=== PATIENT | male | born 1995 | race Hispanic/Latino ===

== ENCOUNTER 2018-04-02 12:14 | Inpatient (IN) | payer SELFPAY ==
[2018-04-02] MEDS ORDERED: NA CHLORIDE 0.9% 2,000 ML ONE (12:32)
[2018-04-02] MEDS ORDERED: ONDANSETRON 4 MG/2 ML VIAL ONE (12:32)
[2018-04-02] MEDS ORDERED: FENTANYL CITR 100 MCG/2 ML ONE (12:47)
[2018-04-02 12:49] LABS: Arterial Blood Carboxyhemoglob 1.4 % (0-1.5); Blood Gas Oxyhemoglobin 93.9 % (94-97); Blood O2 Saturation 96.6 % (92-98.5)
--- NOTE | 2018-04-02 12:58 | ER ---
Nurse's Notes [facility] Name: Tano Shelley Jr Age: 22 yrs Sex: Male : 1995 Arrival Date: 04/02/2018 Time: 12:18 Bed 6 Private MD: None, None Diagnosis: Type 1 diabetes mellitus with ketoacidosis without coma Presentation: 04/02 12:24 Presenting complaint: Patient states: N/V shortness of breath with high FSBS at home. aj Transition of care: patient was not received from another setting of care. Onset of symptoms was April 02, 2018. Risk Assessment: Do you want to hurt yourself or someone else? Patient reports no desire to harm self or others. Care prior to arrival: None. 12:24 Method Of Arrival: Wheelchair 12:24 Acuity: SELIN 2 aj Triage Assessment: 12:25 General: Appears in no apparent distress. ill, slender, Behavior is calm, cooperative. aj Pain: Denies pain. Neuro: Level of Consciousness is awake, alert, obeys commands, Oriented to person, place, time, situation, Appropriate for age. Respiratory: Airway is patent Respiratory effort is even, unlabored, Respiratory pattern is regular, symmetrical. GI: Reports nausea, vomiting. Derm: Skin is intact, is healthy with good turgor, Skin is pink, warm \T\ dry. normal. Historical: - Allergies: 12:25 No Known Drug Allergies; aj - Home Meds: 12:25 Novolin 70/30 [place] Sub-Q [Active]; aj - PMHx: 12:25 Diabetes - IDDM; aj - Immunization history:: Adult Immunizations up to date. - Social history:: Smoking status: Patient uses tobacco products, smokes one-half pack cigarettes per day, Patient/guardian denies using alcohol, street drugs. - Ebola Screening: : Patient negative for fever greater than or equal to 101.5 degrees Fahrenheit, and additional compatible Ebola Virus Disease symptoms Patient denies exposure to infectious person Patient denies travel to an Ebola-affected area in the 21 days before illness onset No symptoms or risks identified at this time. Screenin:00 Abuse screen: Denies threats or abuse. Denies injuries from another. Nutritional hb screening: No deficits noted. Tuberculosis screening: No symptoms or risk factors identified. Fall Risk None identified. Assessment: 12:40 General: Appears in no apparent distress. ill, Behavior is calm, cooperative. Pain: hb Pain currently is 7 out of 10 on a pain scale. Neuro: Level of Consciousness is obeys commands, lethargic, Oriented to person, place, time, situation. Cardiovascular: Heart tones S1 S2 present Capillary refill < 3 seconds Patient's skin is warm and dry. Rhythm is sinus tachycardia. Respiratory: Airway is patent Trachea midline Respiratory effort is even, unlabored, Respiratory pattern is tachypnea Breath sounds are clear bilaterally. GI: Abdomen is non-distended, Bowel sounds present X 4 quads. Abd is soft and non tender X 4 quads. Reports nausea. : No signs and/or symptoms were reported regarding the genitourinary system. EENT: No signs and/or symptoms were reported regarding the EENT system. Derm: Skin is intact, with poor turgor Skin is dry. Musculoskeletal: No signs and/or symptoms reported regarding the musculoskeletal system. 13:35 Reassessment: Insulin drip started at 5units/hr. hb 14:30 Reassessment: BGL 360. Insulin drip continues at 5 units/hr. Family remains at bedside. hb Admission ordered, awaiting room assignment at this time. 15:30 Reassessment: Patient appears in no apparent distress at this time. BGL 303, Report hb called to DAVID Potter. VSS. Insulin infusion continues at 5units/hrf. Vital Signs: 12:25 BP 120 / 89; Pulse 124; Resp 28; Temp 97.4; Pulse Ox 98% on R/A; Weight 45.36 kg; aj Height 5 ft. 6 in. (167.64 cm); 13:30 BP 124 / 85; Pulse 116; Resp 24; Pulse Ox 98% on R/A; Pain 6/10; hb 14:30 BP 126 / 88; Pulse 109; Resp 25; Pulse Ox 98% on R/A; Pain 6/10; hb 15:30 BP 122 / 80; Pulse 104; Resp 22; Pulse Ox 100% on R/A; Pain 6/10; hb 12:25 Body Mass Index 16.14 (45.36 kg, 167.64 cm) aj ED Course: 12:18 Patient arrived in ED. sb2 12:18 None, None is Private Physician. sb2 12:25 Triage completed. aj 12:25 Arm band placed on left wrist. Patient placed in an exam room, on a stretcher. aj 12:27 Mauro Beavers PA is PHCP. jr8 12:27 Moncho Birch MD is Attending Physician. jr8 12:29 Milagros Reynolds, DAVID is Primary Nurse. hb 12:30 Patient has correct armband on for positive identification. Placed in gown. Bed in low hb position. Call light in reach. Side rails up X 1. 12:43 Inserted saline lock: 20 gauge in right antecubital area, using aseptic technique. hb Blood collected. 12:57 Annalee Martinez MD is Hospitalizing Provider. jr8 13:17 EKG done, by medication technician. reviewed by Mauro AC. at1 13:23 Inserted saline lock: 20 gauge in right forearm, using aseptic technique. wrist, using dh3 aseptic technique. 13:58 CT completed. Patient tolerated procedure well. Patient moved to CT via stretcher. Patient moved back from CT. 15:30 No provider procedures requiring assistance completed. Patient admitted, IV remains in hb place. Administered Medications: 12:43 Drug: NS 0.9% 1000 ml Route: IV; Rate: 1000 ml; Site: right antecubital; hb 12:43 Drug: NS 0.9% 1000 ml Route: IV; Rate: 1000 ml; Site: right antecubital; hb 12:43 Drug: Zofran 4 mg Route: IVP; Site: right antecubital; hb 12:47 Drug: fentaNYL (PF) 25 mcg Route: IVP; Site: right antecubital; hb 13:28 Drug: Insulin Drip - (Insulin Regular Human 100 units, NS 0.9% 100 ml) {Co-Signature: hb ss (Porsha Guerra RN).} Route: IV; Rate: calculated rate; Site: right wrist; Point of Care Testing: Blood Glucose: 12:27 Blood Glucose: High (>450 mg/dL); aj 14:39 Blood Glucose: 360 mg/dL; hb 15:25 Blood Glucose: 303 mg/dL; hb Ranges: Outcome: 12:57 Decision to Hospitalize by Provider. jr8 15:30 Admitted to Tele accompanied by nurse, via stretcher, room ICU6, on monitor, with hb chart, Report called to DAVID Potter 15:30 Condition: stable 15:30 Instructed on the need for admit, Demonstrated understanding of instructions. 15:53 Patient left the ED. hb Signatures: Sydni Bowman, Patt Sahu RN, Josh, PA PA jr8 Sydni koo, lieutenant governor EKG Tat1 Milagros Reynolds RN RN hb Herrera, Deanna 3 Becky Faust 2 Porsha Guerra RN ss
--- NOTE | 2018-04-02 12:58 | EDPHYS ---
Physician Documentation [facility] Name: Tano Shelley Jr Age: 22 yrs Sex: Male : 1995 Arrival Date: 04/02/2018 Time: 12:18 Bed 6 Private MD: None, None ED Physician Moncho Birch HPI: 04/02 12:53 This 22 yrs old Male presents to ER via Wheelchair with complaints of DIBETIC jr8 PROBLEM. 12:53 Sudden onset today of nausea, weakness, shortness of breath. History of Type 1 jr8 diabetes. BGL > 500 per reader here. Denies recent illness or change in medications. Stated that he has been in DKA in past . Onset: The symptoms/episode began/occurred acutely, today. Severity of symptoms: At their worst the symptoms were moderate in the emergency department the symptoms are unchanged. The patient has experienced similar episodes in the past, a few times. The patient has not recently seen a physician. Historical: - Allergies: 12:25 No Known Drug Allergies; aj - Home Meds: 12:25 Novolin 70/30 [place] Sub-Q [Active]; aj - PMHx: 12:25 Diabetes - IDDM; aj - Immunization history:: Adult Immunizations up to date. - Social history:: Smoking status: Patient uses tobacco products, smokes one-half pack cigarettes per day, Patient/guardian denies using alcohol, street drugs. - Ebola Screening: : Patient negative for fever greater than or equal to 101.5 degrees Fahrenheit, and additional compatible Ebola Virus Disease symptoms Patient denies exposure to infectious person Patient denies travel to an Ebola-affected area in the 21 days before illness onset No symptoms or risks identified at this time. ROS: 12:53 Eyes: Negative for injury, pain, redness, and discharge, ENT: Negative for injury, jr8 pain, and discharge, Neck: Negative for injury, pain, and swelling, Cardiovascular: Negative for chest pain, palpitations, and edema, Back: Negative for injury and pain, MS/Extremity: Negative for injury and deformity, Skin: Negative for injury, rash, and discoloration, Neuro: Negative for headache, weakness, numbness, tingling, and seizure. 12:53 Constitutional: Positive for fatigue, malaise. 12:53 Respiratory: Positive for shortness of breath, Negative for cough, dyspnea on exertion, sputum production, wheezing. 12:53 Abdomen/GI: Positive for nausea, Negative for abdominal pain, vomiting, diarrhea, constipation, abdominal distension, anorexia, dysphagia, hematemesis, black/tarry stool, rectal pain, rectal bleeding, bowel incontinence, flatulence. Exam: 12:53 Eyes: Pupils equal round and reactive to light, extra-ocular motions intact. Lids and jr8 lashes normal. Conjunctiva and sclera are non-icteric and not injected. Cornea within normal limits. Periorbital areas with no swelling, redness, or edema. ENT: Nares patent. No nasal discharge, no septal abnormalities noted. Tympanic membranes are normal and external auditory canals are clear. Oropharynx with no redness, swelling, or masses, exudates, or evidence of obstruction, uvula midline. Mucous membranes moist. Neck: Trachea midline, no thyromegaly or masses palpated, and no cervical lymphadenopathy. Supple, full range of motion without nuchal rigidity, or vertebral point tenderness. No Meningismus. Back: No spinal tenderness. No costovertebral tenderness. Full range of motion. Skin: Warm, dry with normal turgor. Normal color with no rashes, no lesions, and no evidence of cellulitis. MS/ Extremity: Pulses equal, no cyanosis. Neurovascular intact. Full, normal range of motion. Neuro: Awake and alert, GCS 15, oriented to person, place, time, and situation. Cranial nerves II-XII grossly intact. Motor strength 5/5 in all extremities. Sensory grossly intact. Cerebellar exam normal. Normal gait. 12:53 Cardiovascular: Rate: tachycardic, Rhythm: regular, Pulses: Pulses are 2+ in right radial artery and left radial artery. Heart sounds: normal, Edema: is not appreciated. 12:53 Respiratory: the patient does not display signs of respiratory distress, Respirations: tachypnea, Breath sounds: are clear throughout, no bronchial sounds, no decreased breath sounds, no rales, rhonchi, no stridor, no wheezing. 12:53 Abdomen/GI: Inspection: abdomen appears normal, Bowel sounds: active, all quadrants, Palpation: soft, in all quadrants, mild abdominal tenderness, in the anterior aspect of left lateral abdomen, posterior aspect of left lateral abdomen and left upper quadrant, mass, is not appreciated, rebound tenderness, is not appreciated, voluntary guarding, is not appreciated, involuntary guarding, is not appreciated, no appreciated organomegaly, Indicators: McBurney's point is not tender, Rojas's sign is negative, Rovsing's sign is negative, Liver: no appreciated palpable abnormalities, tenderness, is not appreciated. 15:44 ECG was reviewed by the Attending Physician. jr8 Vital Signs: 12:25 BP 120 / 89; Pulse 124; Resp 28; Temp 97.4; Pulse Ox 98% on R/A; Weight 45.36 kg; aj Height 5 ft. 6 in. (167.64 cm); 13:30 BP 124 / 85; Pulse 116; Resp 24; Pulse Ox 98% on R/A; Pain 6/10; hb 14:30 BP 126 / 88; Pulse 109; Resp 25; Pulse Ox 98% on R/A; Pain 6/10; hb 15:30 BP 122 / 80; Pulse 104; Resp 22; Pulse Ox 100% on R/A; Pain 6/10; hb 12:25 Body Mass Index 16.14 (45.36 kg, 167.64 cm) aj MDM: 12:27 Patient medically screened. jr8 12:56 Data reviewed: vital signs, nurses notes, lab test result(s), EKG, and as a result, I 8 will admit patient. Data interpreted: Pulse oximetry: on room air is 98 %. Interpretation: normal. Counseling: I had a detailed discussion with the patient and/or guardian regarding: the historical points, exam findings, and any diagnostic results supporting the discharge/admit diagnosis, lab results, the need for further work-up and treatment in the hospital. 12:56 Physician consultation: Annalee Martinez MD was called at 12:56, was contacted at 12:57, jr8 regarding admission, to the ICU, consult, patient's condition, and will see patient. 04/02 12:27 Order name: Glucose, Ancillary Testing; Complete Time: 12:53 EDNM 04/02 12:27 Order name: Basic Metabolic Panel; Complete Time: 13:48 8 04/02 12:27 Order name: CBC with Diff; Complete Time: 14:33 jr8 04/02 12:27 Order name: Creatinine for Radiology; Complete Time: 13:36 jr8 04/02 12:27 Order name: Hepatic Function; Complete Time: 13:48 8 04/02 12:27 Order name: Lipase; Complete Time: 13:48 jr8 04/02 12:27 Order name: Ketone, Serum; Complete Time: 13:48 jr8 04/02 12:27 Order name: ABG; Complete Time: 13:06 jr8 04/02 13:36 Order name: CT Stone Protocol 8 04/02 14:10 Order name: CT; Complete Time: 14:11 EDMS 04/02 14:33 Order name: Manual Differential; Complete Time: 14:33 EDMS 04/02 14:42 Order name: Glucose, Ancillary Testing; Complete Time: 14:43 EDMS 04/02 15:51 Order name: Glucose, Ancillary Testing; Complete Time: 10:13 EDMS 04/02 12:27 Order name: IV Saline Lock; Complete Time: 12:43 jr8 04/02 12:27 Order name: Labs collected and sent; Complete Time: 12:43 jr8 04/02 12:56 Order name: EKG; Complete Time: 12:57 jr8 04/02 12:56 Order name: EKG - Nurse/Tech; Complete Time: 13:09 jr8 EC:44 Rate is 115 beats/min. Rhythm is regular, Sinus tachycardia. QRS Smyer is Normal. MD jr8 interval is normal at 140 msec. QRS interval is normal at 82 msec. QT interval is prolonged at 484 msec. No Q waves. T waves are Peaked in leads V2, V3, V4. No ST changes noted. Clinical impression: Sinus tachycardia and Suggests hyperkalemia. Reviewed by me. Administered Medications: 12:43 Drug: NS 0.9% 1000 ml Route: IV; Rate: 1000 ml; Site: right antecubital; hb 12:43 Drug: NS 0.9% 1000 ml Route: IV; Rate: 1000 ml; Site: right antecubital; hb 12:43 Drug: Zofran 4 mg Route: IVP; Site: right antecubital; hb 12:47 Drug: fentaNYL (PF) 25 mcg Route: IVP; Site: right antecubital; hb 13:28 Drug: Insulin Drip - (Insulin Regular Human 100 units, NS 0.9% 100 ml) {Co-Signature: hb ss (Porsha Guerra RN).} Route: IV; Rate: calculated rate; Site: right wrist; Point of Care Testing: Blood Glucose: 12:27 Blood Glucose: High (>450 mg/dL); aj 14:39 Blood Glucose: 360 mg/dL; hb 15:25 Blood Glucose: 303 mg/dL; hb Ranges: Critical Glucose Levels:Adult <50 mg/dl or >400 mg/dl <40 mg/dl or >180 mg/dl Disposition: 16:21 Co-signature as Attending Physician, Moncho Birch MD. rn Disposition: 04/02/18 12:57 Hospitalization ordered by Annalee Martinez for Inpatient Admission. Preliminary diagnosis is Type 1 diabetes mellitus with ketoacidosis without coma. - Bed requested for Intensive Care Unit. - Status is Inpatient Admission. hb - Condition is Fair. - Problem is new. - Symptoms are unchanged. UTI on Admission? No Critical care time excluding procedures: 14:21 Critical care time: Bedside Care: 10 minutes, Consultation: 10 minutes, Family jr8 Intervention: 5 minutes, lab and imaging review and interpretation : 20 minutes. Total time: 45 minutes Signatures: Dispatcher [employer] Silvia De Guzman RN RN dw Myers, Amanda, RN RN aj Nieto, Roman, MD MD rn Roszak, Josh, PA PA jr8 Milagros Reynolds RN RN Porsha Guerra RN Corrections: (The following items were deleted from the chart) 14:52 12:57 Hospitalization Ordered by Annalee Martinez MD for Inpatient Admission. Preliminary dw diagnosis is Type 1 diabetes mellitus with ketoacidosis without coma. Bed requested for Intensive Care Unit. Status is Inpatient Admission. Condition is Fair. Problem is new. Symptoms are unchanged. UTI on Admission? No. jr8 15:53 14:52 04/02/2018 12:57 Hospitalization Ordered by Annalee Martinez MD for Inpatient hb Admission. Preliminary diagnosis is Type 1 diabetes mellitus with ketoacidosis without coma. Bed requested for Intensive Care Unit. Status is Inpatient Admission. Condition is Fair. Problem is new. Symptoms are unchanged. UTI on Admission? No. dw
[2018-04-02] MEDS ORDERED: INSULIN -REGULAR HUMAN 100 UNIT in NA CHLORIDE 0.9% 100 ML IV SCH ×2 (13:00→15:49)
[2018-04-02 13:21] LABS: Absolute Lymphocytes (CBC) 2.1 K/uL (0.7-4.9); Absolute Monocytes 0.8 K/uL (0.1-1.3); Absolute Neutrophil 17.9 K/uL (1.8-8.0); Basophils % 0.4 % (0-1.3); Eosinophils % 0.2 % (0-4.4); Hematocrit 58.9 % (39.6-49.0); Lymphocytes % 9.9 % (15.3-44.8); MCH 30.7 pg (27.0-35.0); MCV 101.2 fL (80-100); MPV 9.1 fL (7.6-11.3); RBC Red Blood Cell Count 5.82 M/uL (4.33-5.43)
[2018-04-02 13:35] LABS: Glucose Level 787 mg/dL (65-120); Lipase 23 U/L (22-51); Potassium 5.1 mEq/L (3.6-5.0); Sodium Level 138 mEq/L (135-145)
[2018-04-02 13:36] LABS: Bicarbonate 9 mEq/L (21-31)
[2018-04-02 13:44] LABS: ALT/SGPT 55 IU/L (10-60); AST/SGOT 36 IU/L (10-42); Albumin 5.5 g/dL (3.2-5.5); Alkaline Phosphatase 199 IU/L (42-121); BUN Blood Urea Nitrogen 34 mg/dL (6-20); Bilirubin Direct 0.1 mg/dL (0-0.2); Bilirubin Total 2.2 mg/dL (0.3-1.2); Protein, Total 9.6 g/dL (6.0-8.3)
--- NOTE | 2018-04-02 14:09 | RAD REPORT ---
EXAM DESCRIPTION: CT - Stone Protocol - 04/02/2018 1:58 pm CLINICAL HISTORY: Abdominal pain COMPARISON: November 2017 TECHNIQUE: CT imaging of the abdomen was performed without oral or IV contrast. All CT scans are performed using dose optimization technique as appropriate and may include automated exposure control or mA/KV adjustment according to patient size. FINDINGS: No suspicious findings in the lung bases. No pericardial thickening or effusion. The liver, spleen, and pancreas show no suspicious findings for a non IV contrast study. Cholecystec neelam clips are present. No biliary tree dilatation. Small accessory splenic nodules are present. No hydronephrosis or suspicious mass in either kidney. Isodense masses and pyelonephritis are not exc luded. No bladder abnormality. Prostate gland and seminal vesicles within normal limits. No gastric dilatation or wall thickening. No acute small bowel finding. There is a large amount of st ool filling but not dilating the entirety of the colon. Sigmoid is tortuous and redundant. No appendi citis. No free air, free fluid or inflammatory stranding. No hernia, mass or bulky lymphadenopathy. No suspicious bony findings. Overall exam sensitivity is decreased when no contrast is administered. IMPRESSION: Large stool volume filling the entirety of the colon including a tortuous and redundant sigmoid colon. No appendicitis. No hydronephrosis, obstructing calculus or acute finding. Isodense masses are not excluded and quique lonephritis are not excluded on noncontrast imaging.
[2018-04-02 14:33] LABS: Blood Morphology Comment NOT SEEN (NOT SEEN); Platelet Estimate INCR
--- NOTE | 2018-04-02 15:05 | P.HP ---
Certification for Inpatient Patient admitted to: Inpatient With expected LOS: >2 Midnights Patient will require the following post-hospital care: None Practitioner: I am a practitioner with admitting privileges, knowledge of patient current condition, hospital course, and medical plan of care. Services: Services provided to patient in accordance with Admission requirements found in Title 42 Section 412.3 of the Code of Federal Regulations Patient History Date of Service: 04/02/18 Primary Care Provider: None History of Present Illness: Mr Shelley is a 22 years old male with history of diabetes mellitus type 1, who has recurrently admitted to the hospital due to DKA. At this time he presented to ED complaining of weakness, thirsty, and increasing urination since yesterday. He is known for noncompliance with his medication, however, he states that the last time he got insulin was yesterday. No history of fever or chills. Lab work was remarkable anion gap metabolic acidosis. Toxicology Pending Allergies No Known Drug Allergies Allergy (Verified 11/22/17 21:09) Unknown No Known Allergie Allergy (Uncoded 11/22/17 21:09) Unknown No Known Allergies Allergy (Uncoded 11/22/17 21:09) Unknown Home Medications: Pantoprazole [Protonix Tab*] 40 mg PO DAILY #30 tab 11/23/17 Insulin 70/30 NPH/Reg Human [Novolin 70/30*] 30 unit SQ BIDAC #10 ml 12/04/17 - Past Medical/Surgical History Diabetic: Yes -: Diabetes mellitus type 1 -: Tobacco abuse -: Cocaine abuse -: GERD -: THC abuse -: Noncompliance -: Cholecystectomy Psychosocial/ Personal History: The patient is single. He has 3 children. 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 - Family History Father -: Hypertension, Diabetes - Social History Alcohol use: Yes CD- Drugs: Yes Caffeine use: Yes Review of Systems General: As per HPI Physical Examination - Physical Exam General: Alert, Oriented x3, Mild distress HEENT: Atraumatic, PERRLA, Mucous membr. moist/pink, EOMI, Sclerae nonicteric Neck: Supple, 2+ carotid pulse no bruit, No LAD, Without JVD or thyroid abnormality Respiratory: Clear to auscultation bilaterally, Normal air movement Cardiovascular: Regular rate/rhythm, Normal S1 S2 Gastrointestinal: Normal bowel sounds, No tenderness Musculoskeletal: No tenderness Integumentary: No rashes Neurological: Normal speech, Normal tone Lymphatics: No axilla or inguinal lymphadenopathy - Studies Laboratory Data (last 24 hrs) 04/02/18 12:45: Creatinine 1.56 H 04/02/18 12:45: WBC 21.0 H*, Hgb 17.9, Hct 58.9 H, Plt Count 466 H 04/02/18 12:45: Sodium 138, Potassium 5.1 H, BUN 34 H, Creatinine 1.65 H, Glucose 787 H*, Total Bilirubin 2.2 H, AST 36, ALT 55, Alkaline Phosphatase 199 H, Lipase 23 Assessment and Plan - Problems (Diagnosis) (1) Diabetic ketoacidosis Onset Date: 09/26/15 Current Visit: No Status: Resolved Plan: DKA with Anion gap > 20 -IV fluids, Insulin ggt and Electrolyte replacement -BMP and Acetone q4h -Switch to basal insulin once gap closed x 2 and negative ketones Qualifiers: Diabetes mellitus type: type 2 Diabetes mellitus complication detail: without coma Qualified Code(s): E11.10 - Type 2 diabetes mellitus with ketoacidosis without coma (2) Cocaine abuse Onset Date: 11/25/17 Current Visit: No Status: Chronic (3) Insulin dependent diabetes mellitus Onset Date: 09/26/15 Current Visit: No Status: Chronic (4) Tetrahydrocannabinol (THC) use disorder, mild, abuse Onset Date: 11/25/17 Current Visit: No Status: Chronic (5) Tobacco abuse Onset Date: 11/25/17 Current Visit: No Status: Chronic (6) GERD (gastroesophageal reflux disease) Onset Date: 11/25/17 Current Visit: No Status: Chronic Qualifiers: Esophagitis presence: without esophagitis Qualified Code(s): K21.9 - Gastro -esophageal reflux disease without esophagitis Discharge Plan: Home Plan to discharge in: 24 Hours - Advance Directives Does patient have a Living Will: No Does patient have a Durable POA for Healthcare: No - Code Status/Comfort Care Code Status Assessed: Yes Critical Care: No
[2018-04-02] MEDS ORDERED: ONDANSETRON 4 MG/2 ML VIAL IV PRN (15:49)
[2018-04-02] MEDS ORDERED: NA CHLORIDE 0.9% 1,000 ML IV SCH ×2 (15:49→16:00)
[2018-04-02] MEDS ORDERED: Morphine 2 MG/2 ML SYR IV PRN (16:11)
[2018-04-02] MEDS ORDERED: Morphine 2 MG/2 ML SYR ONE (16:20)
[2018-04-02 16:43] LABS: BUN Blood Urea Nitrogen 28 mg/dL (6-20); Glucose Level 345 mg/dL (65-120); Potassium 4.4 mEq/L (3.6-5.0); Sodium Level 143 mEq/L (135-145)
[2018-04-02 16:50] LABS: Bicarbonate 10 mEq/L (21-31)
[2018-04-02 17:41] VITALS: BMI 18.6
[2018-04-02 18:11] VITALS: O2SAT 98
[2018-04-02] MEDS: D5W 1,000 ML IV SCH (18:40)
[2018-04-02] MEDS ORDERED: D5W 1,000 ML IV ONE (18:41)
[2018-04-02 20:12] LABS: BUN Blood Urea Nitrogen 23 mg/dL (6-20); Bicarbonate 19 mEq/L (21-31); Glucose Level 256 mg/dL (65-120); Potassium 4.7 mEq/L (3.6-5.0); Sodium Level 145 mEq/L (135-145)
[2018-04-02] MEDS: MORPHINE 4 MG/ML SYR IV PRN (22:08)
[2018-04-02 22:18] LABS: Urine Appearance TURBID; Urine Blood NEGATIVE (NEG); Urine Color YELLOW; Urine Glucose 3+ (NEG); Urine Protein 1+ (NEG); Urine Specific Gravity >=1.030 (1.005-1.030); Urine Urobilinogen 0.2 mg/dL (0.2-1.0); Urine pH 5.5 (5.0-7.0)
[2018-04-02 22:32] LABS: Barbiturates NEGATIVE (NEGATIVE); Benzodiazepines NEGATIVE (NEGATIVE); Cocaine NEGATIVE (NEGATIVE); METHAMPHETAM NEGATIVE (NEGATIVE); Opiates NEGATIVE (NEGATIVE); Phencyclidine NEGATIVE (NEGATIVE); THC Cannibis POSITIVE (NEGATIVE)
[2018-04-02 22:35] LABS: Urine Bilirubin NEGATIVE (NEG); Urine Microscopic Reflex ORDER UMIC
--- NOTE | 2018-04-02 22:40 | EKG ---
Test Date: 2018-04-02 Test Time: 13:07:56 Blueprint Developer: NONA MEASUREMENT RESULTS: Intervals: Rate: 115 IN: 140 QRSD: 82 QT: 350 QTc: 484 [place]: P: 68 IN: 140 QRS: 105 T: 56 INTERPRETIVE STATEMENTS: Sinus tachycardia Biatrial enlargement Rightward axis Abnormal ECG Compared to ECG 12/02/2017 10:52:27 No significant changes Electronically Signed On 04-02-18 22:40:30 CDT by Champ Leung
[2018-04-02 23:02] LABS: Urine Bacteria <20 /HPF (NONE SEEN); Urine Culture Reflex Order NOT NEEDED; Urine RBC NONE SEEN /HPF (NONE SEEN)
[2018-04-03 00:35] LABS: BUN Blood Urea Nitrogen 20 mg/dL (6-20); Bicarbonate 22 mEq/L (21-31); Glucose Level 232 mg/dL (65-120); Potassium 3.6 mEq/L (3.6-5.0); Sodium Level 137 mEq/L (135-145)
[2018-04-03] MEDS: D5W 1,000 ML IV SCH ×2 (01:22→07:49)
[2018-04-03 05:23] LABS: Absolute Monocytes 1.9 K/uL (0.1-1.3); Absolute Neutrophil 15.6 K/uL (1.8-8.0); Basophils % 0.6 % (0-1.3); Eosinophils % 0.3 % (0-4.4); Hematocrit 46.7 % (39.6-49.0); MCH 31.1 pg (27.0-35.0); MCV 93.7 fL (80-100); MPV 8.3 fL (7.6-11.3); Monocytes % 9.6 % (3.3-12.3); RBC Red Blood Cell Count 4.99 M/uL (4.33-5.43)
[2018-04-03 05:44] LABS: BUN Blood Urea Nitrogen 18 mg/dL (6-20); Bicarbonate 23 mEq/L (21-31); Glucose Level 261 mg/dL (65-120); Magnesium 1.8 mg/dL (1.8-2.5); Phosphorus 2.3 mg/dL (2.5-4.3); Potassium 3.5 mEq/L (3.6-5.0); Sodium Level 136 mEq/L (135-145)
[2018-04-03] MEDS ORDERED: POTASSIUM PHOS IN 0.9 % NACL 15 MMOL/250 ML BAG IV ONE (07:30)
[2018-04-03] MEDS ORDERED: MAGNESIUM SULFATE 1 gm IVPB 1 GM/100 ML BAG IV ONE (07:30)
[2018-04-03] MEDS ORDERED: INSULIN 70/30 100 UNITS/ML SQ SCH (08:15)
[2018-04-03] MEDS ORDERED: POLYETHYL GLY 3350 17 GM/DOSE PO SCH (09:00)
[2018-04-03] MEDS ORDERED: NA CHLORIDE 0.9% 1,000 ML IV SCH (09:00)
[2018-04-03] MEDS: MORPHINE 4 MG/ML SYR IV PRN (10:14)
[2018-04-03] MEDS ORDERED: GLUCAGON 1 MG/VIAL IM PRN (12:30)
[2018-04-03] MEDS ORDERED: D50W 25 GM/50 ML SYRINGE IV PRN (12:30)
--- NOTE | 2018-04-03 14:56 | P.DS ---
Admission Date: 04/02/18 Discharge Date: 04/03/18 Primary Care Provider: None Disposition: ROUTINE DISCHARGE Discharge Condition: GOOD Brief History of Present Illness: By Dr Martinez Mr Shelley is a 22 years old male with history of diabetes mellitus type 1, who has recurrently admitted to the hospital due to DKA. At this time he presented to ED complaining of weakness, thirsty, and increasing urination since yesterday. He is known for noncompliance with his medication, however, he states that the last time he got insulin was yesterday. No history of fever or chills. Lab work was remarkable anion gap metabolic acidosis. Toxicology Pending Hospital Course: The patient was admitted to the hospital due to DKA. There was no obvious infection on top of this problem. This was potentially secondary to non- comliance with his medication. He was treated with aggressive IV fluids and Insulin drip per DKA protocol. Anion Gap at admission was 36, he had electrolyte disturbance and acute renal Injury. Gradually, the patient improved his sympotms, as well as his metabolic status and renal function. Anion gap is closed. At this point the patient is clinically and hemodynamically stable to be discharged. Highly encourage to establish a PCP. He will be discharge in stable condition. Vital Signs/Physical Exam: Temp Pulse Resp BP Pulse Ox 97.7 F 96 H 16 128/99 H 100 04/03/18 04:00 04/03/18 10:00 04/03/18 10:00 04/03/18 10:00 04/03/18 09:00 General: Alert, In no apparent distress HEENT: Atraumatic, PERRLA, EOMI Neck: Supple, JVD not distended Respiratory: Clear to auscultation bilaterally, Normal air movement Cardiovascular: Regular rate/rhythm, Normal S1 S2 Gastrointestinal: Normal bowel sounds, No tenderness Musculoskeletal: No tenderness Integumentary: No rashes Neurological: Normal speech, Normal tone, Normal affect Lymphatics: No axilla or inguinal lymphadenopathy Laboratory Data at Discharge: WBC 19.6 K/uL (4.3-10.9) H 04/03/18 05:04 Hgb 15.5 g/dL (13.6-17.9) 04/03/18 05:04 Hct 46.7 % (39.6-49.0) D 04/03/18 05:04 Plt Count 370 K/uL (152-406) D 04/03/18 05:04 Sodium 136 mEq/L (135-145) 04/03/18 05:04 Potassium 3.5 mEq/L (3.6-5.0) L 04/03/18 05:04 BUN 18 mg/dL (6-20) 04/03/18 05:04 Creatinine 0.62 mg/dL (0.61-1.24) 04/03/18 05:04 Glucose 261 mg/dL (65-120) H 04/03/18 05:04 Phosphorus 2.3 mg/dL (2.5-4.3) L 04/03/18 05:04 Magnesium 1.8 mg/dL (1.8-2.5) D 04/03/18 05:04 Total Bilirubin 2.2 mg/dL (0.3-1.2) H 04/02/18 12:45 AST 36 IU/L (10-42) 04/02/18 12:45 ALT 55 IU/L (10-60) 04/02/18 12:45 Alkaline Phosphatase 199 IU/L (42-121) H 04/02/18 12:45 Lipase 23 U/L (22-51) 04/02/18 12:45 Home Medications: Insulin 70/30 NPH/Reg Human [Novolin 70/30*] 30 unit SQ BIDAC #10 ml 12/04/17 Patient Discharge Instructions: highly encourage to establish PCP CAM Diet: ADA Activity: Ad miguelito Time spent managing pt's care (in minutes): 40
[2018-04-03 15:10] VITALS: BP 131/91
[2018-04-03 15:21] VITALS: TEMP 97.9
[2018-04-03] MEDS ORDERED: INSULIN -REGULAR HUMAN 50 UNIT/0.5 ML ML SQ SCH (16:30)
== END 2018-04-03 15:10 | disposition home or self-care (01) | DRG 638 ==
LOC: ER 12:14 → ERHOLD 12:57 → 3RD-ICU 15:19
PROVIDERS: ADMIT Physician Assistant; ATTEND Family Medicine
DX: E10.10 Type 1 diabetes mellitus with ketoacidosis without coma (principal); N17.9 Acute kidney failure, unspecified; Z91.14 Patient's other noncompliance with medication regimen; K21.9 Gastro-esophageal reflux disease without esophagitis
CPT/HCPCS: 36415; 74176; 76377; 80048; 80076; 80307; 81003; 81015; 82009; 82805; 82962; 83690; 83735; 84100; 85025; 93005; 99285; J2270; J2405; J3010; J3475; J7030

== ENCOUNTER 2018-10-10 17:38 | Inpatient (IN) | payer SELFPAY ==
--- NOTE | 2018-10-10 18:33 | EDPHYS ---
Physician Documentation [facility] Name: Tano Shelley Jr Age: 23 yrs Sex: Male : 1995 Arrival Date: 10/10/2018 Time: 17:40 Bed 24 Private MD: ED Physician Adonis Ramos HPI: 10/10 18:26 This 23 yrs old Male presents to ER via Ambulatory with complaints of Vomiting keturah Blood. 18:26 The patient presents with abdominal pain. Onset: The symptoms/episode began/occurred 2 keturah day(s) ago. The patient presents to the emergency department with nausea, vomiting, abdominal pain, of the right upper quadrant and left upper quadrant. Onset: The symptoms/episode began/occurred 2 day(s) ago. Possible causes: unknown. Associated signs and symptoms: Pertinent positives: abdominal pain, nausea, vomiting. Modifying factors: The symptoms are alleviated by nothing, the symptoms are aggravated by nothing. Historical: - Allergies: 18:13 No Known Allergies; ss - PMHx: 18:13 Diabetes - IDDM; ss - PSHx: 18:13 Cholecystectomy; ss - Immunization history:: Adult Immunizations up to date. - Social history:: Smoking status: Patient/guardian denies using alcohol, street drugs. - Ebola Screening: : Patient denies exposure to infectious person Patient denies travel to an Ebola-affected area in the 21 days before illness onset. - Family history:: not pertinent. ROS: 18:26 Constitutional: Negative for fever, chills, and weight loss, Eyes: Negative for injury, keturah pain, redness, and discharge, ENT: Negative for injury, pain, and discharge, Neck: Negative for injury, pain, and swelling, Back: Negative for injury and pain, : Negative for injury, bleeding, discharge, and swelling, MS/Extremity: Negative for injury and deformity, Skin: Negative for injury, rash, and discoloration, Psych: Negative for depression, anxiety, suicide ideation, homicidal ideation, and hallucinations, Allergy/Immunology: Negative for hives, rash, and allergies, Endocrine: Negative for neck swelling, polydipsia, polyuria, polyphagia, and marked weight changes, Hematologic/Lymphatic: Negative for swollen nodes, abnormal bleeding, and unusual bruising. 18:26 Cardiovascular: Positive for palpitations. 18:26 Respiratory: Positive for shortness of breath. 18:26 Abdomen/GI: Positive for abdominal pain, nausea and vomiting. 18:26 Neuro: Positive for weakness. 18:26 Endocrine: Positive for polydipsia. Exam: 18:26 Constitutional: This is a well developed, well nourished patient who is awake, alert, keturah and in no acute distress. Head/Face: Normocephalic, atraumatic. Eyes: Pupils equal round and reactive to light, extra-ocular motions intact. Lids and lashes normal. Conjunctiva and sclera are non-icteric and not injected. Cornea within normal limits. Periorbital areas with no swelling, redness, or edema. ENT: Nares patent. No nasal discharge, no septal abnormalities noted. Tympanic membranes are normal and external auditory canals are clear. Oropharynx with no redness, swelling, or masses, exudates, or evidence of obstruction, uvula midline. Mucous membranes moist. Neck: Trachea midline, no thyromegaly or masses palpated, and no cervical lymphadenopathy. Supple, full range of motion without nuchal rigidity, or vertebral point tenderness. No Meningismus. Chest/axilla: Normal chest wall appearance and motion. Nontender with no deformity. No lesions are appreciated. Cardiovascular: Regular rate and rhythm with a normal S1 and S2. No gallops, murmurs, or rubs. Normal PMI, no JVD. No pulse deficits. Back: No spinal tenderness. No costovertebral tenderness. Full range of motion. Male : Normal genitalia with no discharge or lesions. Skin: Warm, dry with normal turgor. Normal color with no rashes, no lesions, and no evidence of cellulitis. MS/ Extremity: Pulses equal, no cyanosis. Neurovascular intact. Full, normal range of motion. Neuro: Awake and alert, GCS 15, oriented to person, place, time, and situation. Cranial nerves II-XII grossly intact. Motor strength 5/5 in all extremities. Sensory grossly intact. Cerebellar exam normal. Normal gait. Psych: Awake, alert, with orientation to person, place and time. Behavior, mood, and affect are within normal limits. 18:26 Respiratory: mild respiratory distress is noted, Respirations: normal, Breath sounds: are clear throughout. 18:26 Abdomen/GI: Inspection: abdomen appears normal, Bowel sounds: hyperactive, Palpation: mild abdominal tenderness, in all quadrants, Liver: no appreciated palpable abnormalities, Hernia: not appreciated. Vital Signs: 18:13 BP 135 / 79; Pulse 120; Resp 30; Temp 98.6(TE); Pulse Ox 100% on R/A; Weight 58.97 kg; ss Height 5 ft. 5 in. (165.10 cm); Pain 10/10; 19:00 BP 132 / 84; Pulse 115; Resp 28; Pulse Ox 99% on R/A; kr2 20:00 BP 135 / 92; Pulse 108; Resp 18; Pulse Ox 100% ; kr2 18:13 Body Mass Index 21.63 (58.97 kg, 165.10 cm) ss MDM: 18:15 Patient medically screened. [facility] 18:30 Data reviewed: vital signs, nurses notes, lab test result(s), EKG, radiologic studies, keturah plain films. 10/10 18:25 Order name: Basic Metabolic Panel; Complete Time: 19:33 [facility] 10/10 18:25 Order name: CBC with Diff; Complete Time: 19:06 [facility] 10/10 18:25 Order name: LFT's; Complete Time: 19:33 [facility] 10/10 18:25 Order name: Magnesium; Complete Time: 19:33 [facility] 10/10 18:25 Order name: NT PRO-BNP; Complete Time: 19:33 [facility] 10/10 18:25 Order name: PT-INR; Complete Time: 19:06 [facility] 10/10 18:25 Order name: Troponin (emerg Dept Use Only); Complete Time: 19:33 [facility] 10/10 18:25 Order name: XRAY Chest (1 view) [facility] 10/10 18:25 Order name: Lipase; Complete Time: 19:33 [facility] 10/10 18:25 Order name: Blood Culture Adult (2) [facility] 10/10 18:26 Order name: Lactate; Complete Time: 19:06 [facility] 10/10 20:52 Order name: Urine Dipstick--Ancillary (enter results) em1 10/10 21:53 Order name: Urine Dipstick-Ancillary [facility] 10/10 22:14 Order name: Lactate Sepsis 2 HR Follow-up [facility] 10/10 18:25 Order name: EKG; Complete Time: 18:27 [facility] 10/10 18:25 Order name: Cardiac monitoring; Complete Time: 18:45 [facility] 10/10 18:25 Order name: EKG - Nurse/Tech; Complete Time: 18:45 [facility] 10/10 18:25 Order name: IV Saline Lock; Complete Time: 18:45 [facility] 10/10 18:25 Order name: Labs collected and sent; Complete Time: 18:45 [facility] 10/10 18:25 Order name: O2 Per Protocol; Complete Time: 18:45 [facility] 10/10 18:25 Order name: O2 Sat Monitoring; Complete Time: 19:33 [facility] 10/10 18:35 Order name: IV Saline Lock - Large Bore; Complete Time: 18:44 [facility] 10/10 20:52 Order name: Urine Dipstick-Ancillary (obtain specimen); Complete Time: 20:52 em1 Administered Medications: 18:44 Drug: NS 0.9% 1000 ml Route: IV; Rate: 1 bolus; Site: right antecubital; kr2 20:16 Follow up: Response: No adverse reaction; IV Status: Completed infusion kr2 18:50 Drug: Pepcid 20 mg Route: IVP; Site: right antecubital; kr2 20:15 Follow up: Response: No adverse reaction kr2 19:05 Drug: Rocephin - (cefTRIAXone) 1 grams Route: IVPB; Infused Over: 30 mins; Site: right kr2 antecubital; 20:15 Follow up: Response: No adverse reaction; IV Status: Completed infusion kr2 19:21 Drug: NS 0.9% 1000 ml Route: IV; Rate: 1 bolus; Site: right antecubital; kr2 20:19 Follow up: Response: No adverse reaction; IV Status: Completed infusion kr2 19:21 Drug: Insulin Drip - (Insulin Regular Human 100 units, NS 0.9% 100 ml) {Co-Signature: kr2 mg2 (Demarcus Carlisle RN).} Route: IV; Rate: 4 units/hr; Site: right antecubital; 22:20 Follow up: Response: No adverse reaction; IV Status: Infusion continued upon admission kr2 19:32 Drug: Zofran 4 mg Route: IVP; Site: left antecubital; kr2 20:15 Follow up: Response: No adverse reaction; Nausea is decreased; Vomiting decreased kr2 19:32 Drug: morphine 2 mg Route: IVP; Site: left antecubital; kr2 20:15 Follow up: Response: No adverse reaction; Pain is decreased kr2 19:45 Drug: Insulin Regular Human 6 units {Co-Signature: mg2 (Demarcus Carlisle RN).} Route: kr2 IVP; Site: left antecubital; 20:50 Follow up: Response: No adverse reaction; Temperature is decreased kr2 20:16 Drug: NS 0.9% 1000 ml Route: IV; Rate: 125 ml/hr; Site: right antecubital; kr2 22:20 Follow up: Response: No adverse reaction; IV Status: Infusion continued upon admission kr2 20:38 Drug: NS 0.9% 500 ml Route: IV; Rate: bolus; Site: left antecubital; kr2 21:15 Follow up: Response: No adverse reaction; IV Status: Completed infusion kr2 23:44 Not Given (Patient Refused): morphine 2 mg IVP once kr2 23:45 Not Given (Patient Refused): Zofran 4 mg IVP once; over 2 minutes kr2 Point of Care Testing: Blood Glucose: 18:26 Blood Glucose: 368 mg/dL; kr2 19:41 Blood Glucose: 387 mg/dL; kr2 21:03 Blood Glucose: 345 mg/dL; kr2 21:51 Blood Glucose: 205 mg/dL; kr2 21:[address] Arauz, admitting physician. Per physician, continue IV saline and kr2 insulin per ER orders Ranges: Critical Glucose Levels:Adult <50 mg/dl or >400 mg/dl <40 mg/dl or >180 mg/dl Disposition: 10/10/18 18:32 Hospitalization ordered by Roxann Ruffin for Inpatient Admission. Preliminary diagnosis are Other specified diabetes mellitus with ketoacidosis without coma, Vomiting. - Bed requested for Intensive Care Unit. - Status is Inpatient Admission. kr2 - Condition is Serious. - Problem is new. - Symptoms have improved. UTI on Admission? No Signatures: Dispatcher [employer] EDMS Adonis Ramos MD MD cha Martinez, Eric em1 Porsha Guerra RN RN Meredith Amaya RN RN kr2 Aleksandr Ervin ag4 Demarcus Carlisle RN mg2 Corrections: (The following items were deleted from the chart) 21:07 18:32 Hospitalization Ordered by Roxann Ruffin MD for Inpatient Admission. Preliminary ag4 diagnosis is Other specified diabetes mellitus with ketoacidosis without coma; Vomiting. Bed requested for Intensive Care Unit. Status is Inpatient Admission. Condition is Serious. Problem is new. Symptoms have improved. UTI on Admission? No. keturah 22:23 21:07 10/10/2018 18:32 Hospitalization Ordered by Roxann Ruffin MD for Inpatient kr2 Admission. Preliminary diagnosis is Other specified diabetes mellitus with ketoacidosis without coma; Vomiting. Bed requested for Intensive Care Unit. Status is Inpatient Admission. Condition is Serious. Problem is new. Symptoms have improved. UTI on Admission? No. ag4
--- NOTE | 2018-10-10 18:33 | ER ---
Nurse's Notes [facility] Name: Tano Shelley Jr Age: 23 yrs Sex: Male : 1995 Arrival Date: 10/10/2018 Time: 17:40 Bed 24 Private MD: Diagnosis: Other specified diabetes mellitus with ketoacidosis without coma;Vomiting Presentation: 10/10 18:12 Presenting complaint: Patient states: vomiting that began last night. Pt smells of ss ketones. Reports he has a history of diabetes. Transition of care: patient was not received from another setting of care. Onset of symptoms was October 09, 2018. Risk Assessment: Do you want to hurt yourself or someone else? Patient reports no desire to harm self or others. Initial Sepsis Screen: Does the patient meet any 2 criteria? RR > 20 per min. HR > 90 bpm. Does the patient have a suspected source of infection? No. Patient's initial sepsis screen is negative. Care prior to arrival: None. 18:12 Method Of Arrival: Ambulatory ss 18:12 Acuity: SELIN 2 ss Triage Assessment: 18:15 General: Appears distressed, uncomfortable, well groomed, well developed, Behavior is kr2 cooperative, anxious, restless, Smells of ketones. Pain: Complains of pain in back and legs Pain does not radiate. Pain currently is 10 out of 10 on a pain scale. Quality of pain is described as aching, sharp, shooting, Is continuous, Alleviated by nothing. Aggravated by increased activity. Historical: - Allergies: 18:13 No Known Allergies; ss - PMHx: 18:13 Diabetes - IDDM; ss - PSHx: 18:13 Cholecystectomy; ss - Immunization history:: Adult Immunizations up to date. - Social history:: Smoking status: Patient/guardian denies using alcohol, street drugs. - Ebola Screening: : Patient denies exposure to infectious person Patient denies travel to an Ebola-affected area in the 21 days before illness onset. - Family history:: not pertinent. Screenin:15 Abuse screen: Denies threats or abuse. Denies injuries from another. Nutritional kr2 screening: No deficits noted. Tuberculosis screening: No symptoms or risk factors identified. Fall Risk IV access (20 points). Gait- Weak (10 pts.). Assessment: 18:20 General: Appears distressed, uncomfortable, well groomed, well developed, Behavior is kr2 cooperative, anxious, restless. Pain: Complains of pain in see triage note. Neuro: Level of Consciousness is awake, alert, obeys commands, Oriented to person, place, time, situation. Cardiovascular: Heart tones S1 S2 present Capillary refill is > 3 seconds in bilateral fingers Patient's skin is warm and dry. Rhythm is regular. Respiratory: Airway is patent Respiratory effort is even, unlabored, Respiratory pattern is hyperventilation Breath sounds are clear bilaterally. GI: Abdomen is flat, non-distended, Pt is actively vomiting clear fluid with small amount of bright red blood. : Reports burning with urination. EENT: Nares are clear bilaterally Oral mucosa is dry. Derm: Skin is intact, with poor turgor Skin is pink, warm \T\ dry. Musculoskeletal: Circulation, motion, and sensation intact. 20:39 Reassessment: Patient appears in no apparent distress at this time. Patient and/or kr2 family updated on plan of care and expected duration. Pain level reassessed. Patient is alert, oriented x 3, equal unlabored respirations, skin warm/dry/pink. Patient denies pain at this time. Patient states feeling better. Vital Signs: 18:13 BP 135 / 79; Pulse 120; Resp 30; Temp 98.6(TE); Pulse Ox 100% on R/A; Weight 58.97 kg; ss Height 5 ft. 5 in. (165.10 cm); Pain 10/10; 19:00 BP 132 / 84; Pulse 115; Resp 28; Pulse Ox 99% on R/A; kr2 20:00 BP 135 / 92; Pulse 108; Resp 18; Pulse Ox 100% ; kr2 18:13 Body Mass Index 21.63 (58.97 kg, 165.10 cm) ED Course: 17:40 Patient arrived in ED. ds1 18:13 Triage completed. ss 18:13 Arm band placed on right wrist. ss 18:15 Adonis Ramos MD is Attending Physician. [facility] 18:15 Patient has correct armband on for positive identification. Placed in gown. Bed in low kr2 position. Call light in reach. Side rails up X2. court monitor on. Pulse ox on. NIBP on. Door closed. Warm blanket given. Head of bed elevated. 18:26 Inserted saline lock: 20 gauge in right antecubital area, using aseptic technique. kr2 Blood collected. 18:30 Roxann Ruffin MD is Hospitalizing Provider. keturah 18:45 XRAY Chest (1 view) In Process Unspecified. EDMS 18:45 Inserted saline lock: 20 gauge in left antecubital area, using aseptic technique. kr2 ,using aseptic technique. By DAVID Tracy. 19:13 Notified ED physician of a critical lab result(s). bicarb 13, glucose 553. fc 20:37 Meredith Amaya, DAVID is Primary Nurse. kr2 22:15 No provider procedures requiring assistance completed. Patient admitted, IV remains in kr2 place. Administered Medications: 18:44 Drug: NS 0.9% 1000 ml Route: IV; Rate: 1 bolus; Site: right antecubital; kr2 20:16 Follow up: Response: No adverse reaction; IV Status: Completed infusion kr2 18:50 Drug: Pepcid 20 mg Route: IVP; Site: right antecubital; kr2 20:15 Follow up: Response: No adverse reaction kr2 19:05 Drug: Rocephin - (cefTRIAXone) 1 grams Route: IVPB; Infused Over: 30 mins; Site: right kr2 antecubital; 20:15 Follow up: Response: No adverse reaction; IV Status: Completed infusion kr2 19:21 Drug: NS 0.9% 1000 ml Route: IV; Rate: 1 bolus; Site: right antecubital; kr2 20:19 Follow up: Response: No adverse reaction; IV Status: Completed infusion kr2 19:21 Drug: Insulin Drip - (Insulin Regular Human 100 units, NS 0.9% 100 ml) {Co-Signature: kr2 mg2 (Demarcus Carlisle RN).} Route: IV; Rate: 4 units/hr; Site: right antecubital; 22:20 Follow up: Response: No adverse reaction; IV Status: Infusion continued upon admission kr2 19:32 Drug: Zofran 4 mg Route: IVP; Site: left antecubital; kr2 20:15 Follow up: Response: No adverse reaction; Nausea is decreased; Vomiting decreased kr2 19:32 Drug: morphine 2 mg Route: IVP; Site: left antecubital; kr2 20:15 Follow up: Response: No adverse reaction; Pain is decreased kr2 19:45 Drug: Insulin Regular Human 6 units {Co-Signature: mg2 (Demarucs Carlisle RN).} Route: kr2 IVP; Site: left antecubital; 20:50 Follow up: Response: No adverse reaction; Temperature is decreased kr2 20:16 Drug: NS 0.9% 1000 ml Route: IV; Rate: 125 ml/hr; Site: right antecubital; kr2 22:20 Follow up: Response: No adverse reaction; IV Status: Infusion continued upon admission kr2 20:38 Drug: NS 0.9% 500 ml Route: IV; Rate: bolus; Site: left antecubital; kr2 21:15 Follow up: Response: No adverse reaction; IV Status: Completed infusion kr2 23:44 Not Given (Patient Refused): morphine 2 mg IVP once kr2 23:45 Not Given (Patient Refused): Zofran 4 mg IVP once; over 2 minutes kr2 Point of Care Testing: Blood Glucose: 18:26 Blood Glucose: 368 mg/dL; kr2 19:41 Blood Glucose: 387 mg/dL; kr2 21:03 Blood Glucose: 345 mg/dL; kr2 21:51 Blood Glucose: 205 mg/dL; kr2 21:[address] Arauz, admitting physician. Per physician, continue IV saline and kr2 insulin per ER orders Ranges: Outcome: 18:32 Decision to Hospitalize by Provider. keturah 22:15 Admitted to ICU accompanied by nurse, accompanied by tech, via stretcher, room 3, with kr2 chart, Report called to Aaron 22:15 Condition: stable 22:15 Instructed on the need for admit, Demonstrated understanding of instructions. 22:23 Patient left the ED. kr2 Signatures: Dispatcher [employer] EDNC Adonis Ramos MD MD cha Chretien, Felicia, RN RN fc Sanford, Demi ds1 Porsha Guerra RN RN ss Meredith Amaya RN RN kr2 Demarcus Carlisle RN mg2 Corrections: (The following items were deleted from the chart) 21:04 20:49 Blood Glucose: Blood Glucose [id number]=645 mg/dL. kr2 kr2
[2018-10-10] MEDS ORDERED: NA CHLORIDE 0.9% 3,000 ML ONE (18:37)
[2018-10-10 18:48] LABS: Absolute Lymphocytes (CBC) 1.9 K/uL (0.7-4.9); Absolute Monocytes 0.7 K/uL (0.1-1.3); Absolute Neutrophil 9.7 K/uL (1.8-8.0); Basophils % 0.5 % (0-1.3); Lymphocytes % 15.1 % (15.3-44.8); MPV 9.8 fL (7.6-11.3); Monocytes % 5.5 % (3.3-12.3); RBC Red Blood Cell Count 5.87 M/uL (4.33-5.43)
[2018-10-10 18:49] LABS: Protime INR 1.03
[2018-10-10] MEDS ORDERED: FAMOTIDINE 20 MG/2 ML VIAL IV ONE (18:57)
[2018-10-10] MEDS ORDERED: CEFTRIAXONE/SWI 1gm 1 GM/10 ML SYR ONE (18:57)
[2018-10-10] MEDS ORDERED: INSULIN -REGULAR HUMAN 100 UNIT in NA CHLORIDE 0.9% 100 ML IV SCH (19:00)
[2018-10-10 19:11] LABS: ALT/SGPT 47 U/L (12-78); AST/SGOT 30 U/L (15-37); Albumin 4.7 g/dL (3.4-5.0); Alkaline Phosphatase 128 U/L (45-117); BUN Blood Urea Nitrogen 16 mg/dL (7-18); Bilirubin Direct 0.2 mg/dL (0-0.2); Bilirubin Total 1.2 mg/dL (0.2-1.0); Glucose Level 553 mg/dL (74-106); Lipase 45 U/L (73-393); Magnesium 1.9 mg/dL (1.8-2.4); NT PRO-BNP 19 pg/mL (<125); Potassium 5.2 mmol/L (3.5-5.1); Protein, Total 8.6 g/dL (6.4-8.2); Sodium Level 134 mmol/L (136-145); Troponin (Emerg Dept Use Only) < 0.02 ng/mL (0.0-0.045)
[2018-10-10 19:14] LABS: Bicarbonate 13 mmol/L (21-32)
[2018-10-10] MEDS ORDERED: ONDANSETRON 4 MG/2 ML VIAL ONE (19:34)
[2018-10-10] MEDS ORDERED: MORPHINE 2 MG/ML SYR ONE (19:34)
--- NOTE | 2018-10-10 19:43 | RAD REPORT ---
EXAM DESCRIPTION: Johnny Single View10/10/2018 6:45 pm CLINICAL HISTORY: Cough COMPARISON: October 2017 FINDINGS: The lungs appear clear of acute infiltrate. The heart is normal size IMPRESSION: No acute abnormalities displayed
[2018-10-10] MEDS ORDERED: INSULIN -REGULAR HUMAN 50 UNIT/0.5 ML ML ONE (19:47)
--- NOTE | 2018-10-10 19:59 | P.HP ---
Certification for Inpatient Patient admitted to: Inpatient With expected LOS: >2 Midnights Practitioner: I am a practitioner with admitting privileges, knowledge of patient current condition, hospital course, and medical plan of care. Services: Services provided to patient in accordance with Admission requirements found in Title 42 Section 412.3 of the Code of Federal Regulations Patient History Date of Service: 10/10/18 Reason for admission: DKA History of Present Illness: Mr Shelley is a 23 years old male with history of DM I, with previous admission for DKA, he is not very compliant, came to ED complaining of abdominal pain associated with nausea/voimiting and diarrhea. He denied fever or chills. No SOB or cough. Lab work remarkable for leukocytosis, CO2 13, anion Gap 26, consistent with DKA. CXR shows no acute abnormalities. He is alert and awake, however, is tachypneic and tachycardic. He states that did not miss any insulin dose. Allergies No Known Drug Allergies Allergy (Verified 11/22/17 21:09) Unknown Home medications list reviewed: Yes Home Medications: Insulin 70/30 NPH/Reg Human [Novolin 70/30*] 30 unit SQ BIDAC #10 ml 12/04/17 - Past Medical/Surgical History Diabetic: Yes -: Diabetes mellitus type 1 -: Tobacco abuse -: Cocaine abuse -: GERD -: THC abuse -: Noncompliance -: Cholecystectomy Psychosocial/ Personal History: The patient is single. He has 3 children. 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 - Family History Father -: Hypertension, Diabetes - Social History Smoking Status: Current every day smoker Counseled patient to stop smoking for: less than 10 minutes Alcohol use: Yes CD- Drugs: Yes Caffeine use: Yes Place of Residence: Home Review of Systems 10-point ROS is otherwise unremarkable Physical Examination - Physical Exam General: Alert, Mild distress (due to abdominal pain) HEENT: Atraumatic, PERRLA, Other (mucous membr. dry ), EOMI, Sclerae nonicteric Neck: Supple, 2+ carotid pulse no bruit, No LAD, Without JVD or thyroid abnormality Respiratory: Clear to auscultation bilaterally, Normal air movement Cardiovascular: Regular rate/rhythm, Normal S1 S2 Gastrointestinal: Normal bowel sounds, No tenderness Musculoskeletal: No tenderness Integumentary: No rashes Neurological: Normal speech, Normal strength at 5/5 x4 extr, Normal tone, Normal affect Lymphatics: No axilla or inguinal lymphadenopathy - Studies Laboratory Data (last 24 hrs) 10/10/18 18:25: PT 12.1, INR 1.03 10/10/18 18:25: WBC 12.3 H, Hgb 17.6, Hct 54.0 H, Plt Count 407 H 10/10/18 18:25: Sodium 134 L, Potassium 5.2 H, BUN 16, Creatinine 1.60 H, Glucose 553 H*, Magnesium 1.9, Total Bilirubin 1.2 H, AST 30, ALT 47, Alkaline Phosphatase 128 H, Lipase 45 L Assessment and Plan - Problems (Diagnosis) (1) Diabetes mellitus Onset Date: 11/25/17 Current Visit: No Status: Chronic Qualifiers: Diabetes mellitus type: type 1 Diabetes mellitus complication status: with ketoacidosis Diabetes mellitus complication detail: without coma Qualified Code(s): E10.10 - Type 1 diabetes mellitus with ketoacidosis without coma (2) Tobacco abuse Onset Date: 11/25/17 Current Visit: No Status: Chronic (3) DKA (diabetic ketoacidoses) Onset Date: 10/07/17 Current Visit: No Status: Resolved Qualifiers: Diabetes mellitus type: type 1 Diabetes mellitus complication detail: without coma Qualified Code(s): E10.10 - Type 1 diabetes mellitus with ketoacidosis without coma - Plan The patient will be admitted to the hospital due to DKA. There is no obvious clinical signs of superimpose infection with his current work up. Will order UA. The patient will be place in ICU for close monitoring, continue Insulin drip , electrolyte replacement, and fluid infusion by DKA protocol. - Advance Directives Does patient have a Living Will: No Does patient have a Durable POA for Healthcare: No - Code Status/Comfort Care Code Status Assessed: Yes Code Status: Full Code Critical Care: Yes (30 min)
[2018-10-10] MEDS ORDERED: NA CHLORIDE 0.9% 1,000 ML ONE (20:30)
[2018-10-10 21:53] LABS: Urine Blood NEGATIVE (NEG); Urine Glucose 2+ (NEG); Urine Protein NEGATIVE (NEG); Urine pH 5.5 (5.0-7.0)
[2018-10-10] MEDS ORDERED: NA CHLORIDE 0.9% 1,000 ML IV SCH (21:55)
[2018-10-10] MEDS ORDERED: ONDANSETRON 4 MG/2 ML VIAL IV PRN (21:55)
[2018-10-10] MEDS ORDERED: ACETAMINOPHEN 500 MG TAB PO PRN (22:44)
[2018-10-10 22:50] LABS: Potassium 4.9 mmol/L (3.5-5.1)
[2018-10-10] MEDS: MORPHINE 2 MG/ML SYR IV PRN (23:02)
[2018-10-10] MEDS: D5 0.45 NS 1,000 ML IV SCH (23:11)
[2018-10-10 23:21] VITALS: O2SAT 100
[2018-10-10 23:38] LABS: Urine Appearance CLEAR; Urine Bilirubin NEGATIVE (NEG); Urine Blood NEGATIVE (NEG); Urine Color YELLOW; Urine Glucose 3+ (NEG); Urine Microscopic Reflex NO UMIC; Urine Protein NEGATIVE (NEG); Urine Specific Gravity 1.025 (1.005-1.030); Urine Urobilinogen 0.2 mg/dL (0.2-1.0); Urine pH 5.5 (5.0-7.0)
[2018-10-10 23:45] LABS: Barbiturates NEGATIVE (NEGATIVE); Benzodiazepines NEGATIVE (NEGATIVE); Cocaine NEGATIVE (NEGATIVE); METHAMPHETAM NEGATIVE (NEGATIVE); Methadone NEGATIVE (NEGATIVE); Opiates NEGATIVE (NEGATIVE); Phencyclidine NEGATIVE (NEGATIVE); THC Cannibis NEGATIVE (NEGATIVE)
[2018-10-11 02:42] LABS: Potassium 4.6 mmol/L (3.5-5.1)
[2018-10-11] MEDS: D5 0.45 NS 1,000 ML IV SCH ×2 (04:49→12:31)
[2018-10-11 05:27] VITALS: BMI 20.8
[2018-10-11 06:27] LABS: Absolute Lymphocytes (CBC) 2.7 K/uL (0.7-4.9); Absolute Monocytes 1.4 K/uL (0.1-1.3); Absolute Neutrophil 11.6 K/uL (1.8-8.0); Basophils % 0.6 % (0-1.3); Hematocrit 42.2 % (39.6-49.0); Lymphocytes % 17.2 % (15.3-44.8); MPV 8.9 fL (7.6-11.3); Monocytes % 8.7 % (3.3-12.3); RBC Red Blood Cell Count 4.79 M/uL (4.33-5.43)
[2018-10-11 06:39] LABS: BUN Blood Urea Nitrogen 10 mg/dL (7-18); Bicarbonate 17 mmol/L (21-32); Glucose Level 154 mg/dL (74-106); Potassium 3.7 mmol/L (3.5-5.1); Sodium Level 145 mmol/L (136-145)
[2018-10-11] MEDS ORDERED: KCL 20 MEQ/100 mL IVPB 20 MEQ/100 ML BAG IV SCH (07:00)
[2018-10-11 07:46] LABS: BUN Blood Urea Nitrogen 10 mg/dL (7-18); Bicarbonate 18 mmol/L (21-32); Glucose Level 138 mg/dL (74-106); Potassium 4.1 mmol/L (3.5-5.1); Sodium Level 142 mmol/L (136-145)
[2018-10-11] MEDS: MORPHINE 2 MG/ML SYR IV PRN ×2 (07:51→14:06)
[2018-10-11] MEDS ORDERED: CEFTRIAXONE/SWI 1gm 1 GM/10 ML SYR IVP SCH (08:00)
[2018-10-11] MEDS ORDERED: CEFTRIAXONE 1 GM/NS 50 ML 1 GM/50 ML BAG IV SCH (08:00)
[2018-10-11] MEDS ORDERED: ENOXAPARIN 40 MG/0.4 ML SQ SCH (09:00)
[2018-10-11] MEDS ORDERED: INFLUENZA VACCINE (for 3y+) 0.5 ML DOSE IMVAC ONE (10:00)
--- NOTE | 2018-10-11 10:28 | RAD REPORT ---
EXAM DESCRIPTION: RAD - Chest Single View - 10/11/2018 10:10 am CLINICAL HISTORY: Fever COMPARISON: October 10 TECHNIQUE: AP portable chest image was obtained 0933 hours . FINDINGS: No pneumonia or focal lung parenchymal process seen. Lung markings are similar to comparis on. Heart and vasculature are normal. No measurable pleural effusion and no pneumothorax. No acute [place] abnormality seen. No acute aortic findings suspected. IMPRESSION: No acute cardiopulmonary process. No new or progressive finding.
[2018-10-11] MEDS ORDERED: SODIUM CHLORIDE 0.9% 10ML INJ IV PRN (10:32)
--- NOTE | 2018-10-11 10:35 | P.PN ---
Subjective Date of Service: 10/11/18 Primary Care Provider: None Chief Complaint: DKA Subjective: Improving (Patient reports that he was treated for Influenza 2 weeks ago with Tamiflu. Patient had fever last night.) Physical Examination - Vital Signs Temperature: 99.9 F Blood Pressure: 142/77 Pulse: 93 Respirations: 14 Pulse Ox (%): 100 - Physical Exam General: Alert, In no apparent distress, Oriented x3, Cooperative HEENT: Atraumatic Neck: Supple Respiratory: Clear to auscultation bilaterally, Normal air movement Cardiovascular: Normal pulses, Regular rate/rhythm Gastrointestinal: Normal bowel sounds, Soft and benign, Non-distended, No tenderness, No masses, No rebound, No guarding Musculoskeletal: No erythema, No tenderness, No warmth Integumentary: No tenderness/swelling, No erythema, No warmth, No cyanosis Neurological: Normal speech, Normal strength at 5/5 x4 extr, Normal tone, Normal affect - Studies Laboratory Data (last 24 hrs) 10/10/18 18:25: PT 12.1, INR 1.03 10/10/18 18:25: WBC 12.3 H, Hgb 17.6, Hct 54.0 H, Plt Count 407 H 10/10/18 18:25: Sodium 134 L, Potassium 5.2 H, BUN 16, Creatinine 1.60 H, Glucose 553 H*, Magnesium 1.9, Total Bilirubin 1.2 H, AST 30, ALT 47, Alkaline Phosphatase 128 H, Lipase 45 L Medications List Reviewed: Yes Assessment & Plan Discharge Plan: Home Plan to discharge in: 24 Hours Physician Review Additional Text: Impression: Diabetic ketoacidosis with history of type 1 diabetes mellitus Fever likely viral with history of influenza 2 weeks ago treated GERD Plan: Diabetic ketoacidosis with history of type 1 diabetes mellitus: Will continue with DKA protocol. If gap close and much improved will consider discontinuing insulin drip and switching over to his regular basal insulin. Will likely keep the patient Overnite to monitor closely. Patient appears compliant since last hospitalization. Urine drug screen negative during this admission. Fever likely viral with history of influenza 2 weeks ago treated: Fever likely viral in nature. Will check strep test and influenza test. Chest x-ray unremarkable. Urinalysis unremarkable. GERD: Will start PPI. Time Spent Managing Pts Care (In Minutes): 55
[2018-10-11] MEDS ORDERED: PANTOPRAZOLE 40 MG INJ IVP SCH (11:00)
[2018-10-11 12:13] LABS: Potassium 3.8 mmol/L (3.5-5.1)
[2018-10-11 16:31] LABS: BUN Blood Urea Nitrogen 8 mg/dL (7-18); Bicarbonate 18 mmol/L (21-32); Glucose Level 256 mg/dL (74-106); Potassium 3.5 mmol/L (3.5-5.1); Sodium Level 137 mmol/L (136-145)
[2018-10-11] MEDS ORDERED: GLUCAGON 1 MG/VIAL IM PRN (17:04)
[2018-10-11] MEDS ORDERED: D50W 25 GM/50 ML SYRINGE IV PRN (17:04)
[2018-10-11 17:17] VITALS: TEMP 98.7
[2018-10-11] MEDS: INSULIN GLARGINE 100 UNITS/ML SQ SCH ×2 (17:36→18:58)
[2018-10-11] MEDS ORDERED: NACHLORIDE 0.45% 1,000 ML IV SCH (18:00)
[2018-10-11] MEDS ORDERED: INSULIN -REGULAR HUMAN 50 UNIT/0.5 ML ML SQ SCH (21:00)
[2018-10-11] MEDS ORDERED: POTASSIUM 25 MEQ EFFERV TAB PO ONE (21:00)
[2018-10-11 21:28] VITALS: BP 151/93
--- NOTE | 2018-10-12 11:35 | EKG ---
Test Date: 2018-10-10 Test Time: 18:42:36 Comb Winder: TM MEASUREMENT RESULTS: Intervals: Rate: 97 AR: 138 QRSD: 82 QT: 346 QTc: 439 [place]: P: 81 AR: 138 QRS: 110 T: 70 INTERPRETIVE STATEMENTS: Normal sinus rhythm Right atrial enlargement Right axis deviation Pulmonary disease pattern Abnormal ECG Compared to ECG 04/02/2018 13:07:56 Sinus tachycardia no longer present Electronically Signed On 10-12-18 11:35:13 SPANISH INTERPRETER/TRANSLATOR by Champ Leung
== END 2018-10-11 20:51 | disposition left against medical advice (07) | DRG 639 ==
LOC: ER 17:38 → ERHOLD 20:04 → 3RD-ICU 21:57
PROVIDERS: ADMIT Internal Medicine; ATTEND Family Medicine
DX: E10.10 Type 1 diabetes mellitus with ketoacidosis without coma (principal); Z79.4 Long term (current) use of insulin; Z91.14 Patient's other noncompliance with medication regimen; F17.210 Nicotine dependence, cigarettes, uncomplicated; F14.10 Cocaine abuse, uncomplicated; F12.10 Cannabis abuse, uncomplicated; K21.9 Gastro-esophageal reflux disease without esophagitis; R50.9 Fever, unspecified; Z86.19 Personal history of other infectious and parasitic diseases
CPT/HCPCS: 36415; 71045; 80048; 80076; 80307; 81003; 82010; 82962; 83605; 83690; 83735; 83880; 84484; 85025; 85610; 87040; 87070; 87081; 87804; 93005; 99285; C9113; G0008; J0696; J1650; J2270; J2405; J7030; Q2035

== ENCOUNTER 2019-07-13 22:17 | Inpatient (IN) | payer SELFPAY ==
--- OUTSIDE RECORDS SUMMARY | 2019-07-13 22:22 | XMS REPORT ---
:1995 [facility] [address] [place] [address] Care Team Providers Name Role Phone Unavailable Unavailable Unavailable Problems This patient has no known problems. Allergies, Adverse Reactions, Alerts This patient has no known allergies or adverse reactions. Medications This patient has no known medications.
[2019-07-13] MEDS ORDERED: ONDANSETRON 4 MG/2 ML VIAL ONE (22:48)
[2019-07-13] MEDS ORDERED: NA CHLORIDE 0.9% 2,000 ML ONE (22:48)
[2019-07-13] MEDS ORDERED: FENTANYL CITR 100 MCG/2 ML ONE (23:29)
[2019-07-13 23:50] LABS: Absolute Lymphocytes (CBC) 1.5 K/uL (0.7-4.9); Basophils % 0.3 % (0-1.3); Hematocrit 58.1 % (39.6-49.0); Lymphocytes % 7.7 % (15.3-44.8); MPV 9.2 fL (7.6-11.3); RBC Red Blood Cell Count 6.35 M/uL (4.33-5.43)
[2019-07-14 00:20] LABS: ALT/SGPT 19 U/L (12-78); AST/SGOT 9 U/L (15-37); Albumin 4.6 g/dL (3.4-5.0); Alkaline Phosphatase 117 U/L (45-117); BUN Blood Urea Nitrogen 23 mg/dL (7-18); Bilirubin Direct 0.2 mg/dL (0-0.2); Bilirubin Total 1.3 mg/dL (0.2-1.0); Lipase 35 U/L (73-393); Potassium 4.1 mmol/L (3.5-5.1); Protein, Total 8.4 g/dL (6.4-8.2); Sodium Level 131 mmol/L (136-145)
[2019-07-14 00:22] LABS: Bicarbonate 10 mmol/L (21-32); Glucose Level 448 mg/dL (74-106)
--- NOTE | 2019-07-14 00:30 | ER ---
Nurse's Notes [facility] Name: Tano Shelley Jr Age: 23 yrs Sex: Male : 1995 Arrival Date: 07/13/2019 Time: 22:23 Bed 28 Private MD: Diagnosis: Type 1 diabetes mellitus with ketoacidosis without coma Presentation: 07/13 22:28 Presenting complaint: Patient states: N/V since Saturday. pt stated Blood sugar at home ak1 was 245. Transition of care: patient was not received from another setting of care. Onset of symptoms is unknown. Risk Assessment: Do you want to hurt yourself or someone else? Patient reports no desire to harm self or others. Initial Sepsis Screen: Does the patient meet any 2 criteria? No. Patient's initial sepsis screen is negative. Does the patient have a suspected source of infection? No. Patient's initial sepsis screen is negative. Care prior to arrival: None. 22:28 Method Of Arrival: Ambulatory ak1 22:28 Acuity: SELIN 2 ak1 22:31 Note pt can not remember when he last took any insulin since Saturday. ak1 Triage Assessment: 22:30 General: Appears ill, slender, Behavior is calm, drowsy. ak1 Historical: - Allergies: 22:30 No Known Allergies; ak1 - Home Meds: 22:30 Novolin 70/30 [place] Sub-Q [Active]; ak1 - PMHx: 22:30 Diabetes - IDDM; ak1 - PSHx: 22:30 Cholecystectomy; ak1 - Immunization history:: Adult Immunizations unknown. - Social history:: Smoking status: Patient uses tobacco products, unknown amount. - Ebola Screening: : No symptoms or risks identified at this time. Screenin:56 Abuse screen: Denies threats or abuse. Denies injuries from another. Nutritional ca1 screening: No deficits noted. Tuberculosis screening: No symptoms or risk factors identified. Fall Risk IV access (20 points). Assessment: 22:56 General: Appears in no apparent distress. comfortable, Behavior is calm, cooperative, ca1 appropriate for age. Pain: Complains of pain in right lower quadrant and right upper quadrant Pain radiates to right mid back and right low back Pain currently is 8 out of 10 on a pain scale. Quality of pain is described as sharp, Pain began 2-3 days ago. Neuro: Level of Consciousness is awake, alert, obeys commands, Oriented to person, place, time, situation. Cardiovascular: Heart tones S1 S2 present Capillary refill < 3 seconds Patient's skin is warm and dry. Rhythm is sinus tachycardia. Respiratory: Airway is patent Respiratory effort is even, unlabored, Respiratory pattern is regular, symmetrical, Breath sounds are clear bilaterally. GI: Abdomen is flat, non-distended, Pt is actively vomiting undigested food, Bowel sounds present X 4 quads. Abd is soft X 4 quads Abdomen is tender to palpation in right upper quadrant and right lower quadrant. : No deficits noted. No signs and/or symptoms were reported regarding the genitourinary system. EENT: No deficits noted. No signs and/or symptoms were reported regarding the EENT system. Derm: Skin is intact, is healthy with good turgor, Skin is pink, warm \T\ dry. Musculoskeletal: Circulation, motion, and sensation intact. Capillary refill < 3 seconds, Range of motion: intact in all extremities. 23:00 General: Appears in no apparent distress. comfortable, Behavior is calm, cooperative, jd3 appropriate for age. Pain: Complains of pain in abdomen Quality of pain is described as sharp. 23:00 Neuro: Level of Consciousness is awake, alert, obeys commands, Oriented to person, jd3 place, time, situation. Cardiovascular: Denies chest pain, Capillary refill < 3 seconds Patient's skin is warm and dry. Respiratory: Airway is patent Respiratory effort is even, unlabored, Respiratory pattern is regular, symmetrical, Denies cough, shortness of breath. GI: Abdomen is flat, non-distended, Bowel sounds present X 4 quads. Abd is soft X 4 quads Abdomen is tender to palpation in right upper quadrant and right lower quadrant Reports nausea, vomiting. : No signs and/or symptoms were reported regarding the genitourinary system. EENT: No signs and/or symptoms were reported regarding the EENT system. Derm: Skin is intact, Skin is dry, Skin is normal, Skin temperature is warm. Musculoskeletal: Circulation, motion, and sensation intact. Range of motion: intact in all extremities. 07/14 00:10 Reassessment: Patient appears in no apparent distress at this time. Patient and/or jd3 family updated on plan of care and expected duration. Pain level reassessed. Patient is alert, oriented x 3, equal unlabored respirations, skin warm/dry/pink. reports some relief from pain. 01:07 Reassessment: Patient appears in no apparent distress at this time. Patient and/or jd3 family updated on plan of care and expected duration. Pain level reassessed. Patient is alert, oriented x 3, equal unlabored respirations, skin warm/dry/pink. pt resting in bed with eyes closed. even and unlabored respirations. call [place] in reach. no signs of distress noted at this time. 01:24 Reassessment: charting continued in [facility]. [facility] Vital Signs: 07/13 22:30 BP 137 / 102; Pulse 124; Resp 22; Temp 98; Pulse Ox 100% on R/A; Weight 58.97 kg; ak1 Height 5 ft. 5 in. (165.10 cm) (R); 23:15 BP 137 / 100; Pulse 103; Resp 20 S; Pulse Ox 99% on R/A; Pain 9/10; jd3 07/14 00:11 BP 119 / 79; Pulse 90; Resp 20 S; Pulse Ox 100% on R/A; Pain 5/10; jd3 01:06 BP 128 / 85; Pulse 90; Resp 18 S; Pulse Ox 100% on R/A; Weight 50 kg (M); Pain 0/10; jd3 13:51 BP 125 / 80; Pulse 70; Resp 16; Temp 98.8; Pulse Ox 100% ; lt1 01:06 Body Mass Index 18.34 (50.00 kg, 165.10 cm) [facility] ED Course: 07/13 22:23 Patient arrived in ED. cl3 22:29 Triage completed. ak1 22:30 Arm band placed on Patient placed in an exam room, on a stretcher, Patient notified of ak1 wait time. 22:34 Mauro Beavers PA is PHCP. jr8 22:34 Roberto Gonzalez MD is Attending Physician. jr8 22:42 Margarita Holloway, DAVID is Primary Nurse. ca1 22:55 No provider procedures requiring assistance completed. Inserted saline lock: 22 gauge ca1 in left antecubital area, using aseptic technique. Blood collected. 22:56 Patient has correct armband on for positive identification. Placed in gown. Bed in low ca1 position. Call light in reach. Side rails up X2. compliance monitor on. Pulse ox on. NIBP on. Warm blanket given. 23:07 Inserted saline lock: 22 gauge in right wrist, using aseptic technique. jd3 23:35 Inserted saline lock: 18 gauge in left antecubital area, using aseptic technique. Blood jd3 collected. placed by TARIQ HERNANDEZ with ultrasound. 23:52 Primary Nurse role handed off by Margarita Holloway RN jd3 23:52 Will Davis RN is Primary Nurse. jd3 07/14 00:27 Augusto Velez DO is Hospitalizing Provider. jr8 01:25 Patient admitted, IV remains in place. jd3 07:02 Primary Nurse role handed off by Will Davis RN bp 07:02 Wesly Garza, DAVID is Primary Nurse. bp 09:57 Primary Nurse role handed off by Wesly Garza RN tw2 09:57 Neena Hurd RN is Primary Nurse. tw2 Administered Medications: 07/13 22:40 Drug: NS 0.9% 1000 ml Route: IV; Rate: 1000 ml; Site: left antecubital; ca1 07/14 00:34 Follow up: Response: No adverse reaction; IV Status: Completed infusion; IV Intake: jd3 1000ml 07/13 22:55 Drug: Zofran 4 mg Route: IVP; Site: left antecubital; ca1 23:55 Follow up: Response: No adverse reaction jd3 23:35 Drug: fentaNYL (PF) 50 mcg Route: IVP; Site: right wrist; jd3 07/14 00:33 Follow up: Response: No adverse reaction; RASS: Alert and Calm (0) jd3 07/13 23:48 Drug: NS 0.9% 1000 ml Route: IV; Rate: 1000 ml; Site: left antecubital; jd3 07/14 00:34 Follow up: Response: No adverse reaction; IV Status: Completed infusion; IV Intake: jd3 1000ml 01:01 Drug: Insulin Drip - (Insulin Regular Human 100 units, NS 0.9% 100 ml) {Co-Signature: jd3 lc1 (Mine Lopez).} Route: IV; Rate: calculated rate; Site: left antecubital; 01:25 Follow up: Response: No adverse reaction; IV Status: Infusion continued upon admission jd3 Point of Care Testing: Blood Glucose: 07/13 22:31 Blood Glucose: 355 mg/dL; ak1 Ranges: Intake: 07/14 00:34 IV: 1000ml; Total: 1000ml. jd3 00:34 IV: 1000ml; Total: 2000ml. jd3 Outcome: 00:27 Decision to Hospitalize by Provider. jr8 01:25 Admitted to ER Hold. Please see [facility] for further documentation. jd3 01:25 Condition: stable 01:25 Instructed on the need for admit, Demonstrated understanding of instructions. 15:19 Patient left the ED. la1 Signatures: Mauro Beavers PA PA jr8 Tariq Duggan RN RN la1 Latoya Dumas RN RN ak1 Neena Hurd RN RN tw2 Will Davis RN RN jd3 Wesly Garza RN RN Margarita Guerrero RN RN ca1 Jolanta Moscoso lt1 Justin Drummond cl3 Mine Lopez lc1 Corrections: (The following items were deleted from the chart) 07/13 23:59 23:48 NS 0.9% 1000 ml IV at 1000 ml in right antecubital jd3 jd3
--- NOTE | 2019-07-14 00:31 | EDPHYS ---
[facility] Name: Tano Shelley Jr Age: 23 yrs Sex: Male : 1995 Arrival Date: 07/13/2019 Time: 22:23 Bed 28 Private MD: ED Physician Roberto Gonzalez HPI: 07/13 22:40 This 23 yrs old Male presents to ER via Ambulatory with complaints of High jr8 Blood Sugar. 22:40 that was potentially precipitated by no particular event. Onset: The symptoms/episode jr8 began/occurred 3 day(s) ago. Associated signs and symptoms: Pertinent positives: anorexia, dry skin, nausea, Pertinent negatives: vomiting. Current symptoms: In the emergency department the patient's symptoms are unchanged from the initial presentation. The patient has experienced similar episodes in the past, several times. The patient has not recently seen a physician. Pt reports he has been "blacked out" since Saturday, feeling ill with nausea and abd pain. . Historical: - Allergies: 22:30 No Known Allergies; ak1 - Home Meds: 22:30 Novolin 70/30 [place] Sub-Q [Active]; ak1 - PMHx: 22:30 Diabetes - IDDM; ak1 - PSHx: 22:30 Cholecystectomy; ak1 - Immunization history:: Adult Immunizations unknown. - Social history:: Smoking status: Patient uses tobacco products, unknown amount. - Ebola Screening: : No symptoms or risks identified at this time. ROS: 22:40 Constitutional: Negative for fever, chills, and weight loss, Eyes: Negative for injury, jr8 pain, redness, and discharge, ENT: Negative for injury, pain, and discharge, Neck: Negative for injury, pain, and swelling, Cardiovascular: Negative for chest pain, palpitations, and edema, Respiratory: Negative for shortness of breath, cough, wheezing, and pleuritic chest pain, Back: Negative for injury and pain, : Negative for injury, bleeding, discharge, and swelling, MS/Extremity: Negative for injury and deformity, Neuro: Negative for headache, weakness, numbness, tingling, and seizure. 22:40 Abdomen/GI: Positive for abdominal pain, nausea, Negative for vomiting, diarrhea, hematemesis, black/tarry stool, rectal pain, rectal bleeding, bowel incontinence. Exam: 22:40 Constitutional: This is a well developed, well nourished patient who is awake, alert, jr8 and in no acute distress. Head/Face: Normocephalic, atraumatic. Eyes: Pupils equal round and reactive to light, extra-ocular motions intact. Lids and lashes normal. Conjunctiva and sclera are non-icteric and not injected. Cornea within normal limits. Periorbital areas with no swelling, redness, or edema. ENT: Nares patent. No nasal discharge, no septal abnormalities noted. Tympanic membranes are normal and external auditory canals are clear. Oropharynx with no redness, swelling, or masses, exudates, or evidence of obstruction, uvula midline. Mucous membranes moist. Neck: Trachea midline, no thyromegaly or masses palpated, and no cervical lymphadenopathy. Supple, full range of motion without nuchal rigidity, or vertebral point tenderness. No Meningismus. Chest/axilla: Normal chest wall appearance and motion. Nontender with no deformity. No lesions are appreciated. Cardiovascular: Regular rate and rhythm with a normal S1 and S2. No gallops, murmurs, or rubs. Normal PMI, no JVD. No pulse deficits. Back: No spinal tenderness. No costovertebral tenderness. Full range of motion. 22:40 Respiratory: Respirations: tachypnea, that is mild, Breath sounds: are clear throughout. 22:40 Abdomen/GI: Inspection: abdomen appears normal, Bowel sounds: normal, in all quadrants, Palpation: soft, in all quadrants, mild abdominal tenderness, in the right upper quadrant and right lower quadrant. 22:40 Neuro: Orientation: is normal, Mentation: is normal, Memory: is normal. Vital Signs: 22:30 BP 137 / 102; Pulse 124; Resp 22; Temp 98; Pulse Ox 100% on R/A; Weight 58.97 kg; ak1 Height 5 ft. 5 in. (165.10 cm) (R); 23:15 BP 137 / 100; Pulse 103; Resp 20 S; Pulse Ox 99% on R/A; Pain 9/10; jd3 09/ 00:11 BP 119 / 79; Pulse 90; Resp 20 S; Pulse Ox 100% on R/A; Pain 5/10; jd3 01:06 BP 128 / 85; Pulse 90; Resp 18 S; Pulse Ox 100% on R/A; Weight 50 kg (M); Pain 0/10; jd3 13:51 BP 125 / 80; Pulse 70; Resp 16; Temp 98.8; Pulse Ox 100% ; lt1 01:06 Body Mass Index 18.34 (50.00 kg, 165.10 cm) jd3 MDM: 07/13 22:34 Patient medically screened. [facility] 07/14 00:27 Data reviewed: vital signs, nurses notes, lab test result(s). Data interpreted: Pulse [facility] oximetry: on room air is 100 %. Interpretation: normal. Counseling: I had a detailed discussion with the patient and/or guardian regarding: the historical points, exam findings, and any diagnostic results supporting the discharge/admit diagnosis, lab results, the need for further work-up and treatment in the hospital. 07/13 22:35 Order name: Basic Metabolic Panel; Complete Time: 00:26 [facility] 07/13 22:35 Order name: CBC with Diff [facility] 07/13 22:35 Order name: Creatinine for Radiology; Complete Time: 00:18 [facility] 07/13 22:35 Order name: Hepatic Function; Complete Time: 00:26 [facility] 07/13 22:35 Order name: Lipase; Complete Time: 00:26 [facility] 07/13 22:35 Order name: Ketone, Serum; Complete Time: 00:26 [facility] 07/14 00:27 Order name: ABG; Complete Time: 01:15 [facility] 07/14 01:02 Order name: UDS mt 07/14 01:19 Order name: Procalcitonin; Complete Time: 02:48 [facility] 07/14 02:25 Order name: Glucose, Ancillary Testing; Complete Time: 02:48 [facility] 07/14 03:10 Order name: Glucose, Ancillary Testing [facility] 07/14 03:41 Order name: Acetone Level [facility] 07/14 03:48 Order name: CBC Smear Scan [facility] 07/14 04:04 Order name: Basic Metabolic Panel [facility] 07/13 22:35 Order name: IV Saline Lock; Complete Time: 23:11 [facility] 07/13 22:35 Order name: Labs collected and sent; Complete Time: 23:43 [facility] 07/13 22:35 Order name: Urine Dipstick-Ancillary (obtain specimen); Complete Time: 04:25 [facility] 07/14 04:11 Order name: Glucose, Ancillary Testing ED[facility] 07/14 04:23 Order name: Urine Dipstick--Ancillary (enter results) mw2 07/14 04:37 Order name: Urine Dipstick-Ancillary ED[facility] 07/14 06:09 Order name: Basic Metabolic Panel ED[facility] 07/14 06:37 Order name: Acetone Level ED[facility] 07/14 10:23 Order name: Basic Metabolic Panel EDMS 07/14 11:01 Order name: Acetone Level EDMS Administered Medications: 07/13 22:40 Drug: NS 0.9% 1000 ml Route: IV; Rate: 1000 ml; Site: left antecubital; ca1 07/14 00:34 Follow up: Response: No adverse reaction; IV Status: Completed infusion; IV Intake: jd3 1000ml 07/13 22:55 Drug: Zofran 4 mg Route: IVP; Site: left antecubital; ca1 23:55 Follow up: Response: No adverse reaction jd3 23:35 Drug: fentaNYL (PF) 50 mcg Route: IVP; Site: right wrist; jd3 07/14 00:33 Follow up: Response: No adverse reaction; RASS: Alert and Calm (0) jd3 07/13 23:48 Drug: NS 0.9% 1000 ml Route: IV; Rate: 1000 ml; Site: left antecubital; jd3 07/14 00:34 Follow up: Response: No adverse reaction; IV Status: Completed infusion; IV Intake: jd3 1000ml 01:01 Drug: Insulin Drip - (Insulin Regular Human 100 units, NS 0.9% 100 ml) {Co-Signature: avery zayas1 (Mine Lopez).} Route: IV; Rate: calculated rate; Site: left antecubital; 01:25 Follow up: Response: No adverse reaction; IV Status: Infusion continued upon admission jd3 Point of Care Testing: Blood Glucose: 07/13 22:31 Blood Glucose: 355 mg/dL; ak1 Ranges: Critical Glucose Levels:Adult <50 mg/dl or >400 mg/dl <40 mg/dl or >180 mg/dl Disposition: 07/15 06:42 Co-signature as Attending Physician, Roberto Gonzalez MD I agree with the assessment and tw4 plan of care. Disposition: 07/14/19 00:27 Hospitalization ordered by Augusto Velez for Inpatient Admission. Preliminary diagnosis is Type 1 diabetes mellitus with ketoacidosis without coma. - Bed requested for Telemetry/MedSurg (Inpatient). - Status is Inpatient Admission. la1 - Condition is Stable. - Problem is new. - Symptoms have improved. UTI on Admission? No Signatures: Dispatcher [employer] EDMS Elaina Felix Sameera Cormier, RN DAVID Mauro Beavers, OSORIO AC jr8 Tariq Duggan RN RN la1 Latoya Dumas RN DAVID ak1 Will Davis RN RN jd3 Roberto Gonzalez MD MD tw4 Margarita Holloway RN DAVID ca1 Mine Lopez 1 Corrections: (The following items were deleted from the chart) 07/14 01:05 00:27 Hospitalization Ordered by Augusto Velez DO for Inpatient Admission. Preliminary mw diagnosis is Type 1 diabetes mellitus with ketoacidosis without coma. Bed requested for Intensive Care Unit. Status is Inpatient Admission. Condition is Stable. Problem is new. Symptoms have improved. UTI on Admission? No. jr8 06:00 01:05 07/14/2019 00:27 Hospitalization Ordered by Augusto Velez DO for Inpatient mw Admission. Preliminary diagnosis is Type 1 diabetes mellitus with ketoacidosis without coma. Bed requested for [facility] ER HOLD. Status is Inpatient Admission. Condition is Stable. Problem is new. Symptoms have improved. UTI on Admission? No. mw 14:35 06:00 07/14/2019 00:27 Hospitalization Ordered by Augusto Velez DO for Inpatient bd Admission. Preliminary diagnosis is Type 1 diabetes mellitus with ketoacidosis without coma. Bed requested for Intensive Care Unit. Status is Inpatient Admission. Condition is Stable. Problem is new. Symptoms have improved. UTI on Admission? No. mw 15:19 14:35 07/14/2019 00:27 Hospitalization Ordered by Augusto Velez DO for Inpatient la1 Admission. Preliminary diagnosis is Type 1 diabetes mellitus with ketoacidosis without coma. Bed requested for Telemetry/MedSurg (Inpatient). Status is Inpatient Admission. Condition is Stable. Problem is new. Symptoms have improved. UTI on Admission? No. bd
[2019-07-14] MEDS ORDERED: INSULIN -REGULAR HUMAN 50 UNIT/0.5 ML ML ONE (00:49)
[2019-07-14] MEDS ORDERED: NA CHLORIDE 0.9% 100 ML IV ONE (00:49)
[2019-07-14 00:50] LABS: Arterial Blood Carboxyhemoglob 1.2 % (0-1.5); Blood Gas Oxyhemoglobin 94.2 % (94-97); Blood O2 Saturation 96.2 % (92-98.5)
--- NOTE | 2019-07-14 01:33 | P.HP ---
Certification for Inpatient Patient admitted to: Inpatient With expected LOS: >2 Midnights Patient will require the following post-hospital care: None Practitioner: I am a practitioner with admitting privileges, knowledge of patient current condition, hospital course, and medical plan of care. Services: Services provided to patient in accordance with Admission requirements found in Title 42 Section 412.3 of the Code of Federal Regulations Patient History Date of Service: 07/14/19 Primary Care Provider: None Reason for admission: Nausea, vomiting, elevated blood sugar History of Present Illness: 23-year-old male with diabetes type 1 presented to the emergency room with increased nausea, vomiting and elevated blood sugar. Patient reports that he ran out of insulin 70/30 last Saturday. Patient takes insulin 70/30 50 units twice daily. He tried to get insulin at the pharmacy able was not able to. He tried to by some insulin from a friend. He was not successful. Since that time he he has been having increased nausea, vomiting. Blood sugars elevated. Patient with history of DKA in the past. Patient given the ER for further evaluation. In the ER patient was found to be in DKA. Blood sugar 448. Blood gases showed a pH is 7.23 with a P CO2 of 15 and a PO2 of 100. Bicarb was 6.3. Anion gap 25. White count 9.6. Hemoglobin 19. Sodium 131, potassium 4.1, BUN of 23, creatinine 1.51 with a GFR 56. Total bili Morales unremarkable. Lipase unremarkable. Acetone positive. Patient admitted to ICU for DKA treatment. When I saw the patient ER, he appeared comfortable. Mild nausea noted. Insulin drip and IV fluids to be initiated. Patient still smokes regularly. He admits not using any drugs recently. Allergies No Known Drug Allergies Allergy (Verified 11/22/17 21:09) Unknown Home medications list reviewed: Yes Home Medications: Insulin Aspart [Novolog] 10 unit SQ DAILY 10/10/18 Insulin Detemir [Levemir] 50 unit SQ BIDAC 10/10/18 - Past Medical/Surgical History Diabetic: Yes -: Diabetes mellitus type 1 -: Tobacco abuse -: Cocaine abuse -: GERD -: THC abuse -: Noncompliance -: Cholecystectomy Psychosocial/ Personal History: The patient is single. He has 3 children. He works at [employer] - Family History Father -: Hypertension, Diabetes - Social History Smoking Status: Heavy Tobacco smoker (>10 cigarettes/day) Counseled patient to stop smoking for: less than 10 minutes Smoking therapy provided: Yes Patient receptive to therapy: Yes Alcohol use: Yes CD- Drugs: No Caffeine use: Yes Place of Residence: Home Review of Systems General: Weakness, Malaise, As per HPI Eyes: Unremarkable ENT: Unremarkable Respiratory: Unremarkable Cardiovascular: Unremarkable Gastrointestinal: Nausea, Vomiting, As per HPI Genitourinary: Unremarkable Musculoskeletal: Unremarkable Integumentary: Unremarkable Neurological: Unremarkable Lymphatics: Unremarkable Physical Examination - Physical Exam General: Alert, In no apparent distress, Oriented x3, Cooperative HEENT: Atraumatic, Normocephalic, PERRLA, Other (Dry mucous membranes) Neck: Supple, No Thyromegaly Respiratory: Clear to auscultation bilaterally, Normal air movement Cardiovascular: Normal pulses, Regular rate/rhythm Gastrointestinal: Normal bowel sounds, Soft and benign, Non-distended, No tenderness, No masses, No rebound, No guarding Musculoskeletal: No erythema, No tenderness, No warmth Integumentary: No tenderness/swelling, No erythema, No warmth, No cyanosis Neurological: Normal speech, Normal strength at 5/5 x4 extr, Normal tone, Normal affect - Studies Laboratory Data (last 24 hrs) 07/13/19 23:35: Creatinine 1.51 H 07/13/19 23:35: WBC 19.6 H, Hgb 19.5 H, Hct 58.1 H, Plt Count 363 07/13/19 23:35: Sodium 131 L, Potassium 4.1, BUN 23 H, Creatinine 1.54 H, Glucose 448 H*, Total Bilirubin 1.3 H, AST 9 L, ALT 19, Alkaline Phosphatase 117 , Lipase 35 L Assessment and Plan - Plan Impression: Diabetic ketoacidosis with history of type 1 diabetes Acute renal injury secondary to dehydration and DKA Noncompliance with medication Tobacco abuse Plan: Diabetic ketoacidosis with history of type 1 diabetes: Patient we admitted to ICU. Patient to get IV fluid bolus then continue with maintenance. Will start insulin drip. Will continue to monitor Accu-Cheks and adjust insulin drip accordingly. Will continue to monitor anion gap and lab closely. Once gap has closed and blood sugar improved then will transition to his normal regimen of insulin 70/30 50 units subcu twice daily. Anticipate improvement over the next 12-24 hr. Likely transition to his normal basal insulin later tonight. Continue aggressive IV fluids. Will provide DVT prophylaxis-Lovenox. Will check urine drug screen and pro calcitonin. Daytime hospitalist team will continue his care. Acute renal injury secondary to dehydration and DKA: Continue IV fluid hydration. Will monitor and adjust appropriately. Noncompliance with medication: Compliance with medication addressed in detail. Tobacco abuse: Will provide nicotine patch. Discharge Plan: Home Plan to discharge in: Greater than 2 days - Advance Directives Does patient have a Living Will: No Does patient have a Durable POA for Healthcare: No - Code Status/Comfort Care Code Status Assessed: Yes (Patient is full code.) Time Spent Managing Pts Care (In Minutes): 55
[2019-07-14] MEDS ORDERED: NA CHLORIDE 0.9% 1,000 ML IV ONE (01:43)
[2019-07-14] MEDS ORDERED: INSULIN -REGULAR HUMAN 100 UNIT in NA CHLORIDE 0.9% 100 ML IV SCH (01:43)
[2019-07-14] MEDS ORDERED: NA CHLORIDE 0.9% 1,000 ML ONE (01:57)
[2019-07-14] MEDS ORDERED: NACHLORIDE 0.45% 1,000 ML IV ONE (01:58)
[2019-07-14] MEDS ORDERED: D5 0.45 NS 1,000 ML IV ONE ×2 (01:58→10:42)
[2019-07-14] MEDS: NACHLORIDE 0.45% 1,000 ML IV SCH ×2 (02:00→03:01)
[2019-07-14 02:35] VITALS: BMI 18.3
[2019-07-14] MEDS: D5 0.45 NS 1,000 ML IV SCH ×2 (03:00→10:45)
[2019-07-14] MEDS: FENTANYL CITR 100 MCG/2 ML IV PRN ×3 (03:32→18:04)
[2019-07-14 03:48] LABS: Blood Morphology Comment NOT SEEN (NOT SEEN); Platelet Estimate ADEQ; Urine White Blood Cell Casts OK
[2019-07-14 04:02] LABS: BUN Blood Urea Nitrogen 20 mg/dL (7-18); Glucose Level 222 mg/dL (74-106); Potassium 3.4 mmol/L (3.5-5.1); Sodium Level 142 mmol/L (136-145)
[2019-07-14 04:03] LABS: Bicarbonate 12 mmol/L (21-32)
[2019-07-14 04:36] LABS: Urine Blood NEGATIVE (NEG); Urine Glucose 2+ (NEG); Urine Protein 1+ (NEG); Urine Specific Gravity 1.025 (1.005-1.030); Urine pH 5.5 (5.0-7.0)
[2019-07-14 04:52] LABS: Barbiturates NEGATIVE (NEGATIVE); Benzodiazepines NEGATIVE (NEGATIVE); Cocaine POSITIVE (NEGATIVE); METHAMPHETAM NEGATIVE (NEGATIVE); Methadone NEGATIVE (NEGATIVE); Opiates NEGATIVE (NEGATIVE); Phencyclidine NEGATIVE (NEGATIVE); THC Cannibis POSITIVE (NEGATIVE)
[2019-07-14 06:08] LABS: BUN Blood Urea Nitrogen 19 mg/dL (7-18); Bicarbonate 18 mmol/L (21-32); Glucose Level 185 mg/dL (74-106); Potassium 3.7 mmol/L (3.5-5.1); Sodium Level 144 mmol/L (136-145)
[2019-07-14] MEDS ORDERED: KCL 20 MEQ/100 mL IVPB 20 MEQ/100 ML BAG IV SCH (07:00)
[2019-07-14] MEDS: FAMOTIDINE 20 MG/2 ML VIAL IV SCH ×2 (09:00→20:52)
[2019-07-14] MEDS: NICOTINE 21 MG/PAT TD SCH (09:00)
[2019-07-14] MEDS: ENOXAPARIN 40 MG/0.4 ML SQ SCH (09:00)
[2019-07-14] MEDS ORDERED: ENOXAPARIN 40 MG/0.4 ML SQ ONE (09:29)
[2019-07-14] MEDS ORDERED: NICOTINE 21 MG/PAT TD ONE (09:29)
[2019-07-14] MEDS ORDERED: FAMOTIDINE 20 MG/2 ML VIAL IV ONE (09:30)
[2019-07-14 10:22] LABS: BUN Blood Urea Nitrogen 16 mg/dL (7-18); Bicarbonate 16 mmol/L (21-32); Glucose Level 174 mg/dL (74-106); Potassium 3.9 mmol/L (3.5-5.1); Sodium Level 140 mmol/L (136-145)
[2019-07-14] MEDS ORDERED: D50W 25 GM/50 ML SYRINGE IV PRN ×2 (10:22→14:26)
[2019-07-14] MEDS ORDERED: GLUCAGON 1 MG/VIAL IM PRN ×2 (10:22→14:26)
[2019-07-14] MEDS ORDERED: INSULIN GLARGINE 100 UNITS/ML SQ ONE (10:22)
[2019-07-14] MEDS ORDERED: ONDANSETRON 4 MG/2 ML VIAL ONE (11:16)
[2019-07-14] MEDS ORDERED: FENTANYL CITR 100 MCG/2 ML ONE (11:16)
[2019-07-14] MEDS: ONDANSETRON 4 MG/2 ML VIAL IV PRN ×2 (11:19→18:04)
[2019-07-14 15:31] VITALS: O2SAT 100
[2019-07-14] MEDS: INSULIN -REGULAR HUMAN 50 UNIT/0.5 ML ML SQ SCH ×2 (16:06→20:52)
[2019-07-15] MEDS: FENTANYL CITR 100 MCG/2 ML IV PRN ×2 (00:17→11:32)
[2019-07-15 05:07] LABS: Absolute Lymphocytes (CBC) 3.8 K/uL (0.7-4.9); Basophils % 0.5 % (0-1.3); Hematocrit 39.6 % (39.6-49.0); Lymphocytes % 38.8 % (15.3-44.8); MPV 8.9 fL (7.6-11.3); RBC Red Blood Cell Count 4.49 M/uL (4.33-5.43)
[2019-07-15 05:56] LABS: BUN Blood Urea Nitrogen 9 mg/dL (7-18); Bicarbonate 23 mmol/L (21-32); Glucose Level 202 mg/dL (74-106); Magnesium 1.8 mg/dL (1.8-2.4); Sodium Level 141 mmol/L (136-145)
[2019-07-15 05:58] LABS: Potassium 2.8 mmol/L (3.5-5.1)
[2019-07-15] MEDS ORDERED: NA CHLORIDE 0.9% 250 ML ONE (06:06)
[2019-07-15] MEDS: KCL 20 MEQ/100 mL IVPB 20 MEQ/100 ML BAG IV SCH ×3 (06:18→11:49)
[2019-07-15] MEDS: INSULIN -REGULAR HUMAN 50 UNIT/0.5 ML ML SQ SCH ×2 (09:08→12:28)
[2019-07-15] MEDS: FAMOTIDINE 20 MG/2 ML VIAL IV SCH (09:09)
[2019-07-15] MEDS: NICOTINE 21 MG/PAT TD SCH (09:09)
[2019-07-15] MEDS: ENOXAPARIN 40 MG/0.4 ML SQ SCH (09:09)
[2019-07-15] MEDS ORDERED: NA CHLORIDE 0.9% 500 ML ONE (10:06)
[2019-07-15 12:37] VITALS: BP 122/78; TEMP 97
[2019-07-15] MEDS ORDERED: MAGNESIUM SULFATE 1 gm IVPB 1 GM/100 ML BAG IV ONE (14:00)
--- NOTE | 2019-07-15 14:35 | P.DS ---
Admission Date: 07/14/19 Discharge Date: 07/15/19 Primary Care Provider: None Disposition: ROUTINE DISCHARGE Discharge Condition: GOOD Reason for Admission: Nausea, vomiting, elevated blood sugar - Problems (1) DKA (diabetic ketoacidoses) Onset Date: 10/07/17 Current Visit: No Status: Resolved Qualifiers: Diabetes mellitus type: type 1 Diabetes mellitus complication detail: without coma Qualified Code(s): E10.10 - Type 1 diabetes mellitus with ketoacidosis without coma (2) Diabetes mellitus Onset Date: 11/25/17 Current Visit: No Status: Chronic Qualifiers: Diabetes mellitus type: type 1 Diabetes mellitus complication status: with ketoacidosis Diabetes mellitus complication detail: without coma Qualified Code(s): E10.10 - Type 1 diabetes mellitus with ketoacidosis without coma (3) GERD (gastroesophageal reflux disease) Onset Date: 11/25/17 Current Visit: No Status: Chronic Qualifiers: Esophagitis presence: without esophagitis Qualified Code(s): K21.9 - Gastro -esophageal reflux disease without esophagitis Brief History of Present Illness: 23-year-old male with diabetes type 1 presented to the emergency room with increased nausea, vomiting and elevated blood sugar. Patient reports that he ran out of insulin 70/30 last Saturday. Patient takes insulin 70/30 50 units twice daily. He tried to get insulin at the pharmacy able was not able to. He tried to by some insulin from a friend. He was not successful. Since that time he he has been having increased nausea, vomiting. Blood sugars elevated. Patient with history of DKA in the past. Patient given the ER for further evaluation. In the ER patient was found to be in DKA. Blood sugar 448. Blood gases showed a pH is 7.23 with a P CO2 of 15 and a PO2 of 100. Bicarb was 6.3. Anion gap 25. White count 9.6. Hemoglobin 19. Sodium 131, potassium 4.1, BUN of 23, creatinine 1.51 with a GFR 56. Total bili Morales unremarkable. Lipase unremarkable. Acetone positive. Patient admitted to ICU for DKA treatment. When I saw the patient ER, he appeared comfortable. Mild nausea noted. Insulin drip and IV fluids to be initiated. Patient still smokes regularly. He admits not using any drugs recently. Hospital Course: Overall During the hospital stay pt remained stable. The patient was admitted to the hospital due to DKA. There was no obvious infection on top of this problem. This was potentially secondary to non- compliance with his medication. He was treated with aggressive IV fluids and Insulin drip per DKA protocol. Anion Gap at admission was 36, he had electrolyte disturbance and acute renal Injury. Gradually, the patient improved his sympotms, as well as his metabolic status and renal function. Anion gap is closed. At this point the patient is clinically and hemodynamically stable to be discharged. Highly encourage to establish a PCP. He will be discharge in stable condition. Vital Signs/Physical Exam: Temp Pulse Resp BP Pulse Ox 97 F 102 H 20 122/78 100 07/15/19 12:00 07/15/19 12:00 07/15/19 12:00 07/15/19 12:00 07/15/19 12:00 Laboratory Data at Discharge: WBC 9.9 K/uL (4.3-10.9) D 07/15/19 04:28 Hgb 14.0 g/dL (13.6-17.9) D 07/15/19 04:28 Hct 39.6 % (39.6-49.0) D 07/15/19 04:28 Plt Count 219 K/uL (152-406) D 07/15/19 04:28 Sodium 141 mmol/L (136-145) 07/15/19 04:28 Potassium 2.8 mmol/L (3.5-5.1) L* 07/15/19 04:28 BUN 9 mg/dL (7-18) 07/15/19 04:28 Creatinine 0.74 mg/dL (0.55-1.3) 07/15/19 04:28 Glucose 202 mg/dL (74-106) H 07/15/19 04:28 Magnesium 1.8 mg/dL (1.8-2.4) 07/15/19 04:28 Total Bilirubin 1.3 mg/dL (0.2-1.0) H 07/13/19 23:35 AST 9 U/L (15-37) L 07/13/19 23:35 ALT 19 U/L (12-78) 07/13/19 23:35 Alkaline Phosphatase 117 U/L (45-117) 07/13/19 23:35 Lipase 35 U/L (73-393) L 07/13/19 23:35 Home Medications: Insulin Aspart [Novolog] 10 unit SQ DAILY 10/10/18 Insulin Detemir [Levemir] 50 unit SQ BIDAC 10/10/18 Diet: Regular Activity: Ad miguelito
== END 2019-07-15 15:52 | disposition home or self-care (01) | DRG 638 ==
LOC: ER 22:17 → ERHOLD 07-14 01:44 → 2ND 07-14 15:03
PROVIDERS: ADMIT Family Medicine; ATTEND Family Medicine
DX: E10.10 Type 1 diabetes mellitus with ketoacidosis without coma (principal); N17.9 Acute kidney failure, unspecified; K21.9 Gastro-esophageal reflux disease without esophagitis; F17.210 Nicotine dependence, cigarettes, uncomplicated
CPT/HCPCS: 36415; 80048; 80076; 80307; 81003; 82010; 82805; 82962; 83690; 83735; 84132; 84145; 85025; 96361; 96365; 96375; 99285; J1650; J2405; J3010; J7030

== ENCOUNTER 2019-08-17 23:28 | Inpatient (IN) | payer SELFPAY ==
[2019-08-18] MEDS ORDERED: NA CHLORIDE 0.9% 3,000 ML ONE (00:18)
--- NOTE | 2019-08-18 00:38 | ER ---
Nurse's Notes [facility] Name: Tano Shelley Jr Age: 23 yrs Sex: Male : 1995 Arrival Date: 08/17/2019 Time: 23:29 Bed 5 Private MD: Diagnosis: Essential (primary) hypertension;Type 1 diabetes mellitus with ketoacidosis;Hyperkalemia;Elevated white blood cell count;Bandemia Presentation: 08/17 23:56 Presenting complaint: Patient states: PT with HX of Diabetes Insulin Dependent, last dose he said he had insulin was 2 days ago, now C/O weakness and back pain. Transition of care: patient was not received from another setting of care. Onset of symptoms was August 17, 2019. Risk Assessment: Do you want to hurt yourself or someone else? Patient reports no desire to harm self or others. Initial Sepsis Screen: Does the patient meet any 2 criteria? No. Patient's initial sepsis screen is negative. Does the patient have a suspected source of infection? No. Patient's initial sepsis screen is negative. Care prior to arrival: None. 23:56 Method Of Arrival: Wheelchair 23:56 Acuity: SELIN 3 Triage Assessment: 08/18 00:07 Respiratory: Reports shortness of breath Onset: The symptoms/episode began/occurred suddenly, the patient has mild shortness of breath. Historical: - Allergies: 00:06 No Known Allergies; - Home Meds: 00:06 Novolin 70/30 [place] Sub-Q [Active]; - PMHx: 00:06 Diabetes - IDDM; - PSHx: 00:06 None; - Immunization history:: Adult Immunizations unknown. - Social history:: Smoking status: Patient/guardian denies using tobacco, Smoking status: Patient uses tobacco products. - Ebola Screening: : Patient negative for fever greater than or equal to 101.5 degrees Fahrenheit, and additional compatible Ebola Virus Disease symptoms Patient denies exposure to infectious person. Screenin/21 23:59 Abuse screen: Denies threats or abuse. Denies injuries from another. Nutritional screening: No deficits noted. Tuberculosis screening: No symptoms or risk factors identified. Fall Risk None identified. Assessment: 08/18 00:07 General: Appears uncomfortable, Behavior is calm, cooperative, appropriate for age. wh Pain: Complains of pain in back Pain does not radiate. Pain currently is 5 out of 10 on a pain scale. Quality of pain is described as aching, Pain began 1 day ago. Neuro: Level of Consciousness is awake, alert, obeys commands, Oriented to person, place, time, situation, Appropriate for age. Cardiovascular: Heart tones S1 S2 Rhythm is regular. Respiratory: Airway is patent Respiratory effort is even, unlabored, Respiratory pattern is regular, symmetrical. GI: Abdomen is flat, non-distended. : No signs and/or symptoms were reported regarding the genitourinary system. EENT: No signs and/or symptoms were reported regarding the EENT system. Derm: Skin is intact, is healthy with good turgor, Skin is pink, warm \T\ dry. normal. Musculoskeletal: Circulation, motion, and sensation intact. 00:08 Respiratory: Breath sounds are clear bilaterally. 01:00 Reassessment: Patient appears in no apparent distress at this time. No changes from previously documented assessment. Patient and/or family updated on plan of care and expected duration. Pain level reassessed. Patient is alert, oriented x 3, equal unlabored respirations, skin warm/dry/pink. 02:09 Reassessment: Patient appears in no apparent distress at this time. No changes from previously documented assessment. Patient and/or family updated on plan of care and expected duration. Pain level reassessed. Patient is alert, oriented x 3, equal unlabored respirations, skin warm/dry/pink. Vital Signs: 00:08 BP 146 / 88; Pulse 103; Resp 18; Temp 97.1(TE); Pulse Ox 100% ; 02:12 BP 132 / 78; Pulse 106; Resp 18; Pulse Ox 100% on R/A; ED Course: 08/17 23:29 Patient arrived in ED. es 23:56 Elver Beltran is Primary Nurse. 23:57 Triage completed. 23:59 Adonis Ramos MD is Attending Physician. [facility] 08/18 00:01 Glucometer Results: >500, HI. ia 00:01 Missed attempt(s): 20 gauge in left antecubital area. ia 00:08 Arm band placed on right wrist. 00:08 Patient has correct armband on for positive identification. Placed in gown. Bed in low wh position. Call light in reach. Side rails up X 1. Pulse ox on. NIBP on. 00:25 Inserted saline lock: 20 gauge in left antecubital area, using aseptic technique. Blood wh collected. 00:30 Inserted saline lock: 18 gauge in right EJ, using aseptic technique. ,using aseptic technique. by Purvi CARDENAS. 00:37 Talha Faulkner MD is Hospitalizing Provider. keturah 00:56 XRAY Chest (1 view) In Process Unspecified. EDMS 02:08 Glucometer Recheck: >500, HI. mt 02:23 No provider procedures requiring assistance completed. Patient admitted, IV remains in place. Administered Medications: 00:30 Drug: NS 0.9% 1000 ml Route: IV; Rate: 1 bolus; Site: left antecubital; 02:13 Follow up: Response: No adverse reaction; IV Status: Completed infusion 00:30 Drug: NS 0.9% 1000 ml Route: IV; Rate: 1 bolus; Site: left antecubital; 02:13 Follow up: Response: No adverse reaction; IV Status: Completed infusion 00:40 Drug: Rocephin 1 grams Route: IV; Rate: per protocol; Site: left antecubital; 02:14 Follow up: Response: No adverse reaction; IV Status: Completed infusion 00:45 Drug: NS 0.9% 1000 ml Route: IV; Rate: 1 bolus; Site: right jugular; 02:13 Follow up: Response: No adverse reaction; IV Status: Completed infusion 00:54 Drug: Zofran 4 mg {Note: right EJ.} Route: IVP; Site: Other; ea 02:15 Follow up: Response: No adverse reaction; Nausea is decreased 01:06 Drug: Pepcid 20 mg Route: IVP; Site: left antecubital; 02:14 Follow up: Response: No adverse reaction 01:07 Drug: Insulin Drip - (Insulin Regular Human 100 units, NS 0.9% 100 ml) {Co-Signature: aa1 (Minnie Summers RN).} Route: IV; Rate: 5 units/hr; Site: left antecubital; 02:24 Follow up: Response: No adverse reaction; IV Status: Infusion continued upon admission 01:28 Drug: NS 0.9% 1000 ml Route: IV; Rate: 125 ml/hr; Site: left antecubital; 02:14 Follow up: Response: No adverse reaction; IV Status: Completed infusion Point of Care Testing: Blood Glucose: 00:10 Blood Glucose: High (>450 mg/dL); Ranges: Intake: 02:11 PO: 120ml; Total: 120ml. Output: 02:11 Urine: 1000ml; Total: 1000ml. Outcome: 00:38 Decision to Hospitalize by Provider. keturah 02:23 Admitted to ICU accompanied by nurse, accompanied by tech, via stretcher, room 7, on monitor, with chart, Report called to Majo Starkey RN 02:23 Condition: stable 02:23 Instructed on the need for admit. 03:03 Patient left the ED. sukhdev Signatures: Dispatcher [employer] Adonis Nowak MD MD cha Salyer, Carline Orantes mt, Elena, RN Elver Riddle ea Minnie Summers RN aa1
--- NOTE | 2019-08-18 00:39 | EDPHYS ---
Physician Documentation [facility] Name: Tano Shelley Jr Age: 23 yrs Sex: Male : 1995 Arrival Date: 08/17/2019 Time: 23:29 Bed 5 Private MD: KAUSHIK Physician Adonis Ramos HPI: 08/18 00:33 This 23 yrs old Male presents to ER via Wheelchair with complaints of High keturah Blood Pressure, Breathing Difficulty. 00:33 The patient has elevated blood pressure and discovered this at home. Onset: The keturah symptoms/episode began/occurred 5 day(s) ago. Modifying factors: The symptoms are aggravated by activity, The symptoms are alleviated by remaining still. Historical: - Allergies: 00:06 No Known Allergies; wh - Home Meds: 00:06 Novolin 70/30 [place] Sub-Q [Active]; - PMHx: 00:06 Diabetes - IDDM; - PSHx: 00:06 None; - Immunization history:: Adult Immunizations unknown. - Social history:: Smoking status: Patient/guardian denies using tobacco, Smoking status: Patient uses tobacco products. - Ebola Screening: : Patient negative for fever greater than or equal to 101.5 degrees Fahrenheit, and additional compatible Ebola Virus Disease symptoms Patient denies exposure to infectious person. ROS: 00:34 Constitutional: Negative for fever, chills, and weight loss, Eyes: Negative for injury, keturah pain, redness, and discharge, ENT: Negative for injury, pain, and discharge, Neck: Negative for injury, pain, and swelling, Abdomen/GI: Negative for abdominal pain, nausea, vomiting, diarrhea, and constipation, Back: Negative for injury and pain, : Negative for injury, bleeding, discharge, and swelling, MS/Extremity: Negative for injury and deformity, Skin: Negative for injury, rash, and discoloration, Psych: Negative for depression, anxiety, suicide ideation, homicidal ideation, and hallucinations, Allergy/Immunology: Negative for hives, rash, and allergies, Endocrine: Negative for neck swelling, polydipsia, polyuria, polyphagia, and marked weight changes, Hematologic/Lymphatic: Negative for swollen nodes, abnormal bleeding, and unusual bruising. 00:34 Cardiovascular: Positive for chest pain. 00:34 Respiratory: Positive for cough, shortness of breath. 00:34 Abdomen/GI: Positive for nausea and vomiting. 00:34 Neuro: Positive for altered mental status, weakness. Exam: 00:34 Constitutional: This is a well developed, well nourished patient who is awake, alert, keturah and in no acute distress. Head/Face: Normocephalic, atraumatic. Eyes: Pupils equal round and reactive to light, extra-ocular motions intact. Lids and lashes normal. Conjunctiva and sclera are non-icteric and not injected. Cornea within normal limits. Periorbital areas with no swelling, redness, or edema. ENT: Nares patent. No nasal discharge, no septal abnormalities noted. Tympanic membranes are normal and external auditory canals are clear. Oropharynx with no redness, swelling, or masses, exudates, or evidence of obstruction, uvula midline. Mucous membranes moist. Neck: Trachea midline, no thyromegaly or masses palpated, and no cervical lymphadenopathy. Supple, full range of motion without nuchal rigidity, or vertebral point tenderness. No Meningismus. Chest/axilla: Normal chest wall appearance and motion. Nontender with no deformity. No lesions are appreciated. Respiratory: Lungs have equal breath sounds bilaterally, clear to auscultation and percussion. No rales, rhonchi or wheezes noted. No increased work of breathing, no retractions or nasal flaring. Abdomen/GI: Soft, non-tender, with normal bowel sounds. No distension or tympany. No guarding or rebound. No evidence of tenderness throughout. Back: No spinal tenderness. No costovertebral tenderness. Full range of motion. Male : Normal genitalia with no discharge or lesions. Skin: Warm, dry with normal turgor. Normal color with no rashes, no lesions, and no evidence of cellulitis. Neuro: Awake and alert, GCS 15, oriented to person, place, time, and situation. Cranial nerves II-XII grossly intact. Motor strength 5/5 in all extremities. Sensory grossly intact. Cerebellar exam normal. Normal gait. Psych: Awake, alert, with orientation to person, place and time. Behavior, mood, and affect are within normal limits. 00:34 Cardiovascular: Rate: tachycardic, Rhythm: regular, Pulses: Pulses are 4+ in bilateral radial, brachial, femoral, popliteal, posterior tibial and and dorsalis pedis arteries.. Heart sounds: normal, Edema: is not appreciated, JVD: is not appreciated. Vital Signs: 00:08 BP 146 / 88; Pulse 103; Resp 18; Temp 97.1(TE); Pulse Ox 100% ; wh 02:12 BP 132 / 78; Pulse 106; Resp 18; Pulse Ox 100% on R/A; wh Procedures: 00:39 Peripheral line: by aseptic technique a peripheral line was placed in the right [facility] external jugular vein. MDM: 08/17 23:[address] [facility] 08/18 00:34 Data reviewed: vital signs, nurses notes, lab test result(s), EKG, radiologic studies, [facility] CT scan, plain films. 08/17 23:53 Order name: Basic Metabolic Panel; Complete Time: 02:42 mt 08/17 23:53 Order name: CBC with Diff; Complete Time: 02:42 nj 08/17 23:53 Order name: Creatinine for Radiology; Complete Time: 02:42 nj 08/17 23:53 Order name: Hepatic Function; Complete Time: 02:42 nj 08/17 23:53 Order name: Lipase; Complete Time: 02:42 nj 08/18 00:32 Order name: PT-INR [facility] 08/18 00:32 Order name: Blood Culture Adult (2) [facility] 08/18 00:32 Order name: ETOH Level; Complete Time: 02:42 [facility] 08/18 00:32 Order name: Ptt, Activated [facility] 08/18 00:32 Order name: Salicylate [facility] 08/18 00:32 Order name: Urine Drug Screen [facility] 08/18 00:32 Order name: Procalcitonin; Complete Time: 02:42 [facility] 08/18 00:32 Order name: Lactate; Complete Time: 02:42 [facility] 08/18 00:36 Order name: ABG; Complete Time: 02:42 [facility] 08/18 01:06 Order name: Troponin (Emerg Dept Use Only); Complete Time: 02:42 EDMS 08/18 01:06 Order name: NT PRO-BNP; Complete Time: 02:42 EDVA 08/18 01:06 Order name: Acetaminophen Level; Complete Time: 02:42 EDMS 08/18 01:06 Order name: Magnesium; Complete Time: 02:42 EDMS 08/18 01:10 Order name: CBC with Automated Diff [facility] 08/18 01:10 Order name: Acetone Level EDMS 08/18 01:10 Order name: Acetone Level [facility] 08/18 01:10 Order name: Acetone Level [facility] 08/18 01:10 Order name: Basic Metabolic Panel [facility] 08/18 01:10 Order name: Basic Metabolic Panel [facility] 08/18 01:10 Order name: Basic Metabolic Panel [facility] 08/18 01:10 Order name: Lipid Profile [facility] 08/17 23:53 Order name: IV Saline Lock; Complete Time: 00:09 nj 08/17 23:53 Order name: Labs collected and sent; Complete Time: 00:00 nj 08/18 00:32 Order name: XRAY Chest ([address] view) [facility] 08/18 00:32 Order name: EKG; Complete Time: 00:34 [facility] 08/18 00:32 Order name: Cardiac monitoring; Complete Time: 01:06 [facility] 08/18 00:32 Order name: EKG - Nurse/Tech; Complete Time: 01:06 [facility] 08/18 00:32 Order name: O2 Per Protocol; Complete Time: 01:06 [facility] 08/18 00:32 Order name: O2 Sat Monitoring; Complete Time: 01:06 [facility] 08/18 00:32 Order name: Urine Dipstick-Ancillary (obtain specimen); Complete Time: 02:05 [facility] 08/18 01:10 Order name: CONS Pharmacy Consult [facility] 08/18 01:10 Order name: NPO [facility] 08/18 01:10 Order name: Lipid Profile [facility] 08/18 01:10 Order name: Magnesium [facility] 08/18 01:10 Order name: Magnesium [facility] 08/18 01:10 Order name: Magnesium [facility] 08/18 01:10 Order name: Phosphorus [facility] 08/18 01:10 Order name: Phosphorus [facility] 08/18 01:10 Order name: Phosphorus [facility] 08/18 02:05 Order name: Urine Dipstick--Ancillary (enter results) cm6 08/18 02:36 Order name: Manual Differential; Complete Time: 02:42 [facility] 08/18 02:44 Order name: Chem 7 [facility] Administered Medications: 00:30 Drug: NS 0.9% 1000 ml Route: IV; Rate: 1 bolus; Site: left antecubital; 02:13 Follow up: Response: No adverse reaction; IV Status: Completed infusion 00:30 Drug: NS 0.9% 1000 ml Route: IV; Rate: 1 bolus; Site: left antecubital; 02:13 Follow up: Response: No adverse reaction; IV Status: Completed infusion 00:40 Drug: Rocephin 1 grams Route: IV; Rate: per protocol; Site: left antecubital; 02:14 Follow up: Response: No adverse reaction; IV Status: Completed infusion 00:45 Drug: NS 0.9% 1000 ml Route: IV; Rate: 1 bolus; Site: right jugular; 02:13 Follow up: Response: No adverse reaction; IV Status: Completed infusion 00:54 Drug: Zofran 4 mg {Note: right EJ.} Route: IVP; Site: Other; 02:15 Follow up: Response: No adverse reaction; Nausea is decreased 01:06 Drug: Pepcid 20 mg Route: IVP; Site: left antecubital; 02:14 Follow up: Response: No adverse reaction 01:07 Drug: Insulin Drip - (Insulin Regular Human 100 units, NS 0.9% 100 ml) {Co-Signature: aa1 (Minnie Summers RN).} Route: IV; Rate: 5 units/hr; Site: left antecubital; 02:24 Follow up: Response: No adverse reaction; IV Status: Infusion continued upon admission 01:28 Drug: NS 0.9% 1000 ml Route: IV; Rate: 125 ml/hr; Site: left antecubital; 02:14 Follow up: Response: No adverse reaction; IV Status: Completed infusion Point of Care Testing: Blood Glucose: 00:10 Blood Glucose: High (>450 mg/dL); Ranges: Critical Glucose Levels:Adult <50 mg/dl or >400 mg/dl <40 mg/dl or >180 mg/dl Disposition: 08/18/19 00:38 Hospitalization ordered by Talha Faulkner for Inpatient Admission. Preliminary diagnosis are Essential (primary) hypertension, Type 1 diabetes mellitus with ketoacidosis, Hyperkalemia, Elevated white blood cell count, Bandemia. - Bed requested for Intensive Care Unit. - Status is Inpatient Admission. ea - Condition is Serious. - Problem is new. - Symptoms have improved. UTI on Admission? No Signatures: Dispatcher [employer] Adonis Nowak MD MD cha Garcia, Cindy RN DAVID Kaplan, Sanjuana Hernandez mt, RN RN ea Habalo, Winsy Minnie Summers RN aa1 Corrections: (The following items were deleted from the chart) 01:06 00:33 MAGNESIUM+C.LAB.BRZ ordered. EDMS EDMS 01:06 00:33 PROBNP+C.LAB.BRZ ordered. EDMS EDMS 01:06 00:33 TROPONIN (EMERG DEPT USE ONLY)+C.LAB.BRZ ordered. EDMS EDMS 01:06 00:33 ACETAMINOPHEN+C.LAB.BRZ ordered. EDMS EDMS 01:50 00:38 Hospitalization Ordered by Talha Faulkner MD for Inpatient Admission. Preliminary cg diagnosis is Essential (primary) hypertension; Type 1 diabetes mellitus with ketoacidosis. Bed requested for Intensive Care Unit. Status is Inpatient Admission. Condition is Serious. Problem is new. Symptoms have improved. UTI on Admission? No. keturah 02:43 01:50 08/18/2019 00:38 Hospitalization Ordered by Talha Faulkner MD for Inpatient keturah Admission. Preliminary diagnosis is Essential (primary) hypertension; Type 1 diabetes mellitus with ketoacidosis. Bed requested for Intensive Care Unit. Status is Inpatient Admission. Condition is Serious. Problem is new. Symptoms have improved. UTI on Admission? No. cg 03:03 02:43 08/18/2019 00:38 Hospitalization Ordered by Talha Faulkner MD for Inpatient ea Admission. Preliminary diagnosis is Essential (primary) hypertension; Type 1 diabetes mellitus with ketoacidosis; Hyperkalemia; Elevated white blood cell count; Bandemia. Bed requested for Intensive Care Unit. Status is Inpatient Admission. Condition is Serious. Problem is new. Symptoms have improved. UTI on Admission? No. keturah
[2019-08-18] MEDS ORDERED: ONDANSETRON 4 MG/2 ML VIAL ONE (00:51)
[2019-08-18] MEDS ORDERED: NA CHLORIDE 0.9% 1,000 ML ONE (00:57)
[2019-08-18] MEDS ORDERED: CEFTRIAXONE/SWI 1gm 1 GM/10 ML SYR ONE (00:57)
[2019-08-18] MEDS ORDERED: NA CHLORIDE 0.9% 100 ML IV ONE (00:57)
[2019-08-18] MEDS ORDERED: FAMOTIDINE 20 MG/2 ML VIAL IV ONE (00:57)
[2019-08-18] MEDS ORDERED: INSULIN -REGULAR HUMAN 50 UNIT/0.5 ML ML ONE (00:57)
[2019-08-18 01:04] LABS: Arterial Blood Carboxyhemoglob 0.9 % (0-1.5); Blood Gas Oxyhemoglobin 91.4 % (94-97); Blood O2 Saturation 93.3 % (92-98.5)
[2019-08-18] MEDS ORDERED: GLUCAGON 1 MG/VIAL IM PRN (01:09)
[2019-08-18] MEDS ORDERED: D50W 25 GM/50 ML SYRINGE IV PRN (01:09)
[2019-08-18] MEDS ORDERED: INSULIN -REGULAR HUMAN 50 UNIT/0.5 ML ML IV SCH ×2 (01:15→03:45)
[2019-08-18 01:19] LABS: Absolute Lymphocytes (CBC) 2.6 K/uL (0.7-4.9); Basophils % 0.4 % (0-1.3); Hematocrit 53.8 % (39.6-49.0); MPV 10.1 fL (7.6-11.3)
[2019-08-18 01:52] LABS: ALT/SGPT 28 U/L (12-78); AST/SGOT 23 U/L (15-37); Albumin 4.9 g/dL (3.4-5.0); Alkaline Phosphatase 163 U/L (45-117); BUN Blood Urea Nitrogen 32 mg/dL (7-18); Bilirubin Direct 0.1 mg/dL (0-0.2); Bilirubin Total 0.6 mg/dL (0.2-1.0); Lipase 50 U/L (73-393); Magnesium 2.7 mg/dL (1.8-2.4); NT PRO-BNP 29 pg/mL (<125); Potassium 5.4 mmol/L (3.5-5.1); Protein, Total 9.1 g/dL (6.4-8.2); Sodium Level 135 mmol/L (136-145); Troponin (Emerg Dept Use Only) < 0.02 ng/mL (0.0-0.045)
[2019-08-18 01:53] LABS: Bicarbonate 4 mmol/L (21-32); Glucose Level 677 mg/dL (74-106)
[2019-08-18] MEDS ORDERED: D5.45NS W/KCL 20MEQ 1,000 ML IV SCH (02:00)
[2019-08-18 02:36] LABS: Blood Morphology Comment NOTED (NOT SEEN); Burr Cells 4+; Platelet Estimate ADEQ
[2019-08-18 02:58] LABS: Barbiturates NEGATIVE (NEGATIVE); Benzodiazepines NEGATIVE (NEGATIVE); Cocaine POSITIVE (NEGATIVE); METHAMPHETAM POSITIVE (NEGATIVE); Methadone NEGATIVE (NEGATIVE); Opiates NEGATIVE (NEGATIVE); Phencyclidine NEGATIVE (NEGATIVE); THC Cannibis NEGATIVE (NEGATIVE)
[2019-08-18 03:16] VITALS: O2SAT 100
[2019-08-18 03:44] LABS: Urine Blood NEGATIVE (NEG); Urine Glucose 2+ (NEG); Urine Protein 1+ (NEG); Urine Specific Gravity 1.025 (1.005-1.030); Urine pH 5.5 (5.0-7.0)
[2019-08-18 04:07] VITALS: BMI 18.3
[2019-08-18 04:31] LABS: Protime INR 0.82
[2019-08-18 04:48] LABS: BUN Blood Urea Nitrogen 24 mg/dL (7-18); Glucose Level 279 mg/dL (74-106); Potassium 5.3 mmol/L (3.5-5.1); Sodium Level 145 mmol/L (136-145)
[2019-08-18 04:49] LABS: Bicarbonate 8 mmol/L (21-32)
[2019-08-18 06:10] LABS: Urine Appearance CLEAR; Urine Bilirubin NEGATIVE (NEG); Urine Blood NEGATIVE (NEG); Urine Color YELLOW; Urine Glucose 3+ (NEG); Urine Protein 1+ (NEG); Urine Urobilinogen 0.2 mg/dL (0.2-1.0); Urine pH 5.5 (5.0-7.0)
[2019-08-18 06:39] LABS: Urine Bacteria <20 /HPF (NONE SEEN); Urine Culture Reflex Order NOT NEEDED; Urine RBC <5 /HPF (NONE SEEN)
[2019-08-18] MEDS: D5W 1,000 ML IV SCH ×2 (07:31→13:53)
[2019-08-18 08:22] LABS: Absolute Lymphocytes (CBC) 4.1 K/uL (0.7-4.9); Basophils % 0.4 % (0-1.3); Hematocrit 45.2 % (39.6-49.0); Lymphocytes % 14.4 % (15.3-44.8); RBC Red Blood Cell Count 4.92 M/uL (4.33-5.43)
--- NOTE | 2019-08-18 08:28 | P.HP ---
Certification for Inpatient Patient admitted to: Inpatient With expected LOS: >2 Midnights Patient will require the following post-hospital care: None Practitioner: I am a practitioner with admitting privileges, knowledge of patient current condition, hospital course, and medical plan of care. Services: Services provided to patient in accordance with Admission requirements found in Title 42 Section 412.3 of the Code of Federal Regulations Patient History Date of Service: 08/18/19 Reason for admission: Diabetic ketoacidosis History of Present Illness: Patient is a 23-year-old gentleman with poorly-controlled diabetes. Patient has had numerous admissions for diabetic ketoacidosis. Patient is not compliant with his insulin regimen. Patient was found have DKA and was admitted to the hospital for further evaluation. Patient was started on IV fluids and insulin drip. Patient will be admitted for further evaluation. Allergies No Known Drug Allergies Allergy (Verified 08/18/19 04:17) Unknown Home Medications: Insulin NPH Hum/Reg Insulin Hm [Novolin 70-30 100 Unit/ml Vial] 50 units SQ QIDP PRN 08/18/19 - Past Medical/Surgical History Diabetic: Yes -: Diabetes mellitus type 1 -: Tobacco abuse -: Cocaine abuse -: GERD -: THC abuse -: Noncompliance -: Cholecystectomy Psychosocial/ Personal History: The patient is single. He has 3 children. He works at [employer] - Family History Father Medical History: Hypertension, Diabetes - Social History Smoking Status: Current every day smoker Alcohol use: Yes CD- Drugs: Yes Caffeine use: Yes Review of Systems 10-point ROS is otherwise unremarkable Physical Examination - Vital Signs Temperature: 98.7 F Blood Pressure: 122/73 Pulse: 103 Respirations: 16 Pulse Ox (%): 100 - Physical Exam General: Alert, In no apparent distress, Oriented x3 HEENT: Atraumatic, PERRLA, Mucous membr. moist/pink, EOMI, Sclerae nonicteric Neck: Supple, 2+ carotid pulse no bruit, No LAD, Without JVD or thyroid abnormality Respiratory: Clear to auscultation bilaterally, Normal air movement Cardiovascular: Regular rate/rhythm, Normal S1 S2, No murmurs Gastrointestinal: Normal bowel sounds, Soft and benign, Non-distended, No tenderness Musculoskeletal: No clubbing, No swelling, No tenderness Integumentary: No rashes Neurological: Normal gait, Normal speech, Normal strength at 5/5 x4 extr, Normal tone, Sensation intact, Cranial nerves 3-12 intact, Normal affect Lymphatics: No axilla or inguinal lymphadenopathy - Studies Laboratory Data (last 24 hrs) 08/18/19 00:30: Magnesium Cancelled 08/18/19 00:30: Creatinine 1.72 H 08/18/19 00:30: WBC 32.6 H*, Hgb 17.3, Hct 53.8 H, Plt Count 453 H 08/18/19 00:30: Sodium 135 L, Potassium 5.4 H, BUN 32 H, Creatinine 1.70 H, Glucose 677 H*, Magnesium 2.7 H D, Total Bilirubin 0.6, AST 23, ALT 28, Alkaline Phosphatase 163 H, Lipase 50 L Assessment & Plan - Problems (Diagnosis) (1) Noncompliance Current Visit: Yes Status: Acute (2) Polysubstance abuse Current Visit: Yes Status: Acute (3) DKA (diabetic ketoacidoses) Onset Date: 10/07/17 Current Visit: No Status: Resolved Qualifiers: - Plan Plan: 1. IV fluids 2. Insulin drip 3. Monitor electrolytes closely 4. Straightening Press Operator regarding compliance 5. Straightening Press Operator regarding polysubstance abuse 6. GI and DVT prophylaxis Discharge Plan: Home Plan to discharge in: Greater than 2 days - Advance Directives Does patient have a Living Will: No Does patient have a Durable POA for Healthcare: No - Code Status/Comfort Care Code Status Assessed: Yes Code Status: Full Code Critical Care: No Time Spent Managing PTS Care (In Minutes): 50
--- NOTE | 2019-08-18 08:29 | RAD REPORT ---
EXAM DESCRIPTION: RAD - Chest Single View - 08/18/2019 12:55 am CLINICAL HISTORY: Cough COMPARISON: September 2018 TECHNIQUE: AP portable chest image was obtained 0047 hours . FINDINGS: Lungs are clear. Heart and vasculature are normal. No measurable pleural effusion and no p neumothorax. No acute bony abnormality seen. No acute aortic findings suspected. IMPRESSION: No acute cardiopulmonary process.
[2019-08-18 08:36] LABS: BUN Blood Urea Nitrogen 18 mg/dL (7-18); Glucose Level 178 mg/dL (74-106); Magnesium 2.4 mg/dL (1.8-2.4); Phosphorus 1.6 mg/dL (2.5-4.9); Potassium 4.2 mmol/L (3.5-5.1); Sodium Level 144 mmol/L (136-145)
[2019-08-18 08:38] LABS: Bicarbonate 10 mmol/L (21-32)
[2019-08-18] MEDS: ENOXAPARIN 40 MG/0.4 ML SQ SCH (09:27)
--- NOTE | 2019-08-18 12:10 | EKG ---
Test Date: 2019-08-18 Test Time: 05:56:49 Pelt Salter: RT MEASUREMENT RESULTS: Intervals: Rate: 101 [place]: 150 QRSD: 86 QT: 358 QTc: 464 [place]: P: 72 [place]: 150 QRS: 106 T: 69 INTERPRETIVE STATEMENTS: Sinus tachycardia Rightward axis Borderline ECG Compared to ECG 10/10/2018 18:42:36 Sinus rhythm no longer present Atrial abnormality no longer present Electronically Signed On 08-18-19 12:08:54 CDT by Daniel Buckner
--- NOTE | 2019-08-18 12:11 | EKG ---
Test Date: 2019-08-18 Test Time: 00:49:25 Fiberglass Roller: [place] MEASUREMENT RESULTS: Intervals: Rate: 110 [place]: 138 QRSD: 92 QT: 338 QTc: 457 [place]: P: 76 WV: 138 QRS: 121 T: 64 INTERPRETIVE STATEMENTS: Sinus tachycardia Right axis deviation Junctional ST depression, probably abnormal Abnormal ECG Compared to ECG 10/10/2018 18:42:36 ST (T wave) deviation now present Sinus rhythm no longer present Atrial abnormality no longer present Electronically Signed On 08-18-19 12:09:02 CDT by Daniel Buckner
[2019-08-18 12:33] LABS: Absolute Lymphocytes (CBC) 3.1 K/uL (0.7-4.9); Basophils % 0.5 % (0-1.3); Hematocrit 42.6 % (39.6-49.0); Lymphocytes % 13.5 % (15.3-44.8); MPV 8.4 fL (7.6-11.3); RBC Red Blood Cell Count 4.68 M/uL (4.33-5.43)
[2019-08-18 12:52] LABS: Albumin 3.4 g/dL (3.4-5.0); Bilirubin Total 0.8 mg/dL (0.2-1.0); Protein, Total 6.6 g/dL (6.4-8.2)
[2019-08-18 14:57] LABS: Toxic Granulation 1+; Urine White Blood Cell Casts OK
[2019-08-18 14:58] LABS: Blood Morphology Comment NOT SEEN (NOT SEEN); Platelet Estimate ADEQ
[2019-08-18 16:21] LABS: Basophils % 0.7 % (0-1.3); Hematocrit 41.1 % (39.6-49.0); Lymphocytes % 10.4 % (15.3-44.8); MPV 8.9 fL (7.6-11.3); RBC Red Blood Cell Count 4.47 M/uL (4.33-5.43)
[2019-08-18] MEDS ORDERED: INSULIN -REGULAR HUMAN 100 UNIT in NA CHLORIDE 0.9% 100 ML IV SCH (16:30)
[2019-08-18 16:44] LABS: Albumin 3.4 g/dL (3.4-5.0); Bilirubin Total 0.9 mg/dL (0.2-1.0); Protein, Total 6.5 g/dL (6.4-8.2)
[2019-08-18] MEDS ORDERED: INFLUENZA VACCINE (for 3y+) 0.5 ML DOSE IMVAC ONE (18:00)
[2019-08-18] MEDS ORDERED: D5W 1,000 ML IV SCH (20:00)
[2019-08-18 20:26] LABS: Absolute Lymphocytes (CBC) 2.2 K/uL (0.7-4.9); Basophils % 0.8 % (0-1.3); MPV 8.3 fL (7.6-11.3); RBC Red Blood Cell Count 4.65 M/uL (4.33-5.43)
[2019-08-18 20:43] LABS: Albumin 3.4 g/dL (3.4-5.0); Bilirubin Total 0.7 mg/dL (0.2-1.0); Potassium 3.3 mmol/L (3.5-5.1); Protein, Total 6.4 g/dL (6.4-8.2)
[2019-08-18] MEDS ORDERED: INSULIN 70/30 100 UNITS/ML SQ ONE (21:42)
[2019-08-18] MEDS ORDERED: POTASSIUM CL SA 10 MEQ TAB PO ONE (22:08)
[2019-08-19 05:02] LABS: Absolute Lymphocytes (CBC) 3.1 K/uL (0.7-4.9); Basophils % 0.6 % (0-1.3); Hematocrit 40.2 % (39.6-49.0); Lymphocytes % 24.6 % (15.3-44.8); MPV 8.8 fL (7.6-11.3)
[2019-08-19 05:13] LABS: ALT/SGPT 17 U/L (12-78); AST/SGOT 13 U/L (15-37); Alkaline Phosphatase 86 U/L (45-117); BUN Blood Urea Nitrogen 14 mg/dL (7-18); Bicarbonate 22 mmol/L (21-32); Bilirubin Total 0.5 mg/dL (0.2-1.0); Glucose Level 290 mg/dL (74-106); HDL Cholesterol 52 mg/dL (40-60); LDL Cholesterol, Calculated 42 (<130); Phosphorus 1.2 mg/dL (2.5-4.9); Potassium 3.8 mmol/L (3.5-5.1); Protein, Total 5.8 g/dL (6.4-8.2); Sodium Level 138 mmol/L (136-145)
[2019-08-19] MEDS ORDERED: POTASSIUM PHOS IN 0.9 % NACL 15 MMOL/250 ML BAG IV ONE (05:31)
[2019-08-19] MEDS ORDERED: D50W 25 GM/50 ML SYRINGE IV PRN (06:32)
[2019-08-19] MEDS ORDERED: GLUCAGON 1 MG/VIAL IM PRN (06:32)
[2019-08-19] MEDS: INSULIN -REGULAR HUMAN 50 UNIT/0.5 ML ML SQ SCH ×2 (08:00→11:49)
[2019-08-19] MEDS ORDERED: INSULIN 70/30 100 UNITS/ML SQ SCH ×2 (08:00→17:00)
[2019-08-19] MEDS: ENOXAPARIN 40 MG/0.4 ML SQ SCH (08:07)
--- NOTE | 2019-08-19 12:06 | P.DS ---
Admission Date: 08/18/19 Discharge Date: 08/19/19 Disposition: ROUTINE DISCHARGE Discharge Condition: GOOD Reason for Admission: Diabetic ketoacidosis Brief History of Present Illness: Patient is a 23-year-old gentleman with poorly-controlled diabetes. Patient has had numerous admissions for diabetic ketoacidosis. Patient is not compliant with his insulin regimen. Patient was found have DKA and was admitted to the hospital for further evaluation. Patient was started on IV fluids and insulin drip. Patient will be admitted for further evaluation. Hospital Course: Overall during the hospital stay patient remained stable Patient was initially admitted to the hospital for diabetic ketoacidosis along with cocaine and amphetamine abuse. Patient was started on insulin drip admitted to the ICU. Patient initial gap was over 18. In the next 24 hr patient had marked improvement in his symptoms and his gap closed x2 along with ketones in the urine were also negative. Patient at that time was transitioned over to long-acting insulin once his sugars were stable he was discharged home under stable condition. Patient does not have any health insurance and is very noncompliant with following up with the clinic however he does take over the counter insulin from [employer]. Patient was advised to take 20 units of 70 30 NovoLog in the morning and 30 at night time. Patient demonstrate understanding and was asked to follow up with [facility] in about 1-2 days post discharge and keep a blood sugar log as well. Vital Signs/Physical Exam: Temp Pulse Resp BP Pulse Ox 98.5 F 79 19 138/92 H 98 08/19/19 04:00 08/19/19 11:00 08/19/19 11:00 08/19/19 11:00 08/19/19 04:00 General: Alert, In no apparent distress HEENT: Atraumatic, PERRLA, EOMI Neck: Supple, JVD not distended Respiratory: Clear to auscultation bilaterally, Normal air movement Cardiovascular: Regular rate/rhythm, Normal S1 S2 Gastrointestinal: Normal bowel sounds, No tenderness Musculoskeletal: No tenderness Integumentary: No rashes Neurological: Normal speech, Normal tone, Normal affect Lymphatics: No axilla or inguinal lymphadenopathy Laboratory Data at Discharge: WBC 12.5 K/uL (4.3-10.9) H D 08/19/19 04:39 Hgb 13.8 g/dL (13.6-17.9) 08/19/19 04:39 Hct 40.2 % (39.6-49.0) 08/19/19 04:39 Plt Count 278 K/uL (152-406) 08/19/19 04:39 PT 9.7 SECONDS (9.5-12.5) 08/18/19 04:13 INR 0.82 08/18/19 04:13 APTT 27.1 SECONDS (24.3-36.9) 08/18/19 04:13 Sodium 138 mmol/L (136-145) 08/19/19 04:39 Potassium 3.8 mmol/L (3.5-5.1) 08/19/19 04:39 BUN 14 mg/dL (7-18) 08/19/19 04:39 Creatinine 0.92 mg/dL (0.55-1.3) 08/19/19 04:39 Glucose 290 mg/dL (74-106) H 08/19/19 04:39 Phosphorus 1.2 mg/dL (2.5-4.9) L 08/19/19 04:39 Magnesium 2.0 mg/dL (1.8-2.4) 08/19/19 04:39 Total Bilirubin 0.5 mg/dL (0.2-1.0) 08/19/19 04:39 AST 13 U/L (15-37) L 08/19/19 04:39 ALT 17 U/L (12-78) 08/19/19 04:39 Alkaline Phosphatase 86 U/L (45-117) 08/19/19 04:39 Triglycerides Cancelled 08/19/19 08:00 Cholesterol Cancelled 08/19/19 08:00 HDL Cholesterol Cancelled 08/19/19 08:00 Cholesterol/HDL Ratio Cancelled 08/19/19 08:00 Lipase 50 U/L (73-393) L 08/18/19 00:30 Home Medications: Insulin 70/30 NPH/Reg Human [Novolin 70/30*] 20 unit SQ DAILY AT SUPPER #10 ml 08/19/19 Insulin 70/30 NPH/Reg Human [Novolin 70/30*] 30 unit SQ DAILY WITH BREAKFAST # 10 ml 08/19/19 New Medications: Insulin 70/30 NPH/Reg Human [Novolin 70/30*] 20 unit SQ DAILY AT SUPPER #10 ml Insulin 70/30 NPH/Reg Human [Novolin 70/30*] 30 unit SQ DAILY WITH BREAKFAST # 10 ml Diet: ADA Activity: Ad miguelito
[2019-08-19 13:08] VITALS: BP 124/78; TEMP 98.6
[2019-08-19] MEDS ORDERED: INSULIN 70/30 100 UNITS/ML SQ ONE (21:30)
== END 2019-08-19 12:55 | disposition home or self-care (01) | DRG 639 ==
LOC: ER 23:28 → ERHOLD 08-18 01:06 → 3RD-ICU 08-18 02:21
PROVIDERS: ADMIT Hospitalist; ATTEND Hospitalist
DX: E10.10 Type 1 diabetes mellitus with ketoacidosis without coma (principal); F14.10 Cocaine abuse, uncomplicated; F15.14 Other stimulant abuse with stimulant-induced mood disorder; Z91.14 Patient's other noncompliance with medication regimen
CPT/HCPCS: 36415; 71045; 80048; 80053; 80061; 80076; 80307; 80320; 80329; 81001; 81003; 82010; 82805; 82947; 83605; 83690; 83735; 83880; 84100; 84145; 84484; 85025; 85610; 85730; 87040; 93005; 96365; 96368; 96375; 99285; J0696; J1650; J1815; J2405; J7030

== ENCOUNTER 2019-10-10 11:43 | Inpatient (IN) | payer SELFPAY ==
--- OUTSIDE RECORDS SUMMARY | 2019-10-10 11:46 | XMS REPORT ---
:1995 [facility] Address [address] [place] [address] Dr. Gottlieb [address] [place] [id number] Care Team Providers Name Role Phone Unavailable Unavailable Unavailable Problems This patient has no known problems. Allergies, Adverse Reactions, Alerts This patient has no known allergies or adverse reactions. Medications This patient has no known medications.
[2019-10-10] MEDS ORDERED: FENTANYL CITR 100 MCG/2 ML ONE (12:18)
[2019-10-10] MEDS ORDERED: NA CHLORIDE 0.9% 1,000 ML ONE ×3 (12:18→14:14)
[2019-10-10 12:19] LABS: Absolute Lymphocytes (CBC) 2.7 K/uL (0.7-4.9); Basophils % 0.4 % (0-1.3); Hematocrit 55.5 % (39.6-49.0); Lymphocytes % 9.1 % (15.3-44.8); RBC Red Blood Cell Count 5.88 M/uL (4.33-5.43)
[2019-10-10 12:23] LABS: Arterial Blood Carboxyhemoglob 1.1 % (0-1.5); Blood Gas Oxyhemoglobin 95.9 % (94-97); Blood O2 Saturation 97.7 % (92-98.5)
[2019-10-10 12:53] LABS: ALT/SGPT 57 U/L (12-78); AST/SGOT 22 U/L (15-37); Albumin 4.7 g/dL (3.4-5.0); Alkaline Phosphatase 189 U/L (45-117); BUN Blood Urea Nitrogen 33 mg/dL (7-18); Bilirubin Direct 0.1 mg/dL (0-0.2); Bilirubin Total 0.5 mg/dL (0.2-1.0); Glucose Level 404 mg/dL (74-106); Lipase 2237 U/L (73-393); Potassium 4.1 mmol/L (3.5-5.1); Protein, Total 10.6 g/dL (6.4-8.2); Sodium Level 140 mmol/L (136-145)
[2019-10-10 12:58] LABS: Bicarbonate 8 mmol/L (21-32)
[2019-10-10 13:01] LABS: Anisocytosis 1+; Blood Morphology Comment NOTED (NOT SEEN); Platelet Estimate INCR; Platelets, Giant FEW
[2019-10-10] MEDS ORDERED: NA CHLORIDE 0.9% 250 ML ONE (13:12)
--- NOTE | 2019-10-10 13:33 | RAD REPORT ---
EXAM DESCRIPTION: CT - Abdomen Pelvis Wo Contrast - 10/10/2019 1:26 pm CLINICAL HISTORY: Abdominal pain. ABD PAIN COMPARISON: [facility] Protocol dated 04/02/2018 TECHNIQUE: CT imaging of the abdomen and pelvis was performed without contrast. Solid organ, bowel a nd vascular assessment is limited due to lack of IV and oral contrast. All CT scans are performed using dose optimization technique as appropriate and may include automated exposure control or mA/KV adjustment according to patient size. FINDINGS: The lower lung casillas are clear.Cholecystectomy clips. The liver, spleen, pancreas, adrenal glands and kidneys are within normal limits for a limited non-co ntrast examination. No bowel obstruction, free air, free fluid or abscess. The appendix is normal. Left L5-S1 pars defects seen. IMPRESSION: No acute intra-abdominal or pelvic findings. A limited non-contrast examination was performed as detailed.
--- NOTE | 2019-10-10 13:50 | EDPHYS ---
Physician Documentation [facility] Name: Tano Shelley Jr Age: 24 yrs Sex: Male : 1995 Arrival Date: 10/10/2019 Time: 11:47 Bed 20 Private MD: ED Physician Adonis Ramos HPI: 10/10 12:45 This 24 yrs old Male presents to ER via EMS with complaints of abd pain, n/v, kb high sugar. 12:45 The patient presents with abdominal pain that is diffuse. Onset: The symptoms/episode kb began/occurred yesterday. The symptoms do not radiate. Associated signs and symptoms: Pertinent positives: nausea and vomiting. The symptoms are described as constant. Modifying factors: The symptoms are alleviated by nothing, the symptoms are aggravated by nothing. Severity of pain: At its worst the pain was moderate in the emergency department the pain is unchanged. The patient has experienced similar episodes in the past. The patient has not recently seen a physician. Historical: - Allergies: 11:50 No Known Allergies; aj1 - Home Meds: 11:50 Novolin 70/30 [place] Sub-Q [Active]; Levemir subcutaneous subcutaneous [Active]; aj1 - PMHx: 11:50 Diabetes - IDDM; aj1 - Immunization history:: Adult Immunizations up to date. - Social history:: Smoking status: Patient uses tobacco products, smokes one pack cigarettes per day. - Ebola Screening: : Patient denies travel to an Ebola-affected area in the 21 days before illness onset. ROS: 12:42 Constitutional: Negative for fever, chills, and weight loss, ENT: Negative for injury, kb pain, and discharge, Neck: Negative for injury, pain, and swelling, Cardiovascular: Negative for chest pain, palpitations, and edema, Respiratory: Negative for shortness of breath, cough, wheezing, and pleuritic chest pain, Back: Negative for injury and pain, MS/Extremity: Negative for injury and deformity, Skin: Negative for injury, rash, and discoloration, Neuro: Negative for headache, weakness, numbness, tingling, and seizure. 12:42 Abdomen/GI: Positive for abdominal pain, nausea and vomiting. Exam: 12:45 Constitutional: This is a well developed, well nourished patient who is awake, alert, kb and in no acute distress. Head/Face: Normocephalic, atraumatic. ENT: Nares patent. No nasal discharge, no septal abnormalities noted. Tympanic membranes are normal and external auditory canals are clear. Oropharynx with no redness, swelling, or masses, exudates, or evidence of obstruction, uvula midline. Mucous membranes moist. Neck: Trachea midline, no thyromegaly or masses palpated, and no cervical lymphadenopathy. Supple, full range of motion without nuchal rigidity, or vertebral point tenderness. No Meningismus. Chest/axilla: Normal chest wall appearance and motion. Nontender with no deformity. No lesions are appreciated. Cardiovascular: Regular rate and rhythm with a normal S1 and S2. No gallops, murmurs, or rubs. Normal PMI, no JVD. No pulse deficits. Back: No spinal tenderness. No costovertebral tenderness. Full range of motion. Skin: Warm, dry with normal turgor. Normal color with no rashes, no lesions, and no evidence of cellulitis. MS/ Extremity: Pulses equal, no cyanosis. Neurovascular intact. Full, normal range of motion. Neuro: Awake and alert, GCS 15, oriented to person, place, time, and situation. Cranial nerves II-XII grossly intact. Motor strength 5/5 in all extremities. Sensory grossly intact. Cerebellar exam normal. Normal gait. 12:45 Respiratory: the patient does not display signs of respiratory distress, Respirations: tachypnea, Breath sounds: no acute changes. 12:45 Abdomen/GI: Inspection: abdomen appears normal, Bowel sounds: normal, in all quadrants, Palpation: soft, in all quadrants, moderate abdominal tenderness, in all quadrants. 13:50 ECG was reviewed by the Attending Physician. kb Vital Signs: 11:50 BP 119 / 86; Pulse 123; Resp 24; Temp 97.0; Pulse Ox 100% on R/A; Weight 70.31 kg (R); aj1 Pain 10/10; 12:28 BP 125 / 93; Pulse 110; Resp 20; Pulse Ox 100% on R/A; aj1 13:34 BP 135 / 106; Pulse 106; Resp 18; Pulse Ox 100% on R/A; mh5 14:30 BP 135 / 96; Pulse 111; Resp 24; Pulse Ox 100% on R/A; aj1 15:30 BP 126 / 86; Pulse 101; Resp 24; Pulse Ox 100% on R/A; aj1 16:30 BP 126 / 86; Pulse 99; Resp 22 S; Pulse Ox 100% ; aj1 17:30 BP 138 / 88; Pulse 96; Resp 18; Pulse Ox 100% on R/A; aj1 MDM: 11:48 Patient medically screened. kb 12:42 Data reviewed: vital signs, nurses notes. Data interpreted: Pulse oximetry: on room air kb is 100 %. Interpretation: normal. 13:42 Counseling: I had a detailed discussion with the patient and/or guardian regarding: the kb historical points, exam findings, and any diagnostic results supporting the discharge/admit diagnosis, lab results, radiology results, the need for further work-up and treatment in the hospital. Physician consultation: Chaka Rich MD was contacted at 13:43, regarding admission, to the ICU, patient's condition, and will see patient in ED, shortly. 10/10 11:49 Order name: Acetone, Serum kb 10/10 11:49 Order name: Basic Metabolic Panel kb 10/10 11:49 Order name: CBC with Diff; Complete Time: 13:04 kb 10/10 11:49 Order name: Hepatic Function; Complete Time: 13:00 kb 10/10 11:49 Order name: Lipase; Complete Time: 13:00 kb 10/10 11:49 Order name: ABG; Complete Time: 13:58 kb 10/10 11:49 Order name: Acetone Level; Complete Time: 13:00 EDMS 10/10 11:49 Order name: Basic Metabolic Panel; Complete Time: 13:00 EDMS 10/10 12:24 Order name: Glucose, Ancillary Testing; Complete Time: 12:27 EDMS 10/10 12:26 Order name: Manual Differential; Complete Time: 13:04 EDMS 10/10 13:05 Order name: Urine Drug Screen kb 10/10 13:42 Order name: Osmolality, Serum; Complete Time: 14:55 kb 10/10 14:32 Order name: Glucose, Ancillary Testing; Complete Time: 14:36 EDMS 10/10 16:00 Order name: Glucose, Ancillary Testing; Complete Time: 16:02 EDMS 10/10 11:49 Order name: EKG; Complete Time: 11:49 kb 10/10 11:49 Order name: EKG - Nurse/Tech; Complete Time: 12:02 kb 10/10 13:14 Order name: Abdomen ; Complete Time: 13:36 EDMS 10/10 16:03 Order name: Glucose, Ancillary Testing; Complete Time: 16:04 EDMS 10/10 16:34 Order name: Glucose, Ancillary Testing; Complete Time: 16:34 EDMS 10/10 17:05 Order name: Glucose, Ancillary Testing; Complete Time: 17:06 EDMS 10/10 17:23 Order name: Acetone Level EDMS 10/10 17:27 Order name: Urine Dipstick--Ancillary (enter results) ms 10/10 17:32 Order name: Urine Dipstick-Ancillary EDMS 10/10 17:43 Order name: Basic Metabolic Panel EDMS 10/10 11:49 Order name: IV Saline Lock; Complete Time: 12:14 kb 10/10 11:49 Order name: Labs collected and sent; Complete Time: 12:14 kb EC:50 Rate is 116 beats/min. Rhythm is regular. Right axis deviation noted. DE interval is kb normal at 130 msec. QRS interval is normal at 84 msec. QT interval is normal at 450 msec. Administered Medications: 12:19 Drug: fentaNYL (PF) 25 mcg {Note: RASS score 1 patient is restless.} Route: IVP; Site: [facility] right forearm; 13:30 Follow up: Response: No adverse reaction; Pain is decreased; RASS: Alert and Calm (0) [facility] 12:20 Drug: NS 0.9% 1000 ml Route: IV; Rate: 1000 ml; Site: right wrist; [facility] 13:30 Follow up: IV Status: Completed infusion; IV Intake: 1000ml [facility] 13:13 Drug: NS 0.9% 1000 ml Route: IV; Rate: 1000 ml; Site: right antecubital; [facility] 16:53 Follow up: IV Status: Completed infusion; IV Intake: 1000ml [facility] 14:20 Drug: NS 0.9% 1000 ml Route: IV; Rate: 250 ml/hr; Site: right antecubital; [facility] 16:30 Follow up: IV Status: Completed infusion; IV Intake: 400ml [facility] 14:21 Drug: Insulin Drip - (Insulin Regular Human 100 units, NS 0.9% 100 ml) {Co-Signature: [facility] iw (Briseyda Marinelli RN).} Route: IV; Rate: calculated rate; Site: right forearm; 17:30 Follow up: IV Status: IV converted to saline lock; IV Intake: 5ml aj1 Disposition: 10/10/19 13:48 Hospitalization ordered by Chaka Rich for Inpatient Admission. Preliminary diagnosis is Type 1 diabetes mellitus with ketoacidosis without coma. - Bed requested for Intensive Care Unit. - Status is Inpatient Admission. iw - Condition is Stable. - Problem is new. - Symptoms are unchanged. UTI on Admission? No Addendum: 10/12/2019 10:23 Co-signature as Attending Physician, Adonis Ramos MD I agree with the assessment and c galicia plan of care. Signatures: Dispatcher [employer] [facility] Nasrin Almendarez, CORPORATE EVENTS DIRECTOR-C CORPORATE EVENTS DIRECTOR-Ckb Laurence Cuenca, RN RN ajAdonis Barakat MD MD cha Williams, Irene, RN RN iw Charleen Rosas ms Briseyda Marinelli RN iw Corrections: (The following items were deleted from the chart) 10/10 13:13 13:04 Abdomen Pelvis W Con+CT.RAD.BRZ ordered. [facility] 15:12 13:48 Hospitalization Ordered by Chaka Rich MD for Inpatient Admission. Preliminary ms diagnosis is Type 1 diabetes mellitus with ketoacidosis without coma. Bed requested for Telemetry/MedSurg (Inpatient). Status is Inpatient Admission. Condition is Stable. Problem is new. Symptoms are unchanged. UTI on Admission? No. kb 18:00 15:12 10/10/2019 13:48 Hospitalization Ordered by Chaka Rich MD for Inpatient iw Admission. Preliminary diagnosis is Type 1 diabetes mellitus with ketoacidosis without coma. Bed requested for Intensive Care Unit. Status is Inpatient Admission. Condition is Stable. Problem is new. Symptoms are unchanged. UTI on Admission? No. ms
--- NOTE | 2019-10-10 13:50 | ER ---
Nurse's Notes [facility] Name: Tano Shelley Jr Age: 24 yrs Sex: Male : 1995 Arrival Date: 10/10/2019 Time: 11:47 Bed 20 Private MD: Diagnosis: Type 1 diabetes mellitus with ketoacidosis without coma Presentation: 10/10 11:50 Presenting complaint: EMS states: Sharp diffuse abdominal pain and vomiting, his blood aj1 sugar was over 500. 11:50 Transition of care: patient was not received from another setting of care. Onset of aj1 symptoms was October 10, 2019. Risk Assessment: Do you want to hurt yourself or someone else? Patient reports no desire to harm self or others. Initial Sepsis Screen: Does the patient meet any 2 criteria? RR > 20 per min. HR > 90 bpm. Yes Does the patient have a suspected source of infection? Yes: Acute abdominal pain If YES to both, name of provider notified: Nasrin NORMAN. Care prior to arrival: None. 11:50 Method Of Arrival: EMS: [facility] aj1 11:50 Acuity: SELIN 2 aj1 Triage Assessment: 11:50 General: Appears uncomfortable, Behavior is anxious, restless. Pain: Complains of pain aj1 in abdomen diffusely. Historical: - Allergies: 11:50 No Known Allergies; aj1 - Home Meds: 11:50 Novolin 70/30 [place] Sub-Q [Active]; Levemir subcutaneous subcutaneous [Active]; aj1 - PMHx: 11:50 Diabetes - IDDM; aj1 - Immunization history:: Adult Immunizations up to date. - Social history:: Smoking status: Patient uses tobacco products, smokes one pack cigarettes per day. - Ebola Screening: : Patient denies travel to an Ebola-affected area in the 21 days before illness onset. Screenin:50 Abuse screen: Denies threats or abuse. Denies injuries from another. Nutritional aj1 screening: No deficits noted. Tuberculosis screening: No symptoms or risk factors identified. 17:30 Fall Risk No fall in past 12 months (0 pts). No secondary diagnosis (0 pts). IV access aj1 (20 points). Ambulatory Aid- None/Bed Rest/Nurse Assist (0 pts). Gait- Normal/Bed Rest/Wheelchair (0 pts) Mental Status- Oriented to own ability (0 pts). Total Farias Fall Scale indicates No Risk (0-24 pts). Assessment: 11:50 General: Appears uncomfortable, Behavior is anxious, restless. Pain: Complains of pain aj1 in abdomen diffusely Pain does not radiate. Pain currently is 10 out of 10 on a pain scale. Quality of pain is described as sharp, Pain began suddenly. Neuro: Level of Consciousness is awake, alert, obeys commands, Oriented to person, place, time, situation. Cardiovascular: Denies chest pain, palpitations, shortness of breath, Heart tones S1 S2 present Capillary refill < 3 seconds Rhythm is sinus tachycardia. Respiratory: Airway is patent Respiratory effort is even, unlabored, Respiratory pattern is regular, symmetrical, tachypnea Breath sounds are clear bilaterally. GI: Abdomen is flat, non-distended, Bowel sounds present X 4 quads. Abd is soft X 4 quads Abdomen is tender to palpation X 4 quads. Reports lower abdominal pain, upper abdominal pain, nausea, vomiting, Patient currently denies diarrhea. : No signs and/or symptoms were reported regarding the genitourinary system. EENT: No signs and/or symptoms were reported regarding the EENT system. Derm: No signs and/or symptoms reported regarding the dermatologic system. Skin is pink, warm \T\ dry. normal. Musculoskeletal: No signs and/or symptoms reported regarding the musculoskeletal system. Circulation, motion, and sensation intact. 12:45 Reassessment: Patient appears in no apparent distress at this time. No changes from aj1 previously documented assessment. Patient and/or family updated on plan of care and expected duration. Pain level reassessed. Patient is alert, oriented x 3, equal unlabored respirations, skin warm/dry/pink. 13:40 Reassessment: Patient appears in no apparent distress at this time. No changes from aj1 previously documented assessment. Patient and/or family updated on plan of care and expected duration. Pain level reassessed. Patient is alert, oriented x 3, equal unlabored respirations, skin warm/dry/pink. Patient states that his pain is coming back and he would like more pain medication. Notified Yair Almendarez NP. 14:23 Reassessment: Patient appears in no apparent distress at this time. Patient and/or aj1 family updated on plan of care and expected duration. Pain level reassessed. Patient states that he is having pain again, patient falls asleep as soon as he is not being spoken to, sleeping during finger stick for blood sugar. Will reassess patient alertness. 14:24 Reassessment: Insulin drip started at 5 units per hour. aj1 14:45 Reassessment: Patient states that he is having a lot of pain now, spoke with Dr. Hilario santos via telephone. Order received. 15:20 Reassessment: Patient's blood sugar dropped 100 mg/dL in the last hour. Insulin drip aj1 was paused and fluids were changed to D5 1/2 NS per patient's admission orders. Will continue to monitor, recheck FSBS in 30 minutes and restart insulin drip when appropriate. 15:50 Reassessment: Patient's FSBS is 109 at this time. Will continue to hold insulin drip aj1 and recheck the blood sugar. 16:20 Reassessment: Patient FSBS is 116 at this time. Spoke with Dr. Rich via telephone, tom notified that patient has been off of insulin drip with D5 1/2 NS infusing per orders, but blood sugar has not increased high enough to allow the insulin drip to be restarted. Notified that repeat BMP and acetone level has been drawn but not resulted at this time. Order received to continue to hold insulin drip until BMP results are back, call back with lab results for further orders. Vital Signs: 11:50 BP 119 / 86; Pulse 123; Resp 24; Temp 97.0; Pulse Ox 100% on R/A; Weight 70.31 kg (R); aj1 Pain 10/10; 12:28 BP 125 / 93; Pulse 110; Resp 20; Pulse Ox 100% on R/A; aj1 13:34 BP 135 / 106; Pulse 106; Resp 18; Pulse Ox 100% on R/A; mh5 14:30 BP 135 / 96; Pulse 111; Resp 24; Pulse Ox 100% on R/A; aj1 15:30 BP 126 / 86; Pulse 101; Resp 24; Pulse Ox 100% on R/A; aj1 16:30 BP 126 / 86; Pulse 99; Resp 22 S; Pulse Ox 100% ; aj1 17:30 BP 138 / 88; Pulse 96; Resp 18; Pulse Ox 100% on R/A; aj1 ED Course: 11:47 Patient arrived in ED. kb 11:48 Nasrin Almendarez FNP-C [facility]. kb 11:48 Adnois Ramos MD is Attending Physician. kb 11:50 No provider procedures requiring assistance completed. Maintain EMS IV. Dressing aj1 intact. Good blood return noted. Site clean \T\ dry. Gauge \T\ site: 22g left FA. IV 20g SL to right AC, sluggish to flush, no blood return, patient reports that it hurts when attempting to flush. DC'd 20g SL to right AC. Catheter intact, no redness, swelling or drainage to site.. Site covered with 2x2 and secured with tape.. 11:50 Arm band placed on. aj1 11:53 Laurence Cuenca, RN is Primary Nurse. aj1 12:02 EKG done, by ED staff, reviewed by Nasrin NORMAN. [facility] 12:03 Patient has correct armband on for positive identification. Bed in low position. Call mh5 light in reach. Side rails up X2. Warm blanket given. stadium manager on. Pulse ox on. NIBP on. 12:05 Initial lab(s) drawn, by az, sent to lab. Inserted saline lock: 20 gauge in right aj1 forearm, using aseptic technique. Blood collected. 12:22 Triage completed. aj1 13:25 CT completed. Patient tolerated procedure well. Patient moved back from CT. mw3 13:26 Abdomen In Process Unspecified. EDMS 13:43 Chaka Rich MD is Hospitalizing Provider. kb 17:30 Patient admitted, IV remains in place. aj1 Administered Medications: 12:19 Drug: fentaNYL (PF) 25 mcg {Note: RASS score 1 patient is restless.} Route: IVP; Site: aj1 right forearm; 13:30 Follow up: Response: No adverse reaction; Pain is decreased; RASS: Alert and Calm (0) aj1 12:20 Drug: NS 0.9% 1000 ml Route: IV; Rate: 1000 ml; Site: right wrist; aj1 13:30 Follow up: IV Status: Completed infusion; IV Intake: 1000ml aj1 13:13 Drug: NS 0.9% 1000 ml Route: IV; Rate: 1000 ml; Site: right antecubital; aj1 16:53 Follow up: IV Status: Completed infusion; IV Intake: 1000ml aj1 14:20 Drug: NS 0.9% 1000 ml Route: IV; Rate: 250 ml/hr; Site: right antecubital; aj1 16:30 Follow up: IV Status: Completed infusion; IV Intake: 400ml aj1 14:21 Drug: Insulin Drip - (Insulin Regular Human 100 units, NS 0.9% 100 ml) {Co-Signature: aj1 iw (Briseyda Marinelli RN).} Route: IV; Rate: calculated rate; Site: right forearm; 17:30 Follow up: IV Status: IV converted to saline lock; IV Intake: 5ml aj1 Intake: 13:30 IV: 1000ml; Total: 1000ml. aj1 16:30 IV: 400ml; Total: 1400ml. aj1 16:53 IV: 1000ml; Total: 2400ml. aj1 17:30 IV: 5ml; Total: 2405ml. aj1 Outcome: 13:48 Decision to Hospitalize by Provider. kb 17:30 Patient left the ED. aj1 17:30 Admitted to ICU accompanied by nurse, accompanied by tech, via stretcher, on monitor, aj1 with chart. 17:30 Condition: improved 17:30 Discharge instructions given to patient, Instructed on the need for admit, Demonstrated understanding of instructions. Signatures: Dispatcher [employer] Nasrin Raya, ENGLISH TUTOR-C ENGLISH TUTOR-CkLaurence Brownlee, RN RN Briseyda Andres, DAVID HERNANDEZ iw Charleen Andrews [facility] Vivien Rouse 3 Briseyda Marinelli RN iw Corrections: (The following items were deleted from the chart) 18:22 18:00 Patient left the ED. iw aj1
[2019-10-10] MEDS ORDERED: INSULIN -REGULAR HUMAN 100 UNIT in NA CHLORIDE 0.9% 100 ML IV SCH (14:00)
[2019-10-10] MEDS ORDERED: ONDANSETRON 4 MG/2 ML VIAL IV PRN (14:37)
[2019-10-10] MEDS ORDERED: NA CHLORIDE 0.9% 1,000 ML IV ONE (14:37)
[2019-10-10] MEDS ORDERED: MORPHINE 2 MG/ML SYR ONE (14:43)
[2019-10-10] MEDS: MORPHINE 2 MG/ML SYR IV PRN ×2 (14:45→21:03)
[2019-10-10] MEDS: NACHLORIDE 0.45% 1,000 ML IV SCH ×2 (15:00→18:06)
[2019-10-10] MEDS: D5 0.45 NS 1,000 ML IV SCH ×2 (15:00→19:43)
[2019-10-10 17:26] LABS: BUN Blood Urea Nitrogen 25 mg/dL (7-18); Bicarbonate 19 mmol/L (21-32); Glucose Level 181 mg/dL (74-106); Potassium 3.9 mmol/L (3.5-5.1); Sodium Level 150 mmol/L (136-145)
[2019-10-10 17:32] LABS: Urine Blood NEGATIVE (NEG); Urine Glucose 2+ (NEG); Urine Protein 1+ (NEG); Urine Specific Gravity 1.025 (1.005-1.030); Urine pH 5.5 (5.0-7.0)
[2019-10-10 17:41] LABS: Barbiturates NEGATIVE (NEGATIVE); Benzodiazepines NEGATIVE (NEGATIVE); Cocaine NEGATIVE (NEGATIVE); METHAMPHETAM POSITIVE (NEGATIVE); Methadone NEGATIVE (NEGATIVE); Opiates NEGATIVE (NEGATIVE); Phencyclidine NEGATIVE (NEGATIVE); THC Cannibis POSITIVE (NEGATIVE)
[2019-10-10] MEDS: ENOXAPARIN 30 MG/0.3 ML SQ SCH (18:06)
--- NOTE | 2019-10-10 22:01 | HP ---
Date of Admission: 10/10/2019 Chief Complaint: Abdominal pain, nausea, vomiting. Primary Care Physician: None. History Of Present Illness: Patient is a 24-year-old male with past medical history of type 1 diabetes with multiple episodes of DKA, noncompliant, comes in with abdominal pain, which was sudden onset, epigastric, located in the epigastrium, nonradiating, crampy-type pain associated with nausea and vomiting. No alleviating factors. Patient came into the ER for further evaluation. His workup revealed a pH of 7.23. He was severely acidotic. White blood cell count of 30,000. He had a creatinine of 1.92, glucose was 404. Ketones were present. Serum osmolality was high. Lipase was also elevated at 2200. The patient did admit to using cocaine and marijuana. Imaging studies including CT scan did not show any acute changes. Patient was started on insulin drip, given 2 L normal saline bolus and then referred for admission. Past Medical History: Diabetes mellitus type 1, GERD. Surgical History: Cholecystectomy. Allergies: NO KNOWN DRUG ALLERGIES. Medications: The patient takes regular insulin 50 units as needed, not on any long-acting insulin. Social History: Patient smokes cigarettes, marijuana, has used cocaine previously. Patient is single, has 3 children, works at [employer] the [employer]. Family History: Father had hypertension and diabetes. Review of Systems: Ten point system reviewed, negative except as per HPI. Physical Examination: Vital Signs: Blood pressure 119/86, pulse 123, respirations 24, temperature 97 , O2 100% on room air. General: Awake, alert, and oriented x3, in moderate distress due to pain, ill- appearing male. HEENT: Normocephalic, atraumatic. PERRLA. EOMI. Dry mucous membranes. Oropharynx is clear. Conjunctivae are anicteric. Neck: Supple. No JVD. Trachea midline. CV: S1, S2. Sinus tachycardia. Peripheral pulses present. Respiratory: Moving air well bilaterally. No wheezing or stridor. No use of accessory muscles. The patient is tachypneic. Gastrointestinal: Abdomen is soft. Tenderness to palpation. Patient has voluntary guarding. No rigidity. Positive bowel sounds. Extremities: No clubbing, cyanosis, or edema. No calf tenderness. Neurologic: Cranial nerves 2 through 12 intact grossly. No focal neurological deficits. Speech is normal. Laboratory Data: Acetone level is present. Sodium 140, potassium 4.1, chloride 106, CO2 8, BUN 33, creatinine 1.92, glucose 404. Serum osmolality 342 , calcium 9.1, alkaline phosphatase 189, AST 22, ALT 57, albumin 4.7, lipase 2237, total bilirubin 0.5. ABG; pH 7.23, pO2 132, bicarb 5.9. WBC 29.9, H and H 18.2 and 55.5, platelets 159, neutrophils 86%. Imaging Studies: CT scan of the abdomen shows left L5-S1 pars defect. No acute intraabdominal or pelvic finding. Appendix is normal. Cholecystectomy clips seen. Assessment And Plan: A 24-year-old male with, 1. Diabetic ketoacidosis. We will start on IV insulin drip and monitor serial anion gap currently elevated. Patient is acidotic, high serum osmolality , blood glucose is 400. The patient has type 1 diabetic, has been counseled. Patient received 2 L of IV fluids. We will bolus with 1 more liter. 2. Acute kidney injury likely secondary to above. We will continue with IV fluids and monitor. Avoid NSAIDs. 3. Epigastric abdominal pain, likely related to nausea, vomiting, and DKA. Patient does have elevated lipase level of 2200, but no signs of pancreatitis on CT scan. We will continue to monitor IV pain medications p.r.n. 4. Noncompliance, intentional. Counseled. 5. Polysubstance abuse including cocaine, marijuana. Patient has been counseled. Denies IV drug use. 6. Nicotine dependence with cigarette smoking, continuous, counseled. Plan: The patient needs diabetic education. We will admit to ICU, place as inpatient. Length of stay greater than 2 midnights. WIL Voice ID: [id number] [facility] HOSPITALIliana
[2019-10-11 00:20] LABS: BUN Blood Urea Nitrogen 19 mg/dL (7-18); Bicarbonate 22 mmol/L (21-32); Glucose Level 182 mg/dL (74-106); Sodium Level 149 mmol/L (136-145)
[2019-10-11] MEDS: D5 0.45 NS 1,000 ML IV SCH (03:44)
[2019-10-11 05:05] LABS: Absolute Lymphocytes (CBC) 2.2 K/uL (0.7-4.9); Basophils % 0.4 % (0-1.3); Hematocrit 40.9 % (39.6-49.0); Lymphocytes % 10.5 % (15.3-44.8); MPV 8.2 fL (7.6-11.3); RBC Red Blood Cell Count 4.49 M/uL (4.33-5.43)
[2019-10-11 05:22] LABS: BUN Blood Urea Nitrogen 16 mg/dL (7-18); Bicarbonate 23 mmol/L (21-32); Glucose Level 153 mg/dL (74-106); HDL Cholesterol 72 mg/dL (40-60); LDL Cholesterol, Calculated 41 (<130); Lipase 2287 U/L (73-393); Magnesium 2.2 mg/dL (1.8-2.4); Phosphorus 1.6 mg/dL (2.5-4.9); Potassium 3.2 mmol/L (3.5-5.1); Sodium Level 147 mmol/L (136-145)
[2019-10-11 05:31] VITALS: BMI 18.4
[2019-10-11] MEDS ORDERED: POTASSIUM PHOS IN 0.9 % NACL 15 MMOL/250 ML BAG IV ONE (06:00)
[2019-10-11] MEDS ORDERED: GLUCAGON 1 MG/VIAL IM PRN ×2 (08:45→08:46)
[2019-10-11] MEDS ORDERED: D50W 25 GM/50 ML SYRINGE/VIAL IV PRN ×2 (08:45→08:46)
[2019-10-11] MEDS ORDERED: POTASSIUM 25 MEQ EFFERV TAB PO ONE (09:00)
[2019-10-11] MEDS: NA CHLORIDE 0.9% 1,000 ML IV SCH ×2 (09:03→17:21)
[2019-10-11] MEDS: INSULIN GLARGINE 100 UNITS/ML SQ SCH ×2 (09:04→20:18)
--- NOTE | 2019-10-11 10:40 | RAD REPORT ---
EXAM DESCRIPTION: RAD - Chest Single View - 10/11/2019 10:20 am CLINICAL HISTORY: Cough COMPARISON: October 18 TECHNIQUE: AP portable chest image was obtained 1016 hours . FINDINGS: Lungs are clear. Heart and vasculature are normal. No measurable pleural effusion and no p neumothorax. No acute bony abnormality seen. No acute aortic findings suspected. IMPRESSION: No acute cardiopulmonary process. No significant change from comparison.
[2019-10-11] MEDS: INSULIN -REGULAR HUMAN 50 UNIT/0.5 ML ML SQ SCH ×3 (11:34→20:19)
--- NOTE | 2019-10-11 13:50 | PN ---
Date of Progress Note: 10/11/2019 Subjective: Patient seen and examined. Chart reviewed and case discussed with RN. Feeling better today. No further abdominal pain. Did have episode of emesis last night. Medications: List reviewed. Physical Examination: Vital Signs: Temperature 99.3, heart rate 77, blood pressure 125/92, respirations 14, O2 99% on room air. General: Awake, alert, oriented x3. Some mild distress, ill-appearing male. CV: S1, S2. Regular rate and rhythm. Peripheral pulses present. Respiratory: Moving air well bilaterally. No wheezing or stridor. No use of accessory muscles. Gastrointestinal: Abdomen is soft, nontender, nondistended. Positive bowel sounds. Extremities: No clubbing, cyanosis, or edema. Neurologic: Nonfocal. Laboratory Data: Sodium 147, potassium 3.2, chloride 117, CO2 of 23, BUN 16, creatinine 0.84, glucose 153, calcium 7.4, phosphorus 1.6, magnesium 2.2, triglycerides 139, lipase elevated still at 2287. WBC 20.6, H and H 14.1 and 40.9, platelets 349, neutrophils 82%. Assessment And Plan: 24-year-old male with; 1. Diabetic ketoacidosis. Patient's gap is now closed. We will start on long -acting insulin and if blood sugars remained stable, we will discontinue IV insulin. Patient is a type 1 diabetic. We will continue with IV fluids. We will switch to NS. 2. Acute kidney injury, resolved, likely secondary to above. 3. Neutrophilic leukocytosis. Patient also has monocytosis. We will check mono screen, unclear etiology of the leukocytosis. We will start on broad spectrum IV antibiotics. We will check chest x-ray and obtain blood cultures. Flu screen. Obtain blood cultures. 4. Epigastric abdominal pain, likely related to intractable nausea and vomiting, and diabetic ketoacidosis. Elevated lipase level, but no signs of pancreatitis on CT scan. Improved. 5. Non-intractable nausea and vomiting. Improving with IV with antiemetics. 6. Noncompliance, intentional. Counseled. 7. Polysubstance abuse. Counseled. Patient positive for marijuana and amphetamines. 8. Nicotine dependence with cigarette smoking, continuous. Patient was counseled. 9. Hypokalemia. We will replace and monitor. 10. Hypophosphatemia. Replace and monitor. Plan: If doing well after being switched off IV insulin, we will step down to tele floor. /ORTIZ Voice ID: [id number] Report ID: [id number] MTDD
--- NOTE | 2019-10-11 16:24 | EKG ---
Test Date: 2019-10-10 Test Time: 11:59:26 Drafter Assistant: AYAKA MEASUREMENT RESULTS: Intervals: Rate: 116 CA: 130 QRSD: 84 QT: 324 QTc: 450 [place]: P: 78 CA: 130 QRS: 122 T: 69 INTERPRETIVE STATEMENTS: Sinus tachycardia Biatrial enlargement Right axis deviation Pulmonary disease pattern Abnormal ECG Compared to ECG 08/18/2019 05:56:49 Atrial abnormality now present Electronically Signed On 10-11-19 16:22:42 BROKERAGE CLERK by Daniel Buckner
[2019-10-11] MEDS: ENOXAPARIN 30 MG/0.3 ML SQ SCH (17:21)
[2019-10-11] MEDS ORDERED: VANCOMYCIN 1.25 GM in NA CHLORIDE 0.9% 250 ML IVPB SCH (21:00)
[2019-10-12] MEDS: NA CHLORIDE 0.9% 1,000 ML IV SCH ×4 (02:39→20:45)
[2019-10-12 05:28] LABS: Hematocrit 37.2 % (39.6-49.0); Lymphocytes % 37.5 % (15.3-44.8); MPV 8.8 fL (7.6-11.3); RBC Red Blood Cell Count 4.11 M/uL (4.33-5.43)
[2019-10-12 05:47] LABS: BUN Blood Urea Nitrogen 5 mg/dL (7-18); Bicarbonate 28 mmol/L (21-32); Glucose Level 73 mg/dL (74-106); Lipase 4018 U/L (73-393); Phosphorus 1.6 mg/dL (2.5-4.9); Sodium Level 141 mmol/L (136-145)
[2019-10-12 05:48] LABS: Potassium 2.7 mmol/L (3.5-5.1)
[2019-10-12] MEDS: POTASS/SODIUM PHOSPHATE 1 PKT POWD.PACK PO SCH ×3 (06:23→10:33)
[2019-10-12] MEDS: KCL 20 MEQ/100 mL IVPB 20 MEQ/100 ML BAG IV SCH ×2 (06:23→09:00)
[2019-10-12] MEDS: INSULIN -REGULAR HUMAN 50 UNIT/0.5 ML ML SQ SCH ×4 (07:30→20:45)
[2019-10-12] MEDS: INSULIN GLARGINE 100 UNITS/ML SQ SCH ×2 (08:41→20:45)
[2019-10-12 10:05] LABS: Albumin 2.9 g/dL (3.4-5.0); Bilirubin Direct 0.2 mg/dL (0-0.2); Bilirubin Total 0.8 mg/dL (0.2-1.0); Protein, Total 5.4 g/dL (6.4-8.2)
[2019-10-12] MEDS ORDERED: POTASSIUM CL SA 10 MEQ TAB PO ONE (10:30)
[2019-10-12] MEDS ORDERED: Ringers Lactate 500 ML IV ONE (15:53)
[2019-10-12] MEDS ORDERED: ENOXAPARIN 40 MG/0.4 ML SQ SCH (17:00)
--- NOTE | 2019-10-12 18:00 | PN ---
Date of Progress Note: 10/12/2019 Subjective: Patient seen and examined. Chart reviewed and case discussed with RN and Dr. Mata. Patient continues to have some mild abdominal pain, 1 episode of emesis yesterday. Tolerating diabetic diet. Medications: List reviewed. Physical Examination: Vital Signs: Temperature 97.1, heart rate 80, blood pressure 106/64, respirations 17, O2 of 98% on room air. General: Awake, alert, oriented x3, ill-appearing male, cachectic. BMI 18.5. CV: S1, S2. Regular rate and rhythm. Peripheral pulses present. Respiratory: Moving air well bilaterally. No wheezing or stridor. No use of accessory muscles. Gastrointestinal: Abdomen is soft. Mild tenderness to palpation. No rebound or guarding. Positive bowel sounds. Extremities: No clubbing, cyanosis, or edema. Neurologic: Nonfocal. Laboratory Data: Sodium 141, potassium 2.7. Repeat potassium is 4.2, chloride 107, CO2 of 28, BUN 5, creatinine 0.39, glucose 73. Hemoglobin A1c is 11.3%. Calcium 7.6. Phosphorus 1.6, magnesium 2. AST 26, ALT 29, total bilirubin 0.8 , alkaline phosphatase 86, lipase 4018. Procalcitonin less than 0.05. Blood glucose level has been ranging between 174 to 122. WBC 10.7, H and H 13.1 and 37.2, platelets 268, neutrophils 53%. Blood cultures, no growth to date. Assessment: A 24-year-old male with: 1. Diabetic ketoacidosis, resolved. The patient's anion gap is now closed, off IV insulin, tolerating Lantus and blood sugars are below 200. 2. Acute kidney injury, resolved. 3. Pancreatitis, acute. Patient does have elevated lipase level 4000 along with abdominal pain and nausea. We will continue with IV fluids, unclear etiology. Liver enzymes are within normal limits. Patient is status post cholecystectomy, may have retained duct stone. We will obtain ultrasound of the abdomen. Consult GI. Continue with pain medications p.r.n. with IV morphine. Triglycerides were normal. We will recheck levels. 4. Neutrophilic leukocytosis. Blood cultures, no growth to date. Influenza screen, mono screen are negative. Chest x-ray and UA are negative as well, likely viral. WBC count has normalized. We will discontinue vancomycin. Patient did have some reaction last night and was stopped. 5. Non-intractable nausea and vomiting, improved, but not completely resolved. Continue with IV antiemetics. 6. Noncompliance, intentional. Counseled. 7. Polysubstance abuse, counseled. Positive for marijuana and amphetamines. 8. Nicotine dependence with cigarette smoking. Continuous counseled. 9. Hypokalemia, replaced. We will continue to monitor. 10. Hypophosphatemia, replaced and monitored. Plan: Abdominal ultrasound. GI workup. /ORTIZ Voice ID: [id number] Report ID: [id number] ALISSA
[2019-10-12] MEDS: GLUCERNA SHAKE 237 ML CAN PO SCH (20:43)
[2019-10-12] MEDS ORDERED: INSULIN GLARGINE 100 UNITS/ML SQ ONE (21:00)
[2019-10-12 21:51] VITALS: O2SAT 100
[2019-10-13] MEDS: NA CHLORIDE 0.9% 1,000 ML IV SCH ×2 (03:20→03:35)
[2019-10-13 04:21] LABS: Absolute Lymphocytes (CBC) 3.9 K/uL (0.7-4.9); Basophils % 0.8 % (0-1.3); Hematocrit 36.5 % (39.6-49.0); Lymphocytes % 47.9 % (15.3-44.8); MPV 8.4 fL (7.6-11.3); RBC Red Blood Cell Count 4.04 M/uL (4.33-5.43)
[2019-10-13 04:49] LABS: BUN Blood Urea Nitrogen 9 mg/dL (7-18); Bicarbonate 27 mmol/L (21-32); Lipase 3576 U/L (73-393); Phosphorus 2.7 mg/dL (2.5-4.9); Potassium 3.6 mmol/L (3.5-5.1); Sodium Level 142 mmol/L (136-145)
[2019-10-13 04:50] LABS: Glucose Level 44 mg/dL (74-106)
[2019-10-13] MEDS ORDERED: D5 0.9 NS 1,000 ML IV SCH (06:00)
[2019-10-13] MEDS: INSULIN -REGULAR HUMAN 50 UNIT/0.5 ML ML SQ SCH ×2 (07:30→12:13)
--- NOTE | 2019-10-13 08:43 | RAD REPORT ---
EXAM DESCRIPTION: [id number]/17/2019 7:58 am CLINICAL HISTORY: Abdominal pain COMPARISON: CT abdomen October 10, 2019 TECHNIQUE: Magnetic resonance cholangiogram was performed.3D MIP reconstruction performed FINDINGS: Cholecystectomy The biliary tree is normal caliber without a filling defect. Pancreatic duct is normal caliber IMPRESSION: Cholecystectomy Unremarkable evaluation of the biliary tree and pancreatic duct
--- NOTE | 2019-10-13 08:46 | RAD REPORT ---
EXAM DESCRIPTION: MRI - Mri Abdomen W/Wo Cont - 10/13/2019 7:58 am CLINICAL HISTORY: Abdominal pain/elevated lipase enzymes COMPARISON: October 10, 2019 cat scan TECHNIQUE: Axial and coronal magnetic resonance imaging of the abdomen obtained. 12 cc of MultiHance administered intravenously FINDINGS: Cholecystectomy The pancreas demonstrates mildly heterogeneous signal. Mild peripancreatic edema is present. A pseudo cyst is not visualized. Pancreatic duct is normal caliber. Biliary tree normal caliber. IMPRESSION: Mild pancreatitis
--- NOTE | 2019-10-13 08:47 | RAD REPORT ---
EXAM DESCRIPTION: US - Abdomen Exam Limited - 10/13/2019 8:07 am CLINICAL HISTORY: Abdominal pain. COMPARISON: Cat scan October 10, 2019 FINDINGS: Cholecystectomy. The common bile duct is normal caliber. A stone within the duct is not seen IMPRESSION: Cholecystectomy Unremarkable ultrasound biliary tree
[2019-10-13] MEDS ORDERED: POTASSIUM CL SA 10 MEQ TAB PO ONE (09:00)
[2019-10-13] MEDS: INSULIN GLARGINE 100 UNITS/ML SQ SCH (09:00)
[2019-10-13] MEDS: GLUCERNA SHAKE 237 ML CAN PO SCH (10:01)
[2019-10-13] MEDS ORDERED: Ringers Lactate 1,000 ML IV ONE (12:54)
[2019-10-13] MEDS ORDERED: NA CHLORIDE 0.9% 1,000 ML IV SCH (13:00)
[2019-10-13 13:36] VITALS: BP 121/74; TEMP 98.3
--- NOTE | 2019-10-13 17:07 | PN ---
Date of Progress Note: 10/13/2019 Subjective: Patient was seen and examined, chart reviewed and case discussed with RN and Dr. Armin hendrickson as well as Dr. Lawrence. I explained test results to the patient. He does have mild pancreatitis on MRI. No stones were seen. Patient overall is doing better. He was hypoglycemic because he was n .p.o. and did receive half of his Lantus dose this morning. Medications: List reviewed. Physical Examination: Vital Signs: Temperature 97.1, heart rate 69, blood pressure 120/87, respirations 15, O2 saturation 100% on room air. General: Awake, alert, oriented x3, in some mild distress, ill-appearing cachectic male. BMI 18. CV: S1, S2. Regular rate and rhythm. Peripheral pulses present. Respiratory: Moving air well bilaterally. No wheezing or stridor. No use of accessory muscles. Gastrointestinal: Abdomen is soft. Mild tenderness to palpation. No guarding or rigidity. Positiv e bowel sounds. Extremities: No clubbing, cyanosis, or edema. Neurologic: Nonfocal. Laboratory Data: Sodium 142, potassium 3.6, chloride 110, CO2 of 27, BUN 9, creatinine 0.42, glucose 44, calcium 7.8, phosphorus 2.7. Lipase is 3576. Glucose levels improved to 63, 92 and then 232. WBC 8.2, H and H 12.6/36.5, platelets 242, neutrophils 42%. Blood cultures are negative. Imaging Studies: MRI of the abdomen shows mild pancreatitis, normal duct. Biliary tree is normal. Ultrasound of the abdomen shows cholecystectomy, unremarkable ultrasound biliary tree. MRCP shows ch olecystectomy, unremarkable evaluation of the biliary tree and pancreatic duct. Assessment: A 24-year-old male with: 1.Diabetic ketoacidosis, resolved. Patient was somewhat hypoglycemic today as he was n.p.o. and rec eived half of his dose of Lantus. He was placed on D5W, blood sugars improved, it is 200s, now switc hed back to normal saline. 2.Acute pancreatitis, likely idiopathic. Lipase levels are trending down currently at 3500. Imagin g studies reviewed, did show some pancreatic edema indicating inflammation. No ductal stones. 3.Acute kidney injury, resolved. 4.Non-intractable nausea, vomiting, improved. Continue antiemetics. 5.Noncompliance, intentional. 6.Polysubstance abuse, counseled. UDS positive for marijuana and amphetamines. 7.Nicotine dependence with cigarette smoking. Counseled. 8.Hypokalemia, replace. 9.Hypophosphatemia, replaced. Plan: Continue IV fluids. Appreciate GI input likely discharge in the next 24-48 hours depending on clinical response. /ORTIZ Voice ID: [id number] Report ID: [id number]
--- NOTE | 2019-10-14 02:17 | DS ---
Date of Discharge: 10/13/2019 Ruby Rails Developer: Dr. Mata with GI. Admitting Diagnoses: 1.Diabetic ketoacidosis. 2.Acute kidney injury. 3.Epigastric abdominal pain. 4.Intractable nausea and vomiting. 5.Noncompliance, intentional. 6.Polysubstance abuse including marijuana and cocaine. 7.Nicotine dependence with cigarette smoking. Discharge Diagnoses: 1.Diabetic ketoacidosis, resolved. 2.Acute kidney injury, resolved. 3.Acute pancreatitis, improving. 4.Neutrophilic leukocytosis, resolved. 5.Non-intractable nausea, vomiting, improved. 6.Noncompliance, intentional. 7.Hypokalemia, replaced. 8.Hypophosphatemia, replaced. 9.Polysubstance abuse, positive for marijuana and amphetamines counseled. 10.Nicotine dependence with cigarette smoking, counseled. Hospital Course: Patient is a 24-year-old male with past medical history of diabetes, comes in with DKA. Patient was admitted to the hospital, started on IV insulin. The patient's serial BMPs and ket ones were checked. He was also started on IV fluids and his electrolytes were replaced. Patient did well in terms of his DKA. His gap resolved. He did become somewhat hypoglycemic and switched over to D5 half NS. Patient's insulin dose was adjusted. Patient was counseled extensively regarding his diabetes. He needs to follow up with diabetes education and Endocrinology. He needs to be more com pliant with checking his blood sugars and taking his insulin as prescribed. He was also counseled re garding his amphetamine and marijuana use. Patient did have elevated lipase level and thought to hav e mild acute pancreatitis without any pseudocyst. The patient's lipase level went up. He was starte d on IV fluids. GI was consulted. He has history of cholecystectomy. Imaging studies were obtained , which did not show any retained stones, ductal stones, biliary tree abnormality. The pancreas did show mild edema and inflammation. There was no pseudocyst present. Initial CT scan did not show any pancreatitis. The patient's blood glucose levels were well controlled. His DKA had resolved. Whit e blood cell count had normalized. His chest x-ray, UA, mono screen, and influenza screen were negat laura. He was started on IV vancomycin prophylactically; however, he did seem to have a reaction and w as discontinued. Blood cultures were negative. His white blood cell count normalized, likely was vi ral versus acute phase reactant. Patient then wanted to leave against medical advice. He stated adrian t he has kids at home, nobody will watch them and he is supposed to go back to work and cannot miss a ny more work as he is afraid he is going to lose his job and his apartment, therefore he signed out a gainst medical advice. He was counseled to stay in the hospital. He understands risks of leaving ag ainst medical advice including worsening condition, pancreatitis, recurrence of DKA and possibly even he understands. He is alert and oriented x3 and continue to sign out against medical advice. For physical exam findings please see progress note dictated on the day of discharge. /ORTIZ Voice ID: [id number] Report ID: [id number]
== END 2019-10-13 13:26 | disposition left against medical advice (07) | DRG 637 ==
LOC: ER 11:43 → ERHOLD 14:19 → 3RD-ICU 17:13 → 4TH 10-12 04:15
PROVIDERS: ADMIT Family Medicine; ATTEND Family Medicine
DX: E10.10 Type 1 diabetes mellitus with ketoacidosis without coma (principal); K85.90 Acute pancreatitis without necrosis or infection, unspecified; N17.9 Acute kidney failure, unspecified; F17.210 Nicotine dependence, cigarettes, uncomplicated; F19.10 Other psychoactive substance abuse, uncomplicated; E87.6 Hypokalemia; K21.9 Gastro-esophageal reflux disease without esophagitis; E83.39 Other disorders of phosphorus metabolism; D72.828 Other elevated white blood cell count; D72.821 Monocytosis (symptomatic); Z91.14 Patient's other noncompliance with medication regimen; Z79.4 Long term (current) use of insulin
CPT/HCPCS: 36415; 71045; 74176; 74181; 76705; 80048; 80061; 80076; 80202; 80307; 81003; 82010; 82805; 82947; 83036; 83690; 83735; 83930; 84100; 84132; 84145; 84478; 85025; 86308; 87040; 87804; 93005; 96361; 96365; 96366; 96375; 99285; J1650; J1815; J2270; J2405; J3010; J7030; J7042; J7120; J7799